=== PATIENT | female | born 1995 | race Caucasian/White ===

== ENCOUNTER 2023-06-22 09:31 | Outpatient (OUT) | payer OTHER, SELFPAY ==
[2023-06-22 10:01] LABS: Basophils Absolute Auto 0.1 10^3/uL (0.0-0.1); Basophils Percent Auto 1.1 % (0.2-2.0); Eosinophils Absolute Auto 0.7 10^3/uL (0.0-0.7); Eosinophils Percent Auto 6.4 % (0.9-7.0); Hematocrit 40.3 % (36.0-48.0); Hemoglobin 13.3 g/dL (12.0-16.0); Immature Granulocytes Abs Auto 0.06 10^3/uL (0.00-0.03); Immature Granulocytes Pct Auto 0.6 % (0.0-0.5); Lymphocytes Absolute Auto 2.2 10^3/uL (1.2-3.8); Lymphocytes Percent Auto 20.7 % (20.5-60.0); Mean Corpuscular Hemoglobin 27.3 pg (26.7-34.0); Mean Corpuscular Volume 82.6 fL (81.0-99.0); Mean Platelet Volume 11.3 fL (9.5-13.5); Monocytes Absolute Auto 0.7 10^3/uL (0.3-0.8); Monocytes Percent Auto 6.2 % (1.7-12.0); Platelet Count 265 10^3/uL (150-450); Red Blood Count 4.88 10^6/uL (4.20-5.40); Red Cell Distribution Width 12.4 % (11.0-15.0); White Blood Count 10.8 10^3/uL (4.0-11.0)
[2023-06-22 10:05] LABS: INR 0.98; Partial Thromboplastin Time 30.3 sec (22.3-36.2); Prothrombin Time 10.4 sec (9.0-11.6)
[2023-06-22 10:08] LABS: Estimated Average Glucose 114 mg/dL; Glycohemoglobin A1C 5.6 % (4.5-6.2)
[2023-06-22 10:25] LABS: Free T4 0.97 ng/dL (0.76-1.46)
[2023-06-22 10:30] LABS: HCG Quantitative <1 mIU/mL; Thyroid Stimulating Hormone 2.061 uIU/mL (0.358-3.740)
== END 2023-06-22 09:32 | disposition home or self-care (01) ==
LOC: LAB 09:35
PROVIDERS: PCP Internal Medicine; Visit Provider Physician Assistant
DX: N94.10 Unspecified dyspareunia (principal); N92.1 Excessive and frequent menstruation with irregular cycle
CPT/HCPCS: 36415; 83036; 84439; 84443; 84702; 85025; 85610; 85730

== ENCOUNTER 2023-08-18 19:45 | Outpatient (REF) | payer OTHER, SELFPAY ==
--- OUTSIDE RECORDS SUMMARY | 2023-08-18 19:50 | XMS_ITS | CCD ---
Author Name Unknown Address [address] [place] [address] Organization [facility] Care Team Providers Care Pit Clerk Name Role Phone Cici Fulton Primary [facility] Provider [facility] CICI FULTON Primary Care Unavailable Cici Fulton Primary Care Provider CICI FULTON Primary Care Unavailable VON KUNZ Attending Unavailable Cici Fulton Primary Care Provider [phone] SABINE ., DR ROQUE Attending Unavailable SABINE ., DR ROQUE Consulting Unavailable SABINE ., DR ROQUE Primary Care Unavailable SABINE ., DR ROQUE Admitting Unavailable Cici Fulton Primary Care Provider [phone] Asaad, Imad Unavailable VIPIN HAMPTON Attending Unavailable CICI FULTON Primary Care Unavailable CICI FULTON Primary Care Unavailable BECCA MAK Attending Unavailable CICI FULTON Primary Care Unavailable NAM JEFFREY Attending Unavailable CICI FULTON Primary Care Unavailable Cici Fulton Primary Care Provider [phone] Allergies Allergy Classification Reported Allergen(s) Marco rgy Type Date of Onset Reaction(s) Facility atomoxetine (1 source) atomoxetine Drug Allergy 012 [facility] medroxyPROGESTERone (1 source) medroxyPROGESTERone Drug Allergy 012 [facility] (11 sources) atomoxetine Drug Allergy 012 [place], [place] (12 sources) medroxyPROGESTERone; Translations: [Depo-Provera] Drug Allergy 012 [place], [place] (1 source) atomoxetine Drug Allergy 016 [facility] (2 sources) atomoxetine Drug Allergy [facility] [employer] Other (2 sources) medroxyPROGESTERone Drug Allergy HTN [facility] Nexsan Other Medications Current Medications Medication Drug Class(es) Dates Sig (Normalized) Sig (Original) Acetaminophen / HYDROcodone (2 sources) Opioid Agonist Start: 09-21-2021 hydrocodone-acetam inophen (NORCO) tablet 5-325 mg (STARTER PACK) Start: 09-21-2021 End: 09-21-2021 HYDROcodone-acetaminophen (N ORCO) 5-325 MG per tablet 1 tablet Blood Pressure Monitoring (BLOOD PRESSURE CUFF) [facility] (12 sources) Start: 03-30-2015 Blood Pressure Monitoring (BLOOD PRESSURE CUFF) [facility] Indications: Essential hypertension 1 kit by Does not apply route daily DX Hypertension 1 each 0 03/30/2015 Active gentamicin 3 mg/ml ophthalmic solution (1 source) Start: 04-16-2022 End: 04-26-2022 take 1 drop(s) into the eye(s) four times daily gentamicin (GARAMYCIN) 0.3 % ophthalmic solution Place 1 drop into both eyes 4 times daily for 10 days 1 each 0 04/16/2022 04/26/2022 Active ibuprofen 600 mg oral tablet (1 source) Nonsteroidal Anti-inflammatory Drug Start: 05-10-2023 take 1 tablet by mouth every six hours as needed for pain ibuprofen (IBU) 600 MG tablet Take 1 tablet by mouth every 6 hours as needed for Pain 120 tablet 0 05/10/2023 Active lisdexamfetamine dimesylate 30 mg oral capsule (5 sources) Central Nervous System Stimulant take 1 capsule by mouth once daily in the morning lisdexamfetamine (VYVANSE) 30 MG capsule Take 1 capsule by mouth every morning. 0 Active End: 07-05-2019 take 1 tablet by mouth once daily Lisdexamfetamine Dimesylate (VYVANSE) 40 MG CAPS Indications: Bicuspid aortic valve , Aortic stenosis , Aortic regurgitation Take 1 tablet by mouth daily. 0 07/05/2019 Discontinued (Therapy completed) lisinopril 10 mg oral tablet (15 sources) Angiotensin Converting Enzyme Inhibitor Start: 03-28-2015 End: 07-05-2019 take 1 tablet by mouth once daily lisinopril (PRINIVIL;ZESTRIL) 10 MG tablet Indications: Bicuspid aortic valve , Aortic stenosis , Aortic regurgitation Take 1 tablet by mouth daily 30 tablet 11 03/28/2015 Active methocarbamol 750 mg oral tablet (1 source) Muscle Relaxant Start: 03-06-2023 End: 03-11-2023 take 2 tablets by mouth three times daily, then take 1 tablet by mouth four times daily methocarbamol (ROBAXIN-750) 750 MG tablet Take 2 tablets by mouth 3 times daily for 2 days, THEN 1 tablet 4 times daily for 3 days. 24 tablet 0 03/06/2023 03/11/2023 Active metroNIDAZOLE 250 mg oral tablet (1 source) Nitroimidazole Antimicrobial Start: 03-05-2022 End: 03-12-2022 metroNIDAZOLE (FLAGYL) 250 MG tablet Take 1 tablet by mouth in the morning and 1 tablet at noon and 1 tablet before bedtime. Do all this for 7 days. 21 tablet 0 03/05/2022 03/12/2022 Active naproxen 500 mg oral tablet (1 source) Nonsteroidal Anti-inflammatory Drug Start: 03-06-2023 End: 03-11-2023 take 1 tablet by mouth twice daily at mealtime naproxen (NAPROSYN) 500 MG tablet Take 1 tablet by mouth 2 times daily (with meals) for 5 days 10 tablet 0 03/06/2023 03/11/2023 Active omeprazole 20 mg delayed release oral capsule (14 sources) Proton Pump Inhibitor take 1 capsule by mouth once daily omeprazole (PRILOSEC) 20 MG delayed release capsule Take 1 capsule by mouth daily 0 Active Completed/Discontinued Medications Medication Drug Class(es) Dates Sig (Normalized) Sig (Original) acetaminophen 500 mg oral tablet (1 source) Start: 09-21-2021 End: 09-21-2021 acetaminophen (TYLENOL) tablet 1,000 mg amoxicillin 500 mg oral capsule (3 sources) Penicillin-class Antibacterial Start: 09-25-2014 End: 07-05-2019 take 4 capsules by mouth once amoxicillin (AMOXIL) 500 MG capsule Take 4 capsules by mouth once for 1 dose. 16 capsule 4 09/25/2014 07/05/2019 Discontinued (Therapy completed) End: 07-10-2020 take 1 capsule by mouth three times daily amoxicillin (AMOXIL) 500 MG capsule Take 500 mg by mouth 3 times daily 0 07/10/2020 Discontinued (LIST CLEANUP) azithromycin 250 mg oral tablet (2 sources) Macrolide Antimicrobial Start: 03-05-2022 End: 03-05-2022 azithromycin (ZITHROMAX) tablet 500 mg 24 hr buPROPion hydrochloride 150 mg extended release oral tablet (8 sources) Aminoketone End: 12-15-2022 take 1 tablet by mouth once daily in the morning buPROPion (WELLBUTRIN XL) 150 MG extended release tablet Take 150 mg by mouth every morning 0 12/15/2022 Discontinued (LIST CLEANUP) busPIRone hydrochloride 7.5 mg oral tablet (8 sources) End: 12-15-2022 take 1 tablet by mouth three times daily busPIRone (BUSPAR) 7.5 MG tablet Take 7.5 mg by mouth 3 times daily 0 12/15/2022 Discontinued (LIST CLEANUP) take 1 tablet by mouth once heidi y busPIRone (BUSPAR) 7.5 MG tablet Take 7.5 mg by mouth daily 0 Active cefTRIAXone 500 mg injection (1 source) Cephalosporin Antibacterial Start: 03-05-2022 End: 03-05-2022 cefTRIAXone (ROCEPHIN) injection 500 mg Ethinyl Estradiol / Ferrous fumarate / Norethindrone (1 source) Estrogen Start: 11-02-2012 End: 07-05-2019 take 1 tablet by mouth once daily, then take 0.05-1 tablets by mouth once norethindrone-ethi nyl estradiol (LOESTRIN FE 08/29) 1-20 MG-MCG per tablet Take 1 tablet by mouth daily. 1 packet 12 11/02/2012 07/05/2019 Discontinued (Therapy completed) ethinyl estradiol 0.035 mg / norethindrone 0.75 mg oral tablet (3 sources) Estrogen Start: 03-04-2015 End: 07-05-2019 take 1 tablet by mouth once daily NORTREL 7/7/7 0.5/0.75/1-35 MG-MCG per tablet Take 1 tablet by mouth daily 3 03/04/2015 07/05/2019 Discontinued (Therapy completed) take 1 tablet by rin th every twenty-four hours Nortrel 7/7/7 0.5/0.75/1-35 MG-MCG 1 tablet Orally Once a day Not-Taking iopamidol (ISOVUE-370) 76 % injection 75 mL (3 sources) Start: 09-21-2021 End: 09-21-2021 iopamidol (ISOVUE-370) 76 % injection 75 mL Start: 12-31-2020 End: 12-31-2020 iopamidol (ISOVUE-370) 76 % injection 75 mL Start: 07-10-2020 End: 07-10-2020 iopamidol (ISOVUE-370) 76 % injection 75 mL 2 ml ketorolac tromethamine 30 mg/ml cartridge (4 sources) Nonsteroidal Anti-inflammatory Drug, Cyclooxygenase Inhibitor Start: 03-06-2023 End: 03-06-2023 ketorolac (TORADOL) injection 60 mg Start: 12-15-2022 ketorolac (TOR ADOL) injection 30 mg Start: 12-15-2022 End: 03-06-2023 take 1 tablet by mouth every eight hours as needed for pain ketorolac (TORADOL) 10 MG tablet Take 1 tablet by mouth every 8 hours as needed for Pain 15 tablet 0 12/15/2022 03/06/2023 Discontinued (Therapy completed) lamoTRIgine 200 mg oral tablet (3 sources) Mood Stabilizer, Anti-epileptic Agent Start: 03-06-2015 End: 07-05-2019 take 1 tablet by mouth once daily lamoTRIgine (LAMICTAL) 200 MG tablet Take 200 mg by mouth daily 5 03/06/2015 07/05/2019 Discontinued (Therapy completed) take 1 tablet by rin th every twelve hours LaMICtal 150 MG 1 tablet Orally Twice a day Not-Taking 10 ml lidocaine hydrochloride 10 mg/ml injection (1 source) Antiarrhythmic, Amide Local Anesthetic Start: 03-06-2023 End: 03-06-2023 lidocaine PF 1 % injection 5 mL Start: 03-06-2023 End: 03-06-2023 lidocaine PF 1 % injection 5 mL loratadine 10 mg oral tablet (2 sources) take 1 tablet by mouth once daily Loratadine 10 MG 1 tablet Orally Once a day Not-Taking Magic Mouthwash (MIRACLE MOUTHWASH) (1 source) Start: 6 End: 9 Magic Mouthwash (MIRACLE MOUTHWASH) Swish and spit 5 mLs 4 times daily as needed for Irritation 240 mL 0 06/27/2016 07/05/2019 Discontinued (Therapy completed) 2 ml ondansetron 2 mg/ml injection (16 sources) Serotonin-3 Receptor Antagonist Start: 0 End: 0 ondansetron (ZOFRAN) injection 4 mg Start: 07-06-2019 take 1 tablet by rin th every eight hours as needed for nausea ondansetron (ZOFRAN ODT) 4 MG disintegrating tablet Take 1 tablet by mouth every 8 hours as needed for Nausea or Vomiting 20 tablet 0 07/06/2019 Active Start: 07-05-2019 End: 07-05-2019 ondansetron (ZOFRAN) injecti on 4 mg Start: 01-12-2015 End: 07-05-2019 ondansetron (ZOFRAN) 4 MG ta blet 0 01/12/2015 07/05/2019 Discontinued (Therapy completed) Zofran Not-Takin g 2 ml orphenadrine citrate 30 mg/ml injection (1 source) Muscle Relaxant Start: 03-06-2023 End: 03-06-2023 orphenadrine (NORFLEX) injection 60 mg Start: 03-06-2023 End: 03-06-2023 orphenadrine (NORFLEX) injec tion 60 mg pantoprazole 40 mg delayed release oral tablet (3 sources) Proton Pump Inhibitor Start: 12-03-2015 take 1 tablet by mouth every twenty-four hours Pantoprazole Sodium 40 mg 1 tablet Orally Once a day for 30 days Nov, Not-Taking End: 07-05-2019 take 40 mg by mouth once daily before breakfast pantoprazole sodium (PROTONIX) 40 MG PACK packet Take 40 mg by mouth every morning (before breakfast) 0 07/05/2019 Discontinued (Therapy completed) RABEprazole sodium 20 mg delayed release oral tablet (2 sources) Proton Pump Inhibitor Start: 01-11-2015 take 1 tablet by mouth every twenty-four hours Aciphex 20 mg 1 tablet Orally Once a day for 30 day(s) Jan, Not-Taking raNITIdine (3 sources) Histamine-2 Receptor Antagonist Ranitidine 1 tab Oral Not-Taking End: 07-05-2019 take 1 tablet by mouth twice daily ranitidine (ZANTAC) 150 MG tablet Indications: Bicuspid aortic valve , Aortic stenosis , Aortic regurgitation Take 150 mg by mouth 2 times daily. 0 07/05/2019 Discontinued (Therapy completed) 50 ml sodium chloride 9 mg/m l injection (2 sources) Start: 07-10-2020 End: 07-10-2020 0.9 % sodium chloride bolus Start: 07-05-2019 End: 07-06-2019 0.9 % sodium chloride bolus sucralfate 1000 mg oral tablet (2 sources) Aluminum Complex Start: 01-19-2020 take 1 tablet by mouth every eight hours Sucralfate 1 GM 1 tablet on an empty stomach Orally tid for 30 day(s) Jan, Not-Taking tetracaine hydrochloride 5 mg/ml ophthalmic solution (1 source) Deepthi Local Anesthetic Start: 04-16-2022 End: 04-16-2022 tetracaine (TETRAVISC) 0.5 % ophthalmic solution 1 drop Problems Active Problems Problem Classification Problem Date Documented Da te Episodic/Chronic Abdominal pain (1 source) Abdominal pain; Translations: [Abdominal pain, unspecified abdominal location] Episodic Attention-deficit conduct and disruptive behavior disorders (12 sources) Attention deficit hyperactivity disorder, predominantly inattentive type; Translations: [Other specified behavioral and emotional disorders with onset usually occurring in childhood and adolescence] Onset: 2 07-13-2012 Chronic Cardiac and circulatory congenital anomalies (12 sources) Bicuspid aortic valve; Translations: [Congenital insufficiency of aortic valve] Onset: 2 05-05-2012 Chronic Esophageal disorders (2 sources) Gastroesophageal reflux disease; Translations: [Gastro-esophageal reflux disease without esophagitis] Chronic Gastrointestinal hemorrhage (2 sources) Rectal hemorrhage; Translations: [Rectal Bleeding] Onset: 3 Episodic Heart valve disorders (20 sources) Aortic valve stenosis; Translations: [Aortic valve regurgitation] Onset: 2 05-05-2012 Chronic Inflammation; infection of eye (except that caused by tuberculosis or sexually transmitteddisease) (1 source) Bilateral viral conjunctivitis; Translations: [Other viral conjunctivitis] Episodic Nausea and vomiting (5 sources) Nausea, vomiting and diarrhea; Translations: [Nausea and vomiting] Episodic Other infections; including parasitic (1 source) Infection by Trichomonas; Translations: [Trichomoniasis, unspecified] Episodic Other injuries and conditions due to external causes (1 source) Injury of left knee; Translations: [Unspecified injury of left lower leg, sequela] Episodic Other injuries and conditions due to external causes (1 source) Unspecified injury of left lower leg, sequela; Translations: [Unspecified injury of left lower leg, sequela] Onset: Episodic Other non-traumatic joint disorders (1 source) Pain in left knee; Translations: [Pain in joint, lower leg] Episodic Superficial injury; contusion (1 source) Contusion of left knee; Translations: [Contusion of left knee, initial encounter] Episodic Past or Other Problems Problem Classification Problem Date Documented Date Episodic/Chronic Immunizations and screening for infectious disease (5 sources) Exposure to sexually transmissible disorder; Translations: [Contact with and (suspected) exposure to infections with a predominantly sexual mode of transmission] Onset: 09-02-2022 Episodic Nonspecific chest pain (13 sources) Chest pain; Translations: [Chest pain, unspecified] Onset: 03-28-2014 03-28-2014 Episodic Other non-traumatic joint disorders (2 sources) Knee pain; Translations: [Knee Pain] Onset: 12-15-2022 Episodic Spondylosis; intervertebral disc disorders; other back problems (2 sources) Spasm of back muscles; Translations: [Muscle spasm of back] Onset: 03-06-2023 Episodic Results Test Name Value Interpretation Reference Range Facility XR KNEE LEFT (3 VIEWS)on XR KNEE LEFT (3 VIEWS) EXAMINATION: THREE XRAY VIEWS OF THE LEFT KNEE 05/10/2023 2:00 pm COMPARISON: 12/15/2022. HISTORY: ORDERING SYSTEM PROVIDED HISTORY: pain TECHNOLOGIST PROVIDED HISTORY: pain FINDINGS: Mineralization appears normal. There are mild tricompartmental osteophytes with mild medial compartment narrowing. There is no joint effusion. No fracture, dislocation or focal bone lesion is identified. IMPRESSION: 1. No acute fracture or dislocation. 2. 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 Interpreted by: Ephraim Plascencia MD Signed by: Ephraim Plascencia MD 05/10/23 Final result Normal [facility] XR KNEE LEFT (3 VIEWS)on XR KNEE LEFT (3 VIEWS) EXAMINATION: THREE XRAY VIEWS OF THE LEFT KNEE 12/15/2022 5:46 pm COMPARISON: None. HISTORY: ORDERING SYSTEM PROVIDED HISTORY: pain TECHNOLOGIST PROVIDED HISTORY: pain FINDINGS: No stress or traumatic fractures are detected. No joint effusion is found. Periarticular soft tissues are unremarkable in appearance. IMPRESSION: No acute abnormality identified. Interpreted by: Gaetano Patel MD Signed by: Gaetano Patel MD 12/15/22 Final result Normal [facility] No acute abnormality identified. [facility] EXAMINATION: THREE XRAY VIEWS OF THE LEFT KNEE 12/15/2022 5:46 pm COMPARISON: None. HISTORY: ORDERING SYSTEM PROVIDED HISTORY: pain TECHNOLOGIST PROVIDED HISTORY: pain FINDINGS: No stress or traumatic fractures are detected. No joint effusion is found. Periarticular soft tissues are unremarkable in appearance. [facility] Gaetano Patel MD - 12/15/2022 EXAMINATION: THREE XRAY VIEWS OF THE LEFT KNEE 12/15/2022 5:46 pm COMPARISON: None. HISTORY: ORDERING SYSTEM PROVIDED HISTORY: pain TECHNOLOGIST PROVIDED HISTORY: pain FINDINGS: No stress or traumatic fractures are detected. No joint effusion is found. Periarticular soft tissues are unremarkable in appearance. IMPRESSION: No acute abnormality identified. [facility] Phone: Radiology Study observation (narrative) [facility] [employer] Phone: XR KNEE LEFT (3 VIEWS)Ordere d By: Gaetano Patel on 12-15-[address] [facility] Phone: CHLAMYDIA/GONOCOCCUS LIZBETH (SW AB/URINE/PAPon 09-04-2022 Chlamydia trachomatis, LIZBETH Negative Normal Negative [facility] Comment on above: Performed By: #### C T/NGNA #### [facility] [address] [place] [address] Dr. Alek Barnes Neisseria gonorrhoeae, LIZBETH Negative Normal Negative [facility] Comment on above: Performed By: #### C T/NGNA #### [facility] [address] [place] [address] Dr. Alek Barnes VAGINITIS/VAGINOSIS DNA PROB Alberto 09-04-2022 Vianey species Negative Normal Negative [facility] Comment on above: Performed By: #### V AGINT #### [facility] [address] [address] [address] Alek Barnes Gardnerella vaginalis Positive Abnormal Negative [facility] Comment on above: Performed By: #### V AGINT #### [facility] [address] [address] [address] Alek Barnes Trichomonas vaginalis Negative Normal Negative [facility] Comment on above: Performed By: #### V AGINT #### [facility] [address] [address] [address] Alek Barnes EKG 12 LeadOrdered By: Comfort Desir hmad on 04-01-2022 Atrial Rate 64 BPM [employer] Work Phone: P [place] 37 degrees [employer] Work Phone: P-R Interval 138 ms [employer] Work Phone: Q-T Interval 398 ms [employer] Work Phone: QRS Duration 96 ms [employer] Work Phone: QTc Calculation (Bazett) 410 ms [employer] Work Phone: R [place] 2 degrees [employer] Work Phone: T [place] 47 degrees [employer] Work Phone: Ventricular Rate 64 BPM [facility] [employer] [employer] Work Phone: [employer] Work Phone: EKG 12 Leadon 04-01-2022 Normal sinus rhythm Septal infarct (cited on or before 31-DEC-2020) Nonspecific ST and T wave abnormality Abnormal ECG When compared with ECG of 31-DEC-2020 21:45, Nonspecific T wave abnormality, worse in Inferior leads Confirmed by Comfort Licona MD ([id number]) on 04/01/2022 7:48:19 PM [facility] Comfort Licona MD - 04/01/2022 Normal sinus rhythm Septal infarct (cited on or before 31-DEC-2020) Nonspecific ST and T wave abnormality Abnormal ECG When compared with ECG of 31-DEC-2020 21:45, Nonspecific T wave abnormality, worse in Inferior leads Confirmed by Comfort Licona MD ([id number]) on 04/01/2022 7:48:19 PM [facility] Work Phone: Microscopic Urinalysison - [facility] Bacteria, UA 2+ Abnormal None [facility] Epithelial Cells UA 5 TO 10 [facility] Interpretation and review of laboratory results Abnormal [facility] Mucus, UA 3+ Abnormal None [facility] RBC, UA 0 TO 2 [facility] Trichomonas, UA PRESENCE NOTED Abnormal None [facility] WBC, UA 10 TO 20 [facility] , Urineon 2 Beta HCG ( test) Ql (U) Negative NEGATIVE [facility] Comment on above: Specimens with hCG l evels near the threshold of the test (25 mIU/mL) may give a negative or indeterminate result. In such cases, another test should be performed with a new specimen in 48-72 hours. If early is suspected clinically in this setting, correlation with quantitative serum b-hCG level is suggested. [employer] has confirmed the use of plasma for this test. This has not been cleared or approved by the U.S. Food and Drug Administration. The FDA has determined that such clearance is not necessary. [facility] Urinalysis with Reflex to Cu ltureon 03-05-2022 Bilirubin Urine Negative NEGATIVE [facility] Color, UA Yellow Yellow [facility] Glucose, Ur Negative NEGATIVE [facility] Interpretation and review of laboratory results Abnormal [facility] Ketones Ql (U) Negative NEGATIVE [facility] Leukocyte esterase Test strip Ql (U) SMALL Abnormal NEGATIVE [facility] Nitrite, Urine Negative NEGATIVE [facility] pH, UA 6.0 5 - 9 [facility] Protein, UA Negative NEGATIVE [facility] Specific Morrison, UA 1.025 High 1.01 - 1.02 [facility] Turbidity UA Clear Clear [facility] Urine Hgb Negative NEGATIVE [facility] Urobilinogen, Urine Normal Normal [facility] Wet Prep, Genitalon 03-05-20 Direct Exam TRICHOMONAS Abnormal [facility] Direct Exam NO YEAST OBSERVED [facility] Direct Exam NO CLUE CELLS SEEN [facility] Interpretation and review of laboratory results Abnormal [facility] Specimen Description .VAGINA [facility] Complete Blood Count with Au to Diffon 09-23-2021 Basophils (Bld) [#/Vol] 0.12 10*3/uL Normal 0.00-0.20 [facility] Comment on above: Performed By: #### C BETSY, CBCAD #### [facility] [address], [place] [id number] Basophils/100 WBC (Bld) 1.1 % Normal N [facility] Specialist Comment on above: Performed By: #### C BETSY, CBCAD #### [facility] [address], [place] [id number] Eosinophils (Bld) [#/Vol] 0.42 10*3/uL Normal 0.02-0.50 [facility] Specialist Comment on above: Performed By: #### C BETSY, CBCAD #### [facility] [address], [place] [id number] Eosinophils/100 WBC (Bld) 3.8 % Normal [facility] Specialist Comment on above: Performed By: #### C MP, CBCAD #### [facility] [address], [place] [id number] Erythrocyte distribution width (RBC) [Ratio] 14.1 % Normal 11.0-15.0 [facility] Comment on above: Performed By: #### C MP, CBCAD #### [facility] [address], [place] [id number] Hematocrit (Bld) [Volume fraction] 39.6 % Normal 35.0-47.0 [facility] Comment on above: Performed By: #### C MP, CBCAD #### [facility] [address], [place] [id number] Hemoglobin (Bld) [Mass/Vol] 12.7 g/dL Normal 11.6-15.5 [facility] Comment on above: Performed By: #### C MP, CBCAD #### [facility] [address], [place] [id number] Lymphocytes (Bld) [#/Vol] 2.4 10*3/uL Normal 0.9-3.9 [facility] Comment on above: Performed By: #### C MP, CBCAD #### [facility] [address], [place] [id number] Lymphocytes/100 WBC (Bld) 21.8 % Normal [facility] Comment on above: Performed By: #### C MP, CBCAD #### [facility] [address], [place] [id number] MCH (RBC) [Entitic mass] 25.9 pg Low 27.0-33.0 [facility] Specialist Comment on above: Performed By: #### C MP, CBCAD #### [facility] [address], [place] [id number] MCHC (RBC) [Mass/Vol] 32.1 g/dL Normal 32.0-36.0 [facility] Comment on above: Performed By: #### C MP, CBCAD #### [facility] [address], [place] [id number] MCV (RBC) [Entitic vol] 81 fL Normal 80-100 [facility] Comment on above: Performed By: #### C MP, CBCAD #### [facility] [address], [place] [id number] Monocytes (Bld) [#/Vol] 0.8 10*3/uL Normal 0.2-0.9 [facility] Comment on above: Performed By: #### C MP, CBCAD #### [facility] [address], [place] [id number] Monocytes/100 WBC (Bld) 7.0 % Normal [facility] Comment on above: Performed By: #### C MP, CBCAD #### [facility] [address], [place] [id number] Neutrophils (Bld) [#/Vol] 7.2 10*3/uL Normal 1.5-7.8 [facility] Comment on above: Performed By: #### C MP, CBCAD #### [facility] [address] [id number] Neutrophils/100 WBC (Bld) 65.4 % Normal [facility] Comment on above: Performed By: #### C MP, CBCAD #### [facility] [address], [place] [id number] Platelet mean volume (Bld) [Entitic vol] 12.80 fL High 7.50-12.50 [facility] Comment on above: Performed By: #### C MP, CBCAD #### [facility] [address], [place] [id number] Platelets (Bld) [#/Vol] 217 10*3/uL Normal 140-400 [facility] Comment on above: Performed By: #### C MP, CBCAD #### [facility] [address], [place] [id number] RBC (Bld) [#/Vol] 4.91 10*6/uL Normal 3.90-5.20 [facility] Comment on above: Performed By: #### C MP, CBCAD #### [facility] [address], [place] [id number] RDW-SD 41.4 fL Normal 37.0-50.0 [facility] Comment on above: Performed By: #### C MP, CBCAD #### [facility] [address], [place] [id number] WBC (Bld) [#/Vol] 11.0 10*3/uL Normal 3.8-11.0 [facility] Comment on above: Performed By: #### C MP, CBCAD #### [facility] [address], [place] [id number] Comprehensive Metabolic Pane [facility] 09-23-2021 Albumin [Mass/Vol] 4.3 g/dL Normal 3.6-5.1 [facility] Comment on above: Performed By: #### C MP, CBCAD #### [facility] [address], [place] [id number] Albumin/Globulin [Mass ratio] 2.4 {ratio} Normal 1.0-2.5 [facility] Comment on above: Performed By: #### C MP, CBCAD #### [facility] [address], [place] [id number] ALP [Catalytic activity/Vol] 92 U/L Normal 35-119 [facility] Comment on above: Performed By: #### C MP, CBCAD #### [facility] [address], [place] [id number] ALT [Catalytic activity/Vol] 18 U/L Normal 6-33 [facility] Comment on above: Result Comment: 07/10 Female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 lungs are clear. There is no focal consolidation or pneumothorax. The pulmonary vascular pattern is within normal limits. No significant thoracic osseous abnormality. IMPRESSION: Clear lungs. Cardiomegaly. No acute cardiopulmonary abnormality. [employer] Phone: [employer] Phone: hCG, quantitative, Ordered By: Melita Hernandes on 12-31-2020 hCG Quant <1 <5 IU/L [employer] Phone: Comment on above: Non-preg premeno <=5 Postmeno <=8 Male <=3 If HCG results do not concur with clinical observations, additional testing to confirm results is recommended. Elevated results not associated with may be found in patients with other diseases such as tumors of the germ cells (testis, ovaries, etc.), bladder, pancreas, stomach, lungs, and liver. [employer] Phone: CBC Auto Differentialon 12-0 Basophils (Bld) [#/Vol] 0.08 10*3/uL [facility] CenterDarby Smart [place] Basophils/100 WBC (Bld) 1 % 0 - 2 % M [facility] [place] Differential Type NOT REPORTED [facility] [place] Eosinophils (Bld) [#/Vol] 0.42 10*3/uL [facility] [employer] [place] Eosinophils/100 WBC (Bld) 5 % High 1 - 4 % [place] Erythrocyte distribution width (RBC) [Ratio] 12.8 % 11.8 - 14.4 % [place] Hematocrit (Bld) [Volume fraction] 40.6 % 36.3 - 47.1 % [place] Hemoglobin (Bld) [Mass/Vol] 13.3 g/dL 11.9 - 15.1 g/dL [place] Immature granulocytes (Bld) [#/Vol] 0 % 0 [place] Immature granulocytes (Bld) [#/Vol] 10*3/uL [place] Interpretation and review of laboratory results Abnormal [place] Lymphocytes (Bld) [#/Vol] 1.93 10*3/uL [place] Lymphocytes/100 WBC (Bld) 23 % Low 24 - 43 % [place] MCH (RBC) [Entitic mass] 26.2 pg 25.2 - 33.5 pg [place] MCHC (RBC) [Mass/Vol] 32.8 g/dL 28.4 - 34.8 g/dL [place] MCV (RBC) [Entitic vol] 80.1 fL Low 82.6 - 102.9 fL [place] Monocytes (Bld) [#/Vol] 0.58 10*3/uL [place] Monocytes/100 WBC (Bld) 7 % 3 - 12 % M [place] Platelet mean volume (Bld) [Entitic vol] 11.2 fL 8.1 - 13.5 fL [place] Platelets (Bld) [#/Vol] 215 10*3/uL [place] Platelets (Bld) [#/Vol] NOT REPORTED [place] RBC (Bld) [#/Vol] 5.07 10*6/uL 3.95 - 5.1 1 m/uL [place] RBC morphology finding Nom (Bld) NOT REPORTED [place] Segmented neutrophils/100 WBC (Bld) 64 % 36 - 65 % [place] Segs Absolute 5.31 [facility] [place] WBC (Bld) [#/Vol] 8.3 10*3/uL [facility] W[facility] (Bld) [#/Vol] 0.0 10*3/uL 0.0 per 10 0 WBC [facility] WBC Morphology NOT REPORTED [facility] ABDOMEN PELVIS W IV CONTR AST Additional Contrast? Noneon 07-10-2020 EXAMINATION: CT OF THE ABDOMEN AND PELVIS WITH CONTRAST 07/10/2020 7:32 pm TECHNIQUE: CT of the abdomen and pelvis was performed with the administration of intravenous contrast. Multiplanar reformatted images are provided for review. Dose modulation, iterative reconstruction, and/or weight based adjustment of the mA/kV was utilized to reduce the radiation dose to as low as reasonably achievable. COMPARISON: None. HISTORY: ORDERING SYSTEM PROVIDED HISTORY: abd pain TECHNOLOGIST PROVIDED HISTORY: abd pain FINDINGS: Lower Chest: There is a 3 mm solid right lower lobe pulmonary nodule, no follow-up imaging is recommended. Otherwise, the lungs are clear. Small hiatal hernia is noted. Organs: The liver, spleen, pancreas, adrenal glands and kidneys are unremarkable. The liver is diffusely low in attenuation consistent with hepatic steatosis. GI/Bowel: There is no bowel obstruction. The appendix is within normal limits. Pelvis: The pelvic viscera are within normal limits. Peritoneum/Retroperi toneum: There is no evidence of free fluid or adenopathy. Bones/Soft Tissues: The osseous structures are unremarkable. [facility] [place] 1. No acute abnormality. [place] Jalen, [employer] Incoming Radiant Results From [employer] - 07/10/2020 7:59 PM EST EXAMINATION: CT OF THE ABDOMEN AND PELVIS WITH CONTRAST 07/10/2020 7:32 pm TECHNIQUE: CT of the abdomen and pelvis was performed with the administration of intravenous contrast. Multiplanar reformatted images are provided for review. Dose modulation, iterative reconstruction, and/or weight based adjustment of the mA/kV was utilized to reduce the radiation dose to as low as reasonably achievable. COMPARISON: None. HISTORY: ORDERING SYSTEM PROVIDED HISTORY: abd pain TECHNOLOGIST PROVIDED HISTORY: abd pain FINDINGS: Lower Chest: There is a 3 mm solid right lower lobe pulmonary nodule, no follow-up imaging is recommended. Otherwise, the lungs are clear. Small hiatal hernia is noted. Organs: The liver, spleen, pancreas, adrenal glands and kidneys are unremarkable. The liver is diffusely low in attenuation consistent with hepatic steatosis. GI/Bowel: There is no bowel obstruction. The appendix is within normal limits. Pelvis: The pelvic viscera are within normal limits. Peritoneum/Retroperi toneum: There is no evidence of free fluid or adenopathy. Bones/Soft Tissues: The osseous structures are unremarkable. IMPRESSION: 1. No acute abnormality. [place] Comprehensive Metabolic Pane l w/ Reflex to on 07-10-2020 Albumin [Mass/Vol] 4.1 g/dL 3.5 - 5.2 g/dL [place] Albumin/Globulin [Mass ratio] 1.6 {ratio} [place] ALP [Catalytic activity/Vol] 83 U/L 35 - 104 U/L [place] ALT [Catalytic activity/Vol] 68 U/L High 5 - 33 U/L [place] Anion gap [Moles/Vol] 9 mmol/L 9 - 17 mmol/L [place] AST [Catalytic activity/Vol] 40 U/L High <32 [place] Bilirubin Ql (U) 0.27 mg/dL Low 0.3 - 1.2 mg/dL [place] Bun/Cre Ratio 20 [place] Calcium [Mass/Vol] 8.9 mg/dL 8.6 - 10. 4 mg/dL [place] Chloride [Moles/Vol] 101 mmol/L 98 - 10 7 mmol/L [place] CO2 [Moles/Vol] 24 mmol/L 20 - 31 mmol/L [place] Creatinine [Mass/Vol] 0.91 mg/dL High 0.5 - 0.9 mg/dL [place] GFR >60 >60 mL/min [place], [place] GFR Non- >60 >60 mL/min [place] Glucose [Mass/Vol] 107 mg/dL High 70 - 99 mg/dL [place] Potassium [Moles/Vol] 4.2 mmol/L 3.7 - 5.3 mmol/L [place] Protein [Mass/Vol] 6.6 g/dL 6.4 - 8.3 g/dL [place] Sodium [Moles/Vol] 134 mmol/L Low 135 - 144 mmol/L [place] Urea nitrogen [Mass/Vol] 18 mg/dL 6 - 20 mg/dL [place] Lactic Acidon 07-10-2020 Lactate [Moles/Vol] 0.9 mmol/L 0.5 - 2. 2 mmol/L [place] Lipaseon 07-10-2020 Lipase [Catalytic activity/Vol] 12 U/L Low 13 - 60 U/L [place] Metabolic Panelon 07-10-2020 GFR/1.73 sq M predicted among non-blacks MDRD (S/P/Bld) [Vol rate/Area] [place] Comment on above: Average GFR for 20-2 9 years old: 116 mL/min/1.73sq m Chronic Kidney Disease: <60 mL/min/1.73sq m Kidney failure: <15 mL/min/1.73sq m eGFR calculated using average adult body mass. Additional eGFR calculator available at: http://www.[employer]/multiple_crcl_2012.htm Stage 1: Some kidney damage normal GFR Stage 2: Mild kidney damage GFR 60-89 Stage 3: Moderate kidney damage GFR 30-59 Stage 4: Severe kidney damage GFR 15-29 Stage 5: Severe kidney damage GFR <15 ESRD - chronic treatment by dialysis or transplant Otheron 07-10-2020 Interpretation and review of laboratory results Abnormal [place] , Urineon 0 Beta HCG ( test) Ql (U) Negative NEGATIVE [place] Comment on above: Specimens with hCG l evels near the threshold of the test (25 mIU/mL) may give a negative or indeterminate result. In such cases, another test should be performed with a new specimen in 48-72 hours. If early is suspected clinically in this setting, correlation with quantitative serum b-hCG level is suggested. [employer] has confirmed the use of plasma for this test. This has not been cleared or approved by the U.S. Food and Drug Administration. The FDA has determined that such clearance is not necessary. Urinalysis, reflex to micros copicon 07-10-2020 Bilirubin Urine Negative NEGATIVE [facility] [place] Color, UA YELLOW YELLOW [place] Glucose, Ur Negative NEGATIVE [place] Interpretation and review of laboratory results Abnormal [place] Ketones Ql (U) Negative NEGATIVE [place] Leukocyte esterase Test strip Ql (U) Negative NEGATIVE [place] Nitrite, Urine Negative NEGATIVE [place] pH, UA 5.5 [place], [place] Protein (U) [Mass/Vol] Negative NEGATIVE [place] Specific [place], UA >1.030 High [place], [place] Turbidity UA CLEAR CLEAR [place] Urinalysis Comments NOT REPORTED [place] Urine Hgb Negative NEGATIVE [place] Urobilinogen, Urine Normal Normal [place] CBCon 07-05-2019 Erythrocyte distribution width (RBC) [Ratio] 12.5 % 11.8 - 14.4 % [place] Hematocrit (Bld) [Volume fraction] 45.1 % 36.3 - 47.1 % [place] Hemoglobin (Bld) [Mass/Vol] 15.0 g/dL 11.9 - 15.1 g/dL [place] Interpretation and review of laboratory results Abnormal [place] MCH (RBC) [Entitic mass] 27.0 pg 25.2 - 33.5 pg [place] MCHC (RBC) [Mass/Vol] 33.3 g/dL 28.4 - 34.8 g/dL [place] MCV (RBC) [Entitic vol] 81.1 fL Low 82.6 - 102.9 fL [place] Platelet mean volume (Bld) [Entitic vol] 11.1 fL 8.1 - 13.5 fL [place] Platelets (Bld) [#/Vol] 229 10*3/uL [place] RBC (Bld) [#/Vol] 5.56 10*6/uL High 3.95 - 5.1 1 m/uL [place] WBC (Bld) [#/Vol] 0.0 10*3/uL 0.0 per 10 0 WBC [place] WBC (Bld) [#/Vol] 14.8 10*3/uL High [place] Comprehensive Metabolic Pane brynn 07-05-2019 Albumin [Mass/Vol] 4.4 g/dL 3.5 - 5.2 g/dL [place] Albumin/Globulin [Mass ratio] 1.6 {ratio} [place] ALP [Catalytic activity/Vol] 101 U/L 35 - 104 U/L [place] ALT [Catalytic activity/Vol] 34 U/L High 5 - 33 U/L [place] Anion gap [Moles/Vol] 16 mmol/L 9 - 17 mmol/L [place] AST [Catalytic activity/Vol] 24 U/L <32 [place] Bilirubin Ql (U) 0.54 mg/dL 0.3 - 1.2 mg/dL [place] Bun/Cre Ratio 22 [place] Calcium [Mass/Vol] 9.0 mg/dL 8.6 - 10. 4 mg/dL [place] Chloride [Moles/Vol] 98 mmol/L 98 - 10 7 mmol/L [place] CO2 [Moles/Vol] 22 mmol/L 20 - 31 mmol/L [place] Creatinine [Mass/Vol] 0.83 mg/dL 0.5 - 0.9 mg/dL [place] GFR >60 >60 mL/min [place], [place] GFR Non- >60 >60 mL/min [place] Glucose [Mass/Vol] 115 mg/dL High 70 - 99 mg/dL [place] Potassium [Moles/Vol] 4.4 mmol/L 3.7 - 5.3 mmol/L [place] Protein [Mass/Vol] 7.2 g/dL 6.4 - 8.3 g/dL [place] Sodium [Moles/Vol] 136 mmol/L 135 - 144 mmol/L [place] Urea nitrogen [Mass/Vol] 18 mg/dL 6 - 20 mg/dL [place] Lipaseon 07-05-2019 Lipase [Catalytic activity/Vol] 11 U/L Low 13 - 60 U/L [place] Metabolic Panelon 07-05-2019 GFR/1.73 sq M predicted among non-blacks MDRD (S/P/Bld) [Vol rate/Area] [place] Comment on above: Stage 1: Some kidney damage normal GFR Stage 2: Mild kidney damage GFR 60-89 Stage 3: Moderate kidney damage GFR 30-59 Stage 4: Severe kidney damage GFR 15-29 Stage 5: Severe kidney damage GFR <15 ESRD - chronic treatment by dialysis or transplant Average GFR for 20-2 9 years old: 116 mL/min/1.73sq m Chronic Kidney Disease: <60 mL/min/1.73sq m Kidney failure: <15 mL/min/1.73sq m eGFR calculated using average adult body mass. Additional eGFR calculator available at: http://www.[employer]/multiple_crcl_2012.htm Microscopic Urinalysison Amorphous, UA 1+ Abnormal None [place] Bacteria, UA 3+ Abnormal None [place] Casts UA NOT REPORTED /LPF [place] Crystals UA NOT REPORTED None /HPF [place] Epithelial Cells UA 10 TO 20 [place] Interpretation and review of laboratory results Abnormal [place] Mucus, UA NOT REPORTED None [place] Other Observations UA NOT REPORTED NOT REQ. M [place] RBC (U) [#/Vol] 0 TO 2 [facility] [place] Renal Epithelial, Urine NOT REPORTED 0 /HPF [place] Trichomonas, UA NOT REPORTED None [facility] [place] WBC, UA 0 TO 2 [place] Yeast, UA NOT REPORTED None [place] - [place] Otheron 07-05-2019 Interpretation and review of laboratory results Abnormal [place] , Urineon 9 Beta HCG ( test) Ql (U) Negative NEGATIVE [place] Comment on above: Specimens with hCG l evels near the threshold of the test (25 mIU/mL) may give a negative or indeterminate result. In such cases, another test should be performed with a new specimen in 48-72 hours. If early is suspected clinically in this setting, correlation with quantitative serum b-hCG level is suggested. [employer] has confirmed the use of plasma for this test. This has not been cleared or approved by the U.S. Food and Drug Administration. The FDA has determined that such clearance is not necessary. Urinalysis Reflex to Culture on 07-05-2019 Bilirubin Urine Negative NEGATIVE [place] Color, UA YELLOW YELLOW [place] Glucose, Ur Negative NEGATIVE [place] Interpretation and review of laboratory results Abnormal [place] Ketones Ql (U) Negative NEGATIVE [place] Leukocyte esterase Test strip Ql (U) Negative NEGATIVE [place] Nitrite, Urine Positive Abnormal NEGATIVE [place] pH, UA 6.0 [place] Protein (U) [Mass/Vol] 2+ Abnormal NEGATIVE [place] Specific [place], UA >1.030 High [place], [place] Turbidity UA TURBID Abnormal CLEAR [place] Urinalysis Comments NOT REPORTED [place] Urine Hgb Negative NEGATIVE [place] Urobilinogen, Urine Normal Normal [place] Vital Signs Date Time Vital Sign Value Performing Clinician Facility 06-01-2023 14:30-0400 Body height 160.02 cm [employer] Other [employer] Other 06-01-2023 14:30-0400 Body mass index (BMI) [Ratio] 41.36 kg/m2 [employer] Other [employer] Other 06-01-2023 14:30-0400 Body weight 105.92 kg [employer] Other [employer] Other 06-01-2023 14:30-0400 Diastolic blood pressure 99 mm[Hg] Imad Asaad Other [employer] Other 06-01-2023 14:30-0400 Systolic blood pressure 156 mm[Hg] Imad Asaad Other [employer] Other 03-06-2023 10:00-0400 Body temperature 98.6 [degF] Nam Jeffrey MD [facility] [email or web address] 03-06-2023 10:00-0400 Diastolic blood pressure 68 mm[Hg] [facility] 03-06-2023 10:00-0400 Heart rate 78 /min Nam Jeffrey MD [facility] [employer] 03-06-2023 10:00-0400 Respiratory rate 20 /min Nam [facility] 03-06-2023 10:00-0400 SaO2% (BldA) [Mass fraction] 99 % Nam Jeffrey MD [facility] [employer] 03-06-2023 10:00-0400 Systolic blood pressure 146 mm[Hg] Nam [facility] 12-15-2022 21:52-0400 Diastolic blood pressure 74 mm[Hg] Becca Mak MD Work Phone: [facility] [employer] 12-15-2022 21:52-0400 Heart rate 74 /min Becca Mak MD Work Phone: [employer] 12-15-2022 21:52-0400 Respiratory rate 15 /min Becca Mak MD Work Phone: [employer] 12-15-2022 21:52-0400 SaO2% (BldA) [Mass fraction] 99 % Becca Mak MD Work Phone: [facility] [employer] 12-15-2022 21:52-0400 Systolic blood pressure 121 mm[Hg] Becca Mak MD Work Phone: [employer] 12-15-2022 20:35-0400 Body temperature 98.01 [degF] Becca Mak MD Work Phone: [employer] 04-16-2022 12:08-0400 Body height 160 cm Von Kunz MD Work Phone: [employer] 04-16-2022 12:08-0400 Body mass index (BMI) [Ratio] 38.97 kg/m2 Von Kunz MD Work Phone: [employer] 04-16-2022 12:08-0400 Body temperature 98.1 [degF] Von Kunz MD Work Phone: [employer] 04-16-2022 12:08-0400 Body weight 99.79 kg Von Kunz MD Work Phone: [employer] 04-16-2022 12:08-0400 Diastolic blood pressure 77 mm[Hg] Von Kunz MD Work Phone: [employer] 04-16-2022 12:08-0400 Heart rate 77 /min Von Kunz MD Work Phone: [employer] 04-16-2022 12:08-0400 Respiratory rate 16 /min Von Kunz MD Work Phone: [employer] 04-16-2022 12:08-0400 SaO2% (BldA) [Mass fraction] 98 % Von Kunz MD Work Phone: [employer] 04-16-2022 12:08-0400 Systolic blood pressure 115 mm[Hg] Von Kunz MD Work Phone: [employer] 03-05-2022 14:16-0400 Body temperature 98.1 [degF] Cici Fulton Work Phone: [employer] 03-05-2022 14:16-0400 Diastolic blood pressure 97 mm[Hg] Cici Fulton Work Phone: [facility] [employer] 03-05-2022 14:16-0400 Heart rate 69 /min Cici Fulton Work Phone: [facility] 03-05-2022 14:16-0400 Respiratory rate 18 /min Cici Fulton Work Phone: [facility] 03-05-2022 14:16-0400 SaO2% (BldA) [Mass fraction] 95 % Cici Fulton Work Phone: [facility] 03-05-2022 14:16-0400 Systolic blood pressure 161 mm[Hg] Cici Fulton Work Phone: [facility] [employer] 09-21-2021 11:35-0500 Body height 160 cm Nam [facility] 09-21-2021 11:35-0500 Body mass index (BMI) [Ratio] 38.97 kg/m2 Nam Jeffrey [facility] 09-21-2021 11:35-0500 Body temperature 97.9 [degF] Nam Jeffrey [facility] 09-21-2021 11:35-0500 Body weight 99.79 kg Nam Jeffrey [facility] 09-21-2021 11:35-0500 Diastolic blood pressure 87 mm[Hg] Nam Jeffrey [facility] 09-21-2021 11:35-0500 Heart rate 92 /min Nam Jeffrey [facility] 09-21-2021 11:35-0500 Respiratory rate 20 /min Nam Jeffrey MD [facility] 09-21-2021 11:35-0500 SaO2% (BldA) [Mass fraction] 99 % Nam Jeffrey MD [facility] 09-21-2021 11:35-0500 Systolic blood pressure 161 mm[Hg] Nam Jeffrey [facility] 09-21-2021 04:00-0500 Diastolic blood pressure 78 mm[Hg] Cici Fulton Work Phone: [employer] 09-21-2021 04:00-0500 Heart rate 89 /min Cici Fulton Work Phone: [employer] 09-21-2021 04:00-0500 Respiratory rate 16 /min Cici Fulton Work Phone: [employer] 09-21-2021 04:00-0500 SaO2% (BldA) [Mass fraction] 94 % Cici Fulton Work Phone: [employer] 09-21-2021 04:00-0500 Systolic blood pressure 100 mm[Hg] Cici Fulton Work Phone: [employer] 09-21-2021 03:55-0500 Body height 160 cm Cici Fulton Work Phone: [employer] 09-21-2021 03:55-0500 Body mass index (BMI) [Ratio] 39.86 kg/m2 Cici Fulton Work Phone: [employer] 09-21-2021 03:55-0500 Body weight 102.06 kg Cici Fulton Work Phone: [employer] 09-21-2021 03:53-0500 Body temperature 98.2 [degF] Cici Fulton Work Phone: [employer] 12-31-2020 23:15-0400 Diastolic blood pressure 46 mm[Hg] Cici Fulton Work Phone: [employer] Work Phone: 12-31-2020 23:15-0400 Heart rate 84 /min Cici Fulton Work Phone: [employer] Work Phone: 12-31-2020 23:15-0400 Respiratory rate 19 /min Cici Fulton Work Phone: [employer] Work Phone: 12-31-2020 23:15-0400 SaO2% (BldA) [Mass fraction] 94 % Cici Fulton Work Phone: [employer] Work Phone: 12-31-2020 23:15-0400 Systolic blood pressure 125 mm[Hg] Cici Fulton Work Phone: [employer] Work Phone: 12-31-2020 21:06-0400 Body temperature 100 [degF] [facility] Work Phone: [facility] Work Phone: 09-11-2020 14:12-0500 BMI (Body Mass Index) 38.97 kg/m2 Barry [facility], [place] 09-11-2020 14:12-0500 Body Temperature 97 [degF] [facility], [place] 09-11-2020 14:12-0500 Body weight 99.79 kg Barry [facility], [place] 09-11-2020 14:12-0500 BP Diastolic 84 mm[Hg] [facility], [place] 09-11-2020 14:12-0500 BP Systolic 138 mm[Hg] [facility], [place] 09-11-2020 14:12-0500 Height [address] [facility], [place] 09-11-2020 14:12-0500 Pulse (Heart Rate) 72 /min [facility], [place] 09-11-2020 14:12-0500 Pulse Oximetry 99 % [facility], [place] 09-11-2020 14:12-0500 Respiratory Rate 20 /min [facility], [place] 07-10-2020 20:00-0500 BP Diastolic 82 mm[Hg] [facility] , [place] 07-10-2020 20:00-0500 BP Systolic 152 mm[Hg] [facility] , [place] 07-10-2020 20:00-0500 Pulse (Heart Rate) 55 /min [facility], [place] 07-10-2020 20:00-0500 Respiratory Rate 13 /min [facility], [place] 07-10-2020 19:46-0500 Pulse Oximetry 100 % [facility] , [place] 07-10-2020 17:53-0500 BMI (Body Mass Index) 42.99 kg/m2 [facility], [place] 07-10-2020 17:53-0500 Body Temperature 96.49 [degF] Cici [place] 07-10-2020 17:53-0500 Body weight 109.77 kg Cici Fulton [facility] [place] 07-05-2019 22:11-0500 BMI (Body Mass Index) 35.53 kg/m2 Ross Davila [place], [place] 07-05-2019 22:11-0500 Body Temperature 98.6 [degF] Ross Davila [facility] 07-05-2019 22:11-0500 Body weight 90.72 kg [place] 07-05-2019 22:11-0500 BP Diastolic 92 mm[Hg] [place] 07-05-2019 22:11-0500 BP Systolic 132 mm[Hg] Ross [place], [place] 07-05-2019 22:11-0500 Pulse (Heart Rate) 104 /min Ross Hari [place], [place] 07-05-2019 22:11-0500 Pulse Oximetry 94 % Ross Hari [place], [place] 07-05-2019 22:11-0500 Respiratory Rate 18 /min Rossshamika Davila [place] Encounters Encounter Date Encounter Type Care Provider Facility Start: 07-31-2023 End: 07-31-2023 Subsequent hospital visit by physician Irvin Singer PT [facility] Start: 07-21-2023 End: 07-21-2023 Emergency department patient visit [facility] Start: 06-24-2023 End: 06-24-2023 ambulatory Imad Asaad Other [employer] Other Start: 06-24-2023 Telephone encounter Imad Asaad [facility] Start: 06-22-2023 End: 06-22-2023 ambulatory VIPIN HAMPTON Not Available Start: 06-01-2023 End: 06-01-2023 ambulatory Imad Asaad Other [employer] Other Start: 06-01-2023 Office outpatient ne w 45 minutes Imad Asaad [facility] Start: 05-10-2023 End: 05-10-2023 Emergency department patient visit [facility] Start: 03-06-2023 End: 03-06-2023 Emergency department patient visit NAM JEFFREY [facility] Start: 03-06-2023 End: 03-06-2023 Emergency department patient visit Nam Jeffrey MD [facility] Comment on above: Back spasm (Primary Dx) Start: 12-15-2022 Emergency department patient visit [facility] Start: 12-15-2022 End: 12-15-2022 Emergency department patient visit Becca Mak MD Work Phone: [facility] Comment on above: Contusion of left kn ee, initial encounter (Primary Dx) Start: 09-02-2022 End: 09-02-[address] JUDE REGALADO . 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) Start: 04-01-2022 End: 04-01-2022 Subsequent hospital visit by physician Cici Fulton Work Phone: [facility] Start: 03-05-2022 End: 03-05-2022 Emergency department patient visit Cici Fulton Work Phone: [facility] Comment on above: STD exposure (Primar y Dx); Trichomonas infection Start: 09-21-2021 End: 09-21-2021 Emergency department patient visit Nam Jeffrey MD [facility] Comment on above: Left knee injury, se quela (Primary Dx) Start: 09-21-2021 End: 09-21-2021 Emergency department patient visit [facility] Start: 09-21-2021 End: 09-21-2021 Emergency department patient visit Cici Fulton Work Phone: [facility] ED Comment on above: Acute pain of left k nee (Primary Dx) Start: 12-31-2020 End: 01-01-2021 Emergency department patient visit Cici Fulton Work Phone: [facility] Comment on above: Chest pain, unspecif ied type (Primary Dx) Start: 09-11-2020 End: 09-11-2020 Emergency department patient visit Barry Chapman Work Phone: [facility] Comment on above: Nausea vomiting and diarrhea (Primary Dx) Start: 07-10-2020 End: 07-10-2020 Emergency department patient visit [facility] ED Comment on above: Abdominal pain, unsp ecified abdominal location (Primary Dx) Start: 07-05-2019 End: 07-06-2019 Emergency department patient visit Ross Noriega Work Phone: [facility] Comment on above: Nausea and vomiting, intractability of vomiting not specified, unspecified vomiting type (Primary Dx) Procedures Date Procedure Procedure Detail Performing Clinician Start: 12-15-2022 Radiologic examinati on knee 3 views Becca Mak MD Work Phone: Start: 04-01-2022 Ecg routine ecg w/le ast 12 lds w/i&r Cici Colon MD Work Phone: Start: 03-05-2022 Urine test visual color cmprsn meths Buddy BLUM-C Work Phone: Start: 03-05-2022 End: 03-05-2022 Smr prim src wet mount nfct agt Buddy BLUM-C Work Phone: Start: 09-21-2021 Ct angiography lower extremity Nam Jeffrey MD Start: 09-21-2021 BASIC METABOLIC PANE L W/ REFLEX TO MG FOR LOW K Nam Jeffrey MD Start: 09-21-2021 Gonadotropin chorion ic qualitative Nam Jeffrey MD Start: 01-01-2021 Ct thorax w/contrast material Melita Hernandes PA-C Work Phone: Start: 12-31-2020 Urinalysis microscopic only Melita Hernandes PA-C Work Phone: Start: 12-31-2020 Urnls dip stick/tabl et rgnt auto w/o microscopy Melita Hernandes PA-C Work Phone: Start: 12-31-2020 Ecg routine ecg w/le ast 12 lds w/i&r Melita Hernandes PA-[employer] Work Phone: Start: 12-31-2020 End: 12-31-2020 Comprehensive metabolic panel Melita Hernandes PA-[employer] Work Phone: Start: 12-31-2020 SPECIMEN REJECTION David Hernandes [employer] Work Phone: Start: 12-31-2020 Radiologic exam ches t single view [facility]ita [facility] Work Phone: Start: 12-31-2020 COVID-19, RAPID Melita dominguez[employer] Work Phone: Start: 07-10-2020 Ct abdomen & pelvis w/contrast material Cam Cannon Work Phone: Start: 07-10-2020 Assay of lipase Cam Cannon Work Phone: Start: 07-10-2020 Blood count complete auto&auto difrntl wbc Cam Cannon Work Phone: Start: 07-10-2020 Lactate [Moles/Vol] Brent Cannon Work Phone: Start: 07-10-2020 Urine test visual color cmprsn meths Cam Cannon Work Phone: Start: 07-10-2020 Urnls dip stick/tabl et rgnt auto w/o microscopy Cam Cannon Work Phone: Start: 07-05-2019 Urinalysis microscopic only Melita Hernandes Work Phone: Start: 07-05-2019 Urine test visual color cmprsn meths Melita Hernandes Work Phone: Start: 07-05-2019 Urnls dip stick/tabl et rgnt auto w/o microscopy Melita Hernandes Work Phone: Start: 07-05-2019 Assay of lipase Melita garces Work Phone: Start: 07-05-2019 Blood count complete automated Melita Hernandes Work Phone: Start: 07-05-2019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
[2023-08-21 15:09] LABS: Age Gdln ACOG Testing Note (.); IGP, rfx Aptima HPV ASCU Note (.)
== END 2023-08-18 19:46 | disposition home or self-care (01) ==
LOC: LAB 19:45
PROVIDERS: PCP Internal Medicine; Visit Provider Obstetrics & Gynecology
DX: Z01.419 Encounter for gynecological examination (general) (routine) without abnormal findings (principal)
CPT/HCPCS: G0145

== ENCOUNTER 2024-01-07 11:54 | Outpatient (OUT) | payer OTHER, SELFPAY ==
[2024-01-07 13:08] LABS: HCG Quantitative <1 mIU/mL; Thyroid Stimulating Hormone 1.878 uIU/mL (0.358-3.740)
[2024-01-07 13:13] LABS: Free T4 0.88 ng/dL (0.76-1.46)
[2024-01-08 08:13] LABS: FSH 9.2 mIU/mL (.); Luteinizing Hormone(LH) 24.1 mIU/mL (.)
[2024-01-13 19:08] LABS: DHEA, Serum 240 ng/dL (31-701)
== END 2024-01-07 11:55 | disposition home or self-care (01) ==
PROVIDERS: PCP Internal Medicine; Visit Provider Obstetrics & Gynecology
DX: E28.2 Polycystic ovarian syndrome (principal); N92.6 Irregular menstruation, unspecified
CPT/HCPCS: 36415; 82626; 82627; 83001; 83002; 83036; 84439; 84443; 84702

== ENCOUNTER 2024-02-01 16:38 | Outpatient (OUT) | payer OTHER, SELFPAY ==
--- OUTSIDE RECORDS SUMMARY | 2024-02-01 16:43 | XMS_ITS ---
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 Construction [employer] Name Role Phone Cici Fulton Primary Care Provider Unavailabl e CICI FULTON Primary Care Unavailable Cici Fulton Primary Care Provider CICI FULTON Primary Care Unavailable VON ALFARO Attending Unavailable Cici Fulton Primary Care Provider SABINE Hoffman, DR ROQUE Attending Unavailable SABINE ., DR ROQUE Consulting Unavailable SABINE ., DR ROQUE Primary Care Unavailable SABINE ., DR ROQUE Admitting Unavailable Cici Fulton Primary Care Provider Asaad, Imad Unavailable Cici Fulton Primary Care Provider JUDE REGALADO Attending Unavailable CICI FULTON Attending Unavailable CICI FULTON Referring Unavailable YADIRA WALTON Attending Unava ilable WILLAM MOODY Attending Unavailable WILLAM MOODY Referring Unavailable VIPIN HAMPTON Attending Unavailable CICI FULTON Primary Care Unavailable CICI FULTON Primary Care Unavailable BECCA MAK Attending Unavailable CICI FULTON Primary Care Unavailable CICI FULTON Primary Care Unavailable FRANCO JEFFREY Attending Unavailable ENDY SKELTON Attending Unavailable Allergies Allergy Classification Reported Allergen(s) Marco rgy Type Date of Onset Reaction(s) Facility atomoxetine (1 source) atomoxetine Drug Allergy [facility] medroxyPROGESTERone (1 source) medroxyPROGESTERone Drug Allergy 012 [facility] (11 sources) atomoxetine Drug Allergy 012 [facility] [place] (12 sources) medroxyPROGESTERone; Translations: [Depo-Provera] Drug Allergy 012 [place], [place] (1 source) atomoxetine Drug Allergy 016 [facility] Repository (3 sources) atomoxetine; Translations: [ATOMOXETINE] Drug Allergy 012 [facility] Repository (3 sources) medroxyPROGESTERone; Translations: [MEDROXYPROGESTERONE] Drug Allergy 012 HTN [facility] Repository (1 source) buPROPion; Translations: [BUPROPION] Drug Allergy 023 [facility] Repository Encounters Encounter Date Encounter Type Care Provider Facility Start: 10-22-2023 End: 10-22-2023 ambulatory ENDY SKELTON [facility] Start: 10-09-2023 End: 10-09-2023 ambulatory WILLAM MOODY Not Available Start: 10-08-2023 End: 10-09-2023 ambulatory YADIRA WALTON Not Available Start: 08-24-2023 End: 08-24-2023 ambulatory CICI FULTON Not Available Start: 08-18-2023 End: 08-18-2023 ambulatory JUDE REGALADO Not Available Start: 07-31-2023 End: 07-31-2023 Subsequent hospital visit by physician Irvin Singer [facility] Start: 07-21-2023 End: 07-21-2023 Emergency department patient visit CICI FULTON [facility] Start: 06-24-2023 End: 06-24-2023 ambulatory Imad Asaad Other [employer] Other Start: 06-24-2023 Telephone encounter Imad Asaad [facility] Start: 06-22-2023 End: 06-22-2023 ambulatory VIPIN HAMPTON Not Available Start: 06-01-2023 End: 06-01-2023 ambulatory Imad Asaad Other [employer] Other Start: 06-01-2023 Office outpatient ne w 45 minutes Imad Asaad [facility] Start: 05-10-2023 End: 05-10-2023 Emergency department patient visit [facility] Start: 03-06-2023 End: 03-06-2023 Emergency department patient visit [facility] Start: 03-06-2023 End: 03-06-2023 Emergency department patient visit Franco Jeffrey MD [facility] ED Comment on above: Back spasm (Primary Dx) Start: 12-15-2022 Emergency department patient visit [facility] Start: 12-15-2022 End: 12-15-2022 Emergency department patient visit Becca Mak MD Work Phone: [facility] ED Comment on above: Contusion of left kn ee, initial encounter (Primary Dx) Start: 09-02-2022 End: 09-02-[address] JUDE REGALADO . 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) Start: 04-01-2022 End: 04-01-2022 Subsequent hospital visit by physician Cici Fulton Work Phone: [facility] Start: 03-05-2022 End: 03-05-2022 Emergency department patient visit Cici Fulton Work Phone: [facility] ED Comment on above: STD exposure (Primar y Dx); Trichomonas infection Start: 09-21-2021 End: 09-21-2021 Emergency department patient visit Franco Jeffrey MD [facility] ED Comment on above: Left knee injury, se quela (Primary Dx) Start: 09-21-2021 End: 09-21-2021 Emergency department patient visit [facility] Start: 09-21-2021 End: 09-21-2021 Emergency department patient visit Cici Fulton Work Phone: [facility] ED Comment on above: Acute pain of left k nee (Primary Dx) Start: 12-31-2020 End: 01-01-2021 Emergency department patient visit Cici Fulton Work Phone: [facility] ED Comment on above: Chest pain, unspecif ied type (Primary Dx) Start: 09-11-2020 End: 09-11-2020 Emergency department patient visit Barry Chapman Work Phone: [facility] ED Comment on above: Nausea vomiting and diarrhea (Primary Dx) Start: 07-10-2020 End: 07-10-2020 Emergency department patient visit Cici Fulton [facility] ED Comment on above: Abdominal pain, unsp ecified abdominal location (Primary Dx) Start: 07-05-2019 End: 07-06-2019 Emergency department patient visit Ross Noriega Work Phone: [facility] ED Comment on above: Nausea and vomiting, intractability of vomiting not specified, unspecified vomiting type (Primary Dx) Medical Equipment Procedure Code Equipment Code Equipment Origin al Text Equipment Identifier Dates fluorescein ophthalmic strip 1 mg [id number] Start: 04-16-2022 End: 04-16-2022 Immunizations Immunization Date Immunization Notes Care Provider Madi howard 05-11-2014 influenza, injectabl e, quadrivalent, preservative free Imad Asaad Other [employer] Other Medications Current Medications Medication Drug Class(es) Dates Sig (Normalized) Sig (Original) Acetaminophen / HYDROcodone (2 sources) Opioid Agonist Start: 09-21-2021 hydrocodone-acetam inophen (NORCO) tablet 5-325 mg (STARTER PACK) Start: 09-21-2021 End: 09-21-2021 HYDROcodone-acetaminophen (N ORCO) 5-325 MG per tablet 1 tablet Blood Pressure Monitoring (BLOOD PRESSURE CUFF) MISC (12 sources) Start: 03-30-2015 Blood Pressure Monitoring (BLOOD PRESSURE CUFF) MISC Indications: Essential hypertension 1 kit by Does [...] (Therapy completed) take 1 tablet by rin every twenty-four hours Nortrel 7/7/7 0.5/0.75/1-35 MG-MCG [...] (TETRAVISC) 0.5 % ophthalmic solution 1 drop Payers Date Payer Category Payer Leland LUND [id number] 2023-Present [phone] [address] [place] [address] [id number] 2022 Unknown [id number] .[id number] 2022 Unknown 2022 2022 Unknown [id number] [id number] .[id number] 2021 Unknown GENERIC AUTO INS URANCE GENERIC [employer]O INSURANCE 2021-Present [address] [place] [address] [id number] .[id number] 2019 Unknown BCBS BCBS OUT OF STATE [id number] 2019-Present [address] [place] [address] [id number] .[id number] 2015 Unknown [facility] xxxxxxxxxxxx 2015-Present [phone] [address] [place] [address] xxxxxxxxxxxx [id number] .[id number] 2014 Unknown 1995 Unknown [id number] 2.16.840.1.761995.3.579.2.182 1995 Unknown [id number] 2.16.840.1.391926.3.579.2.175 1995 Unknown [id number] 2.16.840.1.408787.3.579.2.593 1995 Unknown [id number] 2.16.840.1.793736.3.579.2.125 9 1996 Unknown [id number] 2.16.840.1.454051.3.579.2.125 9 1996 Unknown [id number] 2.16.840.1.727661.3.579.2.125 9 1996 Unknown [id number] 2.16.840.1.198084.3.579.2.125 9 1996 Unknown [id number] 2.16.840.1.574224.3.579.2.125 9 1996 Unknown [id number] 2.16.840.1.490450.3.579.2.125 9 1996 Unknown [id number] 2.16.840.1.827421.3.579.2.125 9 1995 Unknown [id number] 2.16.840.1.207539.3.579.2.125 9 1996 Unknown [id number] 2.16.840.1.493586.3.579.2.125 9 1996 Unknown [id number] 2.16.840.1.083065.3.579.2.125 9 1996 Unknown [id number] 2.16.840.1.809435.3.579.2.173 1996 Unknown [id number] 2.16.840.1.237458.3.579.2.173 1995 Unknown [id number] 2.16.840.1.524440.3.579.2.173 1996 Unknown [id number] 2.16.840.1.904285.3.579.2.173 1959 Unknown [id number] [id number].3 .121537.315 Plan of Treatment Date Care Activity Detail Author Start: 04-10-2023 COVID-19 Vaccine () COVID-19 Vaccine () [facility] Start: 03-10-2023 Influenza vaccination B ON [facility] Start: 03-05-2023 Screening for Chlamy ivan trachomatis Chlamydia screen [facility] Start: 12-09-2022 COVID-19 Vaccine (3 - Booster for Pfizer series) COVID-19 Vaccine (3 - Booster for Pfizer series) [facility] Start: 09-21-2022 Creatinine measurement Creatinine mo [facility] Start: 09-21-2022 Potassium monitoring Potassium monit [facility] Start: 04-10-2022 Influenza vaccination Flu vaccine (# 1) [facility] Start: 12-31-2021 Creatinine measurement Creatinine mo [facility] Start: 12-31-2021 Potassium monitoring Potassium monit [facility] Start: 07-10-2021 Creatinine measurement Creatinine mo [place], [place] Start: 07-10-2021 Potassium monitoring Potassium monit [place], [place] Start: 04-10-2021 Influenza vaccination [facility] Start: 07-05-2020 Creatinine measurement Creatinine mo [place], [place] Start: 07-05-2020 Potassium monitoring Potassium monit [place], [place] Start: 04-10-2020 Influenza vaccination Flu vaccine (# 1) [place], [place] Start: 04-10-2019 Influenza vaccination Flu vaccine (# 1) [place], [place] Start: 2017 Cervical cancer screen Cervical canc er screen [place], [place] Start: 2017 Screening for malign ant neoplasm of cervix [facility] Start: 02-27-2017 DTaP/Tdap/Td vaccine (7 - Td or Tdap) DTaP/Tdap/Td vaccine (7 - Td or Tdap) [facility] Start: 10-28-2016 Creatinine monitoring Creatinine mon itoring [place], [place] Start: 10-28-2016 Potassium monitoring Potassium monit [place], [place] Start: 2015 DTaP/Tdap/Td vaccine (1 - Tdap) DTaP/Tdap/Td vaccine (1 - Tdap) [facility] Start: 2014 Hepatitis C screening Hepatitis C sc reen [facility] Start: 11-02-2013 Chlamydia screen Chlamydia screen [place], [place] Start: 11-02-2013 Screening for Chlamy ivan trachomatis Chlamydia screen [facility] Start: 2011 HIV screen HIV screen [place], [place] Start: 2011 HIV screening HIV screen [facility] Start: 2008 COVID-19 Vaccine (1) COVID-19 Vaccin e (1) [facility] [employer] Phone: Start: 2008 Depression Screen Depression Screen [facility] Start: 2007 DTaP/Tdap/Td vaccine (1 - Tdap) DTaP/Tdap/Td vaccine (1 - Tdap) [place], [place] Start: 2007 HPV vaccine (1 - 2-d ose series) HPV vaccine (1 - 2-dose series) [facility] Start: 2007 HPV vaccine (1 - Fem rafita 2-dose series) HPV vaccine (1 - Female 2-dose series) [place] Start: 2001 COVID-19 Vaccine (1) COVID-19 Vaccin e (1) [facility] Start: 1997 Varicella vaccine (1 of 2 - 2-dose childhood series) Varicella vaccine (1 of 2 - 2-dose childhood series) [facility] Start: 1996 COVID-19 Vaccine (#1) COVID-19 Vacci ne (#1) [facility] Start: 1996 Hepatitis C screening Hepatitis C sc reen [facility] End: 07-05-2019 Bacteria identified Cx Nom (U) Urine Culture Microbiology Routine Once for 1 Occurrences starting 07/05/2019 until 07/05/2019 [place] Comment on above: Once for 1 Occurrenc es starting 07/05/2019 until 07/05/2019 End: 03-05-2022 C.trachomatis N.gonorrhoeae [facility] Phone: Comment on above: Once for 1 Occurrenc es starting 03/05/2022 until 03/05/2022 End: 12-31-2020 Culture, Blood 1 Culture, Blood 1 Microbiology STAT One Time for 1 Occurrences starting 12/31/2020 until 12/31/2020 [employer] Phone: Comment on above: One Time for 1 Occur rences starting 12/31/2020 until 12/31/2020 Culture, Blood 1 [facility] Work Phone: End: 07-10-2020 Culture, Urine Culture, Urine Microbiology STAT One Time for 1 Occurrences starting 07/10/2020 until 07/10/2020 [employer] [place] Comment on above: One Time for 1 Occur rences starting 07/10/2020 until 07/10/2020 Culture, Urine [employer] [place] End: 03-05-2022 Culture, Urine [facility] Work Phone: Comment on above: Once for 1 Occurrenc es starting 03/05/2022 until 03/05/2022 End: 09-21-2021 XR KNEE LEFT (3 VIEWS) [employer] Phone: Comment on above: Once for 1 Occurrenc es starting 09/21/2021 until 09/21/2021 Problems Active Problems Problem Classification Problem Date Documented Date Episodic/Chronic Abdominal pain (1 source) Abdominal pain; Translations: [Abdominal pain, unspecified abdominal location] Episodic Aortic; peripheral; and visceral artery aneurysms (2 sources) Thoracic aortic ectasia; Translations: [Thoracic aortic ectasia] Onset: 10-22-2023 Chronic Attention-deficit conduct and disruptive behavior disorders (12 sources) Attention deficit hyperactivity disorder, predominantly inattentive type; Translations: [Other specified behavioral and emotional disorders with onset usually occurring in childhood and adolescence] Onset: 07-13-2012 07-13-2012 Chronic Cardiac and circulatory congenital anomalies (14 sources) Bicuspid aortic valve; Translations: [Congenital insufficiency of aortic valve] Onset: 05-05-2012 05-05-2012 Chronic Esophageal disorders (2 sources) Gastroesophageal reflux disease; Translations: [Gastro-esophageal reflux disease without esophagitis] Chronic Heart valve disorders (20 sources) Aortic valve stenosis; Translations: [Aortic valve regurgitation] Onset: 05-05-2012 05-05-2012 Chronic Inflammation; infection of eye (except [...] of left lower leg, sequela] Episodic Other non-traumatic joint disorders (1 source) Pain in left knee; Translations: [Pain in joint, lower leg] Episodic Superficial injury; contusion (1 source) Contusion of left knee; Translations: [Contusion of left knee, initial encounter] Episodic Past or Other Problems Problem Classification Problem Date Documented Da te Episodic/Chronic Gastrointestinal hemorrhage (2 sources) Rectal hemorrhage; Translations: [Rectal Bleeding] Onset: 07-21-2023 Episodic Immunizations and screening for infectious disease (5 sources) Exposure to sexually transmissible disorder; Translations: [Contact with and (suspected) exposure to infections with a predominantly sexual mode of transmission] Onset: 09-02-2022 Episodic Nonspecific chest pain (13 sources) Chest pain; Translations: [Chest pain, unspecified] Onset: 03-28-2014 03-28-2014 Episodic Other injuries and conditions due to external causes (1 source) Unspecified injury of left lower leg, sequela; Translations: [Unspecified injury of left lower leg, sequela] Onset: 05-10-2023 Episodic Other non-traumatic joint disorders (2 sources) Knee pain; Translations: [Knee Pain] Onset: 12-15-2022 Episodic Spondylosis; intervertebral disc disorders; other back problems (2 sources) Spasm of back muscles; Translations: [Muscle spasm of back] Onset: 03-06-2023 Episodic Procedures Date Procedure Procedure Detail Performing Clinician Start: 12-15-2022 Radiologic examinati on knee 3 views Becca Mak MD Work Phone: Start: 04-01-2022 Ecg routine ecg w/le ast 12 lds w/i&r Cici Colon MD Work Phone: Start: 03-05-2022 Urine test visual color cmprsn meths Buddy Whitt PA-C Work Phone: Start: 03-05-2022 End: 03-05-2022 Smr prim src wet mount nfct agt Buddy Whitt PA-C Work Phone: Start: 09-21-2021 Ct angiography lower extremity Franco Jeffrey MD Start: 09-21-2021 BASIC METABOLIC PANE L W/ REFLEX TO MG FOR LOW K Franco Jeffrey MD Start: 09-21-2021 Gonadotropin chorion ic qualitative Franco Jeffrey MD Start: 01-01-2021 Ct thorax w/contrast material Melita Cecilio PA-C Work Phone: Start: 12-31-2020 Urinalysis microscopic only Melita Cecilio PA-Jott Work Phone: Start: 12-31-2020 Urnls dip stick/tabl et rgnt auto w/o microscopy Melita [employer] PA-Jott Work Phone: Start: 12-31-2020 Ecg routine ecg w/le ast 12 lds w/i&r Melita Cecilio PA-Jott Work Phone: Start: 12-31-2020 End: 12-31-2020 Comprehensive metabolic panel Melita Cecilio PA-Jott Work Phone: Start: 12-31-2020 SPECIMEN REJECTION David lynsey Cecilio PA-Jott Work Phone: Start: 12-31-2020 Radiologic exam ches t single view Melita Cecilio PA-Jott Work Phone: Start: 12-31-2020 COVID-19, RAPID Melita garces PA-Jott Work Phone: Start: 07-10-2020 Ct abdomen & [...] metabo lic panel Melita Hernandes Work Phone: Results Test Name Value Interpretation Reference Range Facility 36on 01-09-2024 36 If you go into the letter I have completed a letter that can be faxed to her employer but I was not given the fax number so you may want to call her. [facility] Documentationon 01-09-2024 Documentation [id number] Urmila Jasmine 1995 F Date Provider Department Center 01/09/2024 ENDY [facility] PED Miriam Paulson No family history on file [facility] 36on 01-01-2024 36 Patient called in regard to needing a note for work. 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 Patient stated that when she is in the room with no AC she begins to sweat and shake & by the end of the day she is exhausted. Her work said they could switch her to another office with AC if she has a doctors note for that accomodation. Please advise. Pt stated she will slat pickler the note. [facility] Telephoneon 01-01-2024 Telephone [id number] Urmila Jasmine 1995 Date Provider Department Center 01/01/2024 MARGUERITE ENDY LYNNE LANETTE Paulson No family history on file Normal [facility] 37on 10-22-2023 37 Outpatient echo to be arranged Prior echo ??? S/P repair of discrete subaortic stenosis ??? Functionally bicuspid aortic valve with thickened aortic valve leaflets ??? Mild aortic valve stenosis PSImmHg and a mean gradient of 18mmHg ??? Moderate aortic valve insufficiency ??? The ascending aorta is moderate to severely dilated (slightly increased from the previous measurement) ??? Normal biventricular systolic function Normal [facility] Office Visiton 10-22-2023 Follow-up visit [id number] Urmila Jasmine 1995 Provider Department Center 10/22/2023 ENDY EVERETT MAGED LANETTE Paulson No family history on file Level of Service:[id number] [place] OFFICE/OUTPATIENT ESTABLISHED LOW MDM 20 MIN Reason for Visit and Comments: Follow-up [082082] - Yearly check up Normal [facility] XR KNEE LEFT (3 VIEWS)on XR KNEE [...] Ephraim Plascencia MD 05/10/23 Final result Normal [facility] XR KNEE LEFT (3 VIEWS)on Radiology Study observation (narrative) SARAH BAE [facility] [employer] Work Phone: XR KNEE LEFT (3 VIEWS) EXAMINATION: THREE [...] Gaetano Patel MD 12/15/22 Final result Normal [facility] No acute abnormality identified. [facility] EXAMINATION: THREE XRAY VIEWS OF THE LEFT KNEE 12/15/2022 5:46 pm COMPARISON: None. HISTORY: ORDERING SYSTEM PROVIDED HISTORY: pain TECHNOLOGIST PROVIDED HISTORY: pain FINDINGS: No stress or traumatic fractures are detected. No joint effusion is found. Periarticular soft tissues are unremarkable in appearance. [facility] Gaetano Patel MD - 12/15/2022 EXAMINATION: THREE XRAY VIEWS OF THE LEFT KNEE 12/15/2022 5:46 pm COMPARISON: None. HISTORY: ORDERING SYSTEM PROVIDED HISTORY: pain TECHNOLOGIST PROVIDED HISTORY: pain FINDINGS: No stress or traumatic fractures are detected. No joint effusion is found. Periarticular soft tissues are unremarkable in appearance. IMPRESSION: No acute abnormality identified. [facility] [employer] Phone: XR KNEE LEFT (3 VIEWS)Ordere d By: Gaetano Patel on 12-15-2022 [facility] [employer] Phone: CHLAMYDIA/GONOCOCCUS LIZBETH (SW AB/URINE/PAPon 09-04-2022 Chlamydia trachomatis, LIZBETH Negative Normal Negative [facility] Comment on above: Performed By: #### C T/NGNA #### [facility] [address] [address] [address] Alek Barnes Neisseria gonorrhoeae, LIZBETH Negative Normal Negative [facility] Comment on above: Performed By: #### C T/NGNA #### [facility] [address] [address] [address] Alek Barnes VAGINITIS/VAGINOSIS DNA PROB Alberto 09-04-2022 Vianey species Negative Normal Negative [facility] Comment on above: Performed By: #### V AGINT #### [facility] [address] [address] [address] Alek Barnes Gardnerella vaginalis Positive Abnormal Negative [facility] Comment on above: Performed By: #### V AGINT #### [facility] [address] [address] [address] Alek Barnes Trichomonas vaginalis Negative Normal Negative [facility] Comment on above: Performed By: #### V AGINT #### [facility] [address] [address] [address] Alek Barnes EKG 12 LeadOrdered By: Comfort Desir hmad on 04-01-2022 Atrial Rate 64 BPM [employer] Work Phone: P [place] 37 degrees [employer] Work Phone: P-R Interval 138 ms [employer] Work Phone: Q-T Interval 398 ms [employer] Work Phone: QRS Duration 96 ms [employer] Work Phone: QTc Calculation (Bazett) 410 ms [employer] Work Phone: R [place] 2 degrees [employer] Work Phone: T [place] 47 degrees [employer] Work Phone: Ventricular Rate 64 BPM [facility] Work Phone: [employer] Work Phone: EKG 12 Leadon 04-01-2022 Normal sinus rhythm Septal infarct (cited on or before 31-DEC-2020) Nonspecific ST and T wave abnormality Abnormal ECG When compared with ECG of 31-DEC-2020 21:45, Nonspecific T wave abnormality, worse in Inferior leads Confirmed by Comfort Licona MD ([id number]) on 04/01/2022 7:48:19 PM [facility] Comfort Licona MD - 04/01/2022 Normal sinus rhythm Septal infarct (cited on or before 31-DEC-2020) Nonspecific ST and T wave abnormality Abnormal ECG When compared with ECG of 31-DEC-2020 21:45, Nonspecific T wave abnormality, worse in Inferior leads Confirmed by Comfort Licona MD ([id number]) on 04/01/2022 7:48:19 PM [facility] Work Phone: Microscopic Urinalysison - [facility] Bacteria, UA 2+ Abnormal None [facility] Epithelial Cells UA 5 TO 10 [facility] Mucus, UA 3+ Abnormal None [facility] RBC, UA 0 TO 2 [facility] Trichomonas, UA PRESENCE NOTED Abnormal None [facility] WBC, UA 10 TO 20 [facility] No Panel Informationon 03-05 Interpretation and review of laboratory results Abnormal [facility] , Urineon 2 Beta HCG ( test) Ql (U) Negative NEGATIVE [facility] Comment on above: Specimens with hCG l evels near the threshold of the test (25 mIU/mL) may give a negative or indeterminate result. In such cases, another test should be performed with a new specimen in 48-72 hours. If early is suspected clinically in this setting, correlation with quantitative serum b-hCG level is suggested. [employer] has confirmed the use of plasma for this test. This has not been cleared or approved by the U.S. Food and Drug Administration. The FDA has determined that such clearance is not necessary. Urinalysis with Reflex to Cu ltureon 03-05-2022 Bilirubin Urine Negative NEGATIVE [facility] Color, UA Yellow Yellow [facility] Glucose, Ur Negative NEGATIVE [facility] Ketones Ql (U) Negative NEGATIVE [facility] Leukocyte esterase Test strip Ql (U) SMALL Abnormal NEGATIVE [facility] Nitrite, Urine Negative NEGATIVE [facility] pH, UA 6.0 5 - 9 [facility] Protein, UA Negative NEGATIVE [facility] Specific [place], UA 1.025 High 1.01 - 1.02 [facility] Turbidity UA Clear Clear [facility] Urine Hgb Negative NEGATIVE [facility] Urobilinogen, Urine Normal Normal [facility] Wet Prep, Genitalon 03-05-20 22 Direct Exam TRICHOMONAS Abnormal [facility] Direct Exam NO YEAST OBSERVED [facility] Direct Exam NO CLUE CELLS SEEN [facility] Specimen Description .[facility] Complete Blood Count with Au to Diffon 09-23-2021 Basophils (Bld) [#/Vol] 0.12 10*3/uL Normal 0.00-0.20 [facility] Lead Producer Comment on above: Performed By: #### C MP, CBCAD #### [facility] [address], [place] [id number] Basophils/100 WBC (Bld) 1.1 % Normal N [facility] Specialist Comment on above: Performed By: #### C MP, CBCAD #### [facility] [address], [place] [id number] Eosinophils (Bld) [#/Vol] 0.42 10*3/uL Normal 0.02-0.50 [facility] Lead Producer Comment on above: Performed By: #### C MP, CBCAD #### [facility] [address], [place] [id number] Eosinophils/100 WBC (Bld) 3.8 % Normal [facility] Lead Producer Comment on above: Performed By: #### C MP, CBCAD #### [facility] [address], [place] [id number] Erythrocyte distribution width (RBC) [Ratio] 14.1 % Normal 11.0-15.0 [facility] Lead Producer Comment on above: Performed By: #### C MP, CBCAD #### [facility] [address], [place] [id number] Hematocrit (Bld) [Volume fraction] 39.6 % Normal 35.0-47.0 [facility] Lead Producer Comment on above: Performed By: #### C MP, CBCAD #### [facility] [address], [place] [id number] Hemoglobin (Bld) [Mass/Vol] 12.7 g/dL Normal 11.6-15.5 [facility] Lead Producer Comment on above: Performed By: #### C MP, CBCAD #### [facility] [address], [place] [id number] Lymphocytes (Bld) [#/Vol] 2.4 10*3/uL Normal 0.9-3.9 [facility] Comment on above: Performed By: #### C MP, CBCAD #### [facility] [address], [place] [id number] Lymphocytes/100 WBC (Bld) 21.8 % Normal [facility] Comment on above: Performed By: #### C MP, CBCAD #### [facility] [address], [place] [id number] MCH (RBC) [Entitic mass] 25.9 pg Low 27.0-33.0 [facility] Comment on above: Performed By: #### C MP, CBCAD #### [facility] [address], [place] [id number] MCHC (RBC) [Mass/Vol] 32.1 g/dL Normal 32.0-36.0 [facility] Comment on above: Performed By: #### C MP, CBCAD #### [facility] [address], [place] [id number] MCV (RBC) [Entitic vol] 81 fL Normal 80-100 [facility] Comment on above: Performed By: #### C MP, CBCAD #### [facility] [address], [place] [id number] Monocytes (Bld) [#/Vol] 0.8 10*3/uL Normal 0.2-0.9 [facility] Comment on above: Performed By: #### C MP, CBCAD #### [facility] [address], [place] [id number] Monocytes/100 WBC (Bld) 7.0 % Normal [facility] Comment on above: Performed By: #### C MP, CBCAD #### [facility] [address], [place] [id number] Neutrophils (Bld) [#/Vol] 7.2 10*3/uL Normal 1.5-7.8 [facility] Specialist Comment on above: Performed By: #### C MP, CBCAD #### [facility] [address], [place] [id number] Neutrophils/100 WBC (Bld) 65.4 % Normal [facility] Comment on above: Performed By: #### C MP, CBCAD #### [facility] [address], [place] [id number] Platelet mean volume (Bld) [Entitic vol] 12.80 fL High 7.50-12.50 [facility] Comment on above: Performed By: #### C MP, CBCAD #### [facility] [address], [place] [id number] Platelets (Bld) [#/Vol] 217 10*3/uL Normal 140-400 [facility] Comment on above: Performed By: #### C MP, CBCAD #### [facility] [address], [place] [id number] RBC (Bld) [#/Vol] 4.91 10*6/uL Normal 3.90-5.20 [facility] Comment on above: Performed By: #### C MP, CBCAD #### [facility] [address], [place] [id number] RDW-SD 41.4 fL Normal 37.0-50.0 [facility] Comment on above: Performed By: #### C MP, CBCAD #### [facility] [address], [place] [id number] WBC (Bld) [#/Vol] 11.0 10*3/uL Normal 3.8-11.0 [facility] Comment on above: Performed By: #### C MP, CBCAD #### [facility] [address], [place] [id number] Comprehensive Metabolic Pane [facility] 09-23-2021 Albumin [Mass/Vol] 4.3 g/dL Normal 3.6-5.1 [facility] Comment on above: Performed By: #### C MP, CBCAD #### [facility] [address], [place] [id number] Albumin/Globulin [Mass ratio] 2.4 {ratio} Normal 1.0-2.5 [facility] Comment on above: Performed By: #### C MP, CBCAD #### [facility] [address], [place] [id number] ALP [Catalytic activity/Vol] 92 U/L Normal 35-119 [facility] Comment on above: Performed By: #### C MP, CBCAD #### [facility] [address], [place] [id number] ALT [Catalytic activity/Vol] 18 U/L Normal 6-33 [facility] Comment on above: Result Comment: 07/10 Female reference range changed. Performed By: #### C MP, CBCAD #### [facility] [address], [place] [id number] Anion gap [Moles/Vol] 17 mmol/L Normal 12-20 [facility] Comment on above: Result Comment: Effe ctive 08/15/2019 reference range changed. Performed By: #### C MP, CBCAD #### [facility] [address], [place] [id number] AST [Catalytic activity/Vol] 15 U/L Normal 9-34 [facility] Comment on above: Performed By: #### C MP, CBCAD #### [facility] [address], [place] [id number] BUN/CREA 15 Ratio Normal 6-22 [facility] Comment on above: Performed By: #### C MP, CBCAD #### [facility] [address], [place] [id number] Calcium [Mass/Vol] 9.6 mg/dL Normal 8.6-10.2 [facility] Comment on above: Performed By: #### C MP, CBCAD #### [facility] [address], [place] [id number] Chloride [Moles/Vol] 106 mmol/L Normal 98-107 [facility] Comment on above: Performed By: #### C MP, CBCAD #### [facility] [address], [place] [id number] CO2 [Moles/Vol] 23 mmol/L Normal 20-31 [facility] Comment on above: Performed By: #### C MP, CBCAD #### [facility] [address], [place] [id number] Creatinine [Mass/Vol] 1.0 mg/dL Normal 0.6-1.4 [facility] Specialist Comment on above: Performed By: #### C MP, CBCAD #### [facility] [address], [place] [id number] eGFRAA 83 mL/min/1.73m2 Normal >60 [facility] Specialist Comment on above: Performed By: #### C MP, CBCAD #### [facility] [address], [place] [id number] eGFRNAA 68 mL/min/1.73m2 Normal >60 [facility] Specialist Comment on above: Performed By: #### C MP, CBCAD #### [facility] [address], [place] [id number] Globulin (S) [Mass/Vol] 1.8 g/dL Low 1.9-3.7 [facility] Specialist Comment on above: Performed By: #### C MP, CBCAD #### [facility] [address], [place] [id number] Glucose [Mass/Vol] 96 mg/dL Normal 65-99 [facility] Comment on above: Result Comment: For FASTING Glucose --- ADA reference ranges: Normal 65-99 mg/dl Prediabetes 100-125 Diabetes >/= 126 Performed By: #### C MP, CBCAD #### [facility] [address], [place] [id number] Potassium [Moles/Vol] 4.2 mmol/L Normal 3.5-5.5 [facility] Lead Producer Comment on above: Performed By: #### C MP, CBCAD #### [facility] [address], [place] [id number] Protein [Mass/Vol] 6.1 g/dL Normal 6.1-8.1 [facility] Lead Producer Comment on above: Performed By: #### C MP, CBCAD #### [facility] [address], [place] [id number] Sodium [Moles/Vol] 142 mmol/L Normal 135-146 [facility] Lead Producer Comment on above: Performed By: #### C MP, CBCAD #### [facility] [address], [place] [id number] TBIL <0.3 Normal [facility] Lead Producer Comment on above: Performed By: #### C MP, CBCAD #### [facility] [address], [place] [id number] Urea nitrogen [Mass/Vol] 15 mg/dL Normal 7-25 [facility] Lead Producer Comment on above: Performed By: #### C MP, CBCAD #### [facility] [address], [place] [id number] Basic Metabolic Panel w/ Ref amy to MGon 09-21-2021 Anion gap [Moles/Vol] 13 mmol/L 9 - 17 mmol/L [employer] Calcium [Mass/Vol] 9.0 mg/dL 8.6 - 10. 4 mg/dL [facility] Chloride [Moles/Vol] 105 mmol/L 98 - 10 7 mmol/L [facility] CO2 [Moles/Vol] 21 mmol/L 20 - 31 mmol/L [facility] Creatinine [Mass/Vol] 0.97 mg/dL High 0.50 - 0.90 mg/dL [facility] GFR >60 >60 mL/min [employer] GFR Non- >60 >60 mL/min [facility] Glucose [Mass/Vol] 109 mg/dL High 70 - 99 mg/dL [facility] Interpretation and review of laboratory results Abnormal [facility] Potassium [Moles/Vol] 3.9 mmol/L 3.7 - 5.3 mmol/L [facility] Sodium [Moles/Vol] 139 mmol/L 135 - 144 mmol/L [facility] [employer] Urea nitrogen (BldV) [Mass/Vol] 15 mg/dL 6 - 20 mg/dL [facility] Urea nitrogen/Creatinine (Bld) [Mass ratio] 15 [facility] CTA LOWER EXTREMITY LEFT W W O CONTRASTon 09-21-2021 Radiology Study observation (narrative) Lola valverde Work Phone: *Unremarkable appearance of the vasculature with widely patent femoral artery. *Left knee soft tissue swelling as described with mild suprapatellar joint effusion. MHPN RIS CONSOLIDATED EXAMINATION: CTA OF THE LEFT [...] trifurcation with patent arteries into the foot. [facility] Jhonatan Solano MD - 09/21/2021 EXAMINATION: CTA OF THE [...] as described with mild suprapatellar joint effusion. [employer] Work Phone: CTA LOWER EXTREMITY LEFT W W O CONTRASTOrdered By: Jhonatan Solano on 09-21-2021 [employer] Phone: HCG Qualitative, Serumon hCG Qual Negative NEGATIVE [facility] Comment on above: Specimens with hCG l evels near the threshold of the test (25 mIU/mL) may give a negative or indeterminate result. In such cases, another test should be performed with a new specimen in 48-72 hours. If early is suspected clinically in this setting, correlation with quantitative serum b-hCG level is suggested. [employer] has confirmed the use of plasma for this test. This has not been cleared or approved by the U.S. Food and Drug Administration. The FDA has determined that such clearance is not necessary. Laboratory - Chemistry and C hemistry - challengeon 09-21-2021 GFR/1.73 sq M.predicted MDRD (S/P/Bld) [Vol rate/Area] [facility] Comment on above: Average GFR for 20-2 9 years old: 116 mL/min/1.73sq m Chronic Kidney Disease: <60 mL/min/1.73sq m Kidney failure: <15 mL/min/1.73sq m eGFR calculated using average adult body mass. Additional eGFR calculator available at: http://www.Docphin/multiple_crcl_2012.htm Stage 1: Some kidney damage normal GFR Stage 2: Mild kidney damage GFR 60-89 Stage 3: Moderate kidney damage GFR 30-59 Stage 4: Severe kidney damage GFR 15-29 Stage 5: Severe kidney damage GFR <15 ESRD - chronic treatment by dialysis or transplant No Panel Informationon 09-21 [facility] XR KNEE LEFT (3 VIEWS)on XR KNEE [...] Cici Valentino DO 09/21/21 Final result Normal [facility] CT CHEST PULMONARY EMBOLISM W CONTRASTOrdered By: [...] of the finding is unclear.. Fatty liver. [employer] Work Phone: EXAMINATION: CTA OF THE CHEST 01/01/2021 [...] No acute bone or soft tissue abnormality. [employer] Work Phone: Jalen, [facility] Incoming Radiant Results From [employer] - 01/01/2021 12:32 AM EDT EXAMINATION: CTA [...] of the finding is unclear.. Fatty liver. [employer] Phone: [employer] Phone: Brain Natriuretic PeptideOrd ered By: Melita Hernandes on 12-31-2020 BNP Interpretation Pro-BNP Reference Range: [employer] Phone: Comment on above: Rule Out: <300 [place] Zone: Age <50 300-450 Age 50-75 300-900 Age >75 300-1800 Usually represents mild to moderate HF but other cardiopulmonary causes cannot be ruled out. Rule In: Age <50 >450 Age 50-75 >900 Age >75 >1800 Natriuretic peptide B (Bld) [Mass/Vol] 76 pg/mL <300 [employer] Phone: Comment on above: Pro-BNP results jackson ot be compared to BNP results. CBC Auto DifferentialOrdered By: Melita Hernandes on 12-31-2020 [employer] # 0.36 [email or web address] Work Phone: Absolute Immature Granulocyte 0.07 [employer] Phone: Absolute Lymph # 2.59 FANCRU [facility] Work Phone: Absolute Toole # 1.05 [facility] Work Phone: Basophils (Bld) [#/Vol] 0.09 10*3/uL [employer] Work Phone: Basophils/100 WBC (Bld) 1 % 0 - 2 % M [facility] Work Phone: Differential Type NOT REPORTED [employer] Phone: Eosinophils/100 WBC (Bld) 2 % 1 - 4 % [employer] Phone: Hematocrit (Bld) [Volume fraction] 42.7 % 36.3 - 47.1 % [employer] Phone: Hemoglobin.gastrointest inal spec 1 Ql (Stl) 14.1 g/dL 11.9 - 15.1 g/dL [employer] Phone: Immature granulocytes/100 WBC (Bld) 0 % 0 [employer] Phone: Lymphocytes/100 WBC (Bld) 15 % Low 24 - 43 % [employer] Phone: MCH (RBC) [Entitic mass] 26.5 pg 25.2 - 33.5 pg [employer] Phone: MCHC (RBC) [Mass/Vol] 33.0 g/dL 28.4 - 34.8 g/dL [employer] Phone: MCV (RBC) [Entitic vol] 80.3 fL Low 82.6 - 102.9 fL [employer] Phone: Monocytes/100 WBC (Bld) 6 % 3 - 12 % M [employer] Phone: NRBC Automated 0.0 0.0 per 100 WBC [employer] Phone: Platelet distribution width (Bld) [Ratio] 12.5 % 11.8 - 14.4 % [employer] Phone: Platelet Estimate NOT REPORTED [employer] Phone: Platelet mean volume (Bld) [Entitic vol] 11.3 fL 8.1 - 13.5 fL [employer] Phone: Platelets (Bld) [#/Vol] 273 10*3/uL [employer] Phone: RBC (Bld) [#/Vol] 5.32 10*6/uL High 3.95 - 5.1 1 m/uL [employer] Phone: RBC (Bld) [#/Vol] NOT REPORTED [employer] Phone: Segmented neutrophils/100 WBC (Bld) 76 % High 36 - 65 % [employer] Work Phone: Segs [employer] 12.63 High [facility] Work Phone: WBC (Bld) [#/Vol] 16.8 10*3/uL High [employer] Work Phone: WBC (Bld) [#/Vol] NOT REPORTED [employer] Phone: COVID-19, RapidOrdered By: Ruth Hernandes on 12-31-2020 SARS-CoV-2 (COVID-19) RNA LIZBETH+probe Ql (Unsp spec) Not detected Not Detected [employer] Phone: Comment on above: Rapid NAAT: The [...] management decisions. Fact sheet for Healthcare Providers: https://www.T[place]in.gov/media/920242/download Fact sheet for Patients: https://www.fda.gov/media/506351/download Methodology: Isothermal Nucleic Acid Amplification Specimen Description .NASOPHARYNGEAL SWAB [employer] Phone: [employer] Phone: Comprehensive Metabolic Pane lOrdered By: Mleita Hernandes on 12-31-2020 Albumin [Mass/Vol] 4.1 g/dL 3.5 - 5.2 g/dL [employer] Phone: Albumin/Globulin [Mass ratio] 1.4 {ratio} [employer] Phone: ALP (Bld) [Catalytic activity/Vol] 100 U/L 35 - 104 U/L [employer] Phone: ALT [Catalytic activity/Vol] 32 U/L 5 - 33 U/L [employer] Phone: Anion gap [Moles/Vol] 12 mmol/L 9 - 17 mmol/L [employer] Phone: AST [Catalytic activity/Vol] 40 U/L High <32 [employer] Phone: Bilirubin [Mass/Vol] 0.22 mg/dL Low 0.3 - 1 .2 mg/dL [employer] Phone: Calcium [Mass/Vol] 9.4 mg/dL 8.6 - 10. 4 mg/dL [employer] Phone: Chloride [Moles/Vol] 101 mmol/L 98 - 10 7 mmol/L [employer] Phone: CO2 [Moles/Vol] 23 mmol/L 20 - 31 mmol/L [employer] Phone: Creatinine [Mass/Vol] 0.86 mg/dL 0.50 - 0.90 mg/dL [employer] Phone: Free PSA/Total PSA [Mass fraction] 7.0 g/dL 6.4 - 8.3 g/dL [employer] Phone: GFR >60 >60 mL/min [employer] Phone: GFR Non- >60 >60 mL/min [employer] Phone: Glucose [Mass/Vol] 105 mg/dL High 70 - 99 mg/dL [employer] Phone: Potassium [Moles/Vol] 5.5 mmol/L High 3.7 - 5.3 mmol/L [employer] Phone: Sodium [Moles/Vol] 136 mmol/L 135 - 144 mmol/L [employer] Phone: Urea nitrogen (BldV) [Mass/Vol] 15 mg/dL 6 - 20 mg/dL [employer] Phone: Urea nitrogen/Creatinine (Bld) [Mass ratio] 17 [employer] Phone: D-dimer, quantitativeOrdered By: Melita Hernandes on 12-31-2020 D-Dimer, Quant 0.48 [employer] Phone: Comment on above: When combined with [...] more prevalent in patients with distal DVT. EKG 12 LeadOrdered By: Melita Hernandes on 12-31-2020 Atrial Rate 88 BPM [employer] Phone: P [place] 32 degrees [employer] Phone: P-R Interval 142 ms [employer] Phone: Q-T Interval 348 ms [employer] Phone: QRS Duration 88 ms [employer] Phone: QTc Calculation (Bazett) 421 ms [employer] Phone: R [place] 3 degrees [employer] Phone: T [place] 107 degrees [employer] Phone: Ventricular Rate 88 BPM [employer] Phone: Normal sinus rhythm Septal infarct (cited on or before 31-DEC-2020) T wave abnormality, consider lateral ischemia Abnormal ECG When compared with ECG of 11-APR-2014 13:45, No significant change was found Confirmed by DENIS MORRIS ([id number]) on 12/31/2020 11:48:53 PM [employer] Phone: Jalen, pn Incoming Ekg Results From [employer] - 12/31/2020 11:48 PM EDT Normal sinus rhythm Septal infarct (cited on or before 31-DEC-2020) T wave abnormality, consider lateral ischemia Abnormal ECG When compared with ECG of 11-APR-2014 13:45, No significant change was found Confirmed by DENIS MORRIS ([id number]) on 12/31/2020 11:48:53 PM [employer] Phone: [facility] [employer] Work Phone: Laboratory - Chemistry and C hemistry - challengeOrdered By: Melita Cecilio on 12-31-2020 GFR/1.73 sq M.predicted MDRD (S/P/Bld) [Vol rate/Area] [facility] Work Phone: Comment on above: Average GFR for 20-2 9 years old: 116 mL/min/1.73sq m Chronic Kidney Disease: <60 mL/min/1.73sq m Kidney failure: <15 mL/min/1.73sq m eGFR calculated using average adult body mass. Additional eGFR calculator available at: http://www.Docphin/multiple_crcl_2011.htm Stage 1: Some kidney damage normal GFR Stage 2: Mild kidney damage GFR 60-89 Stage 3: Moderate kidney damage GFR 30-59 Stage 4: Severe kidney damage GFR 15-29 Stage 5: Severe kidney damage GFR <15 ESRD - chronic treatment by dialysis or transplant Microscopic UrinalysisOrdere d By: Melita Cecilio on 12-31-2020 - [employer] Work Phone: Amorphous, UA NOT REPORTED None [facility] Work Phone: Bacteria, UA TRACE Abnormal None [facility] [employer] Work Phone: Casts UA NOT REPORTED /LPF [facility] [employer] Work Phone: Crystals, UA NOT REPORTED None /HPF [facility] Work Phone: Epithelial Cells UA 0 TO 2 [facility] [employer] Work Phone: Mucus, UA NOT REPORTED None [facility] [employer] Work Phone: Other Observations UA NOT REPORTED NOT REQ. M [facility] [employer] Work Phone: RBC, UA 0 TO 2 [facility] [employer] Work Phone: Renal Epithelial, UA NOT REPORTED 0 /HPF [facility] Work Phone: Trichomonas, UA NOT REPORTED None [employer] Work Phone: WBC, UA 0 TO 2 [employer] Phone: Yeast, UA NOT REPORTED None [employer] Phone: No Panel InformationOrdered By: Melita Hernandes on 12-31-2020 Interpretation and review of laboratory results Abnormal [employer] Phone: Interpretation and review of laboratory results Abnormal [employer] Phone: [employer] Phone: [employer] Phone: SPECIMEN REJECTIONOrdered By : Melita Hernandes on 12-31-2020 - NOT REPORTED [employer] Phone: Ordered Test CDP [employer] Phone: Reason for Rejection Unable to perform testing: Specimen clotted. [employer] Work Phone: Specimen source Nom (Unsp spec) .BLOOD [employer] Phone: TroponinOrdered By: Melita maharaj on 12-31-2020 Troponin Interp NOT REPORTED [employer] Work Phone: Troponin T NOT REPORTED <0.03 ng/mL [facility] [employer] Work Phone: Troponin, High Sensitivity <6 0 - 14 ng/L [employer] Phone: Comment on above: High Sensitivity Troponin values cannot be compared with other Troponin methodologies. Patients with high levels of Biotin oral intake (i.e >5mg/day) may have falsely decreased Troponin levels. Samples collected within 8 hours of biotin intake may require additional information for diagnosis. Urinalysis Reflex to Culture Ordered By: Melita Hernandes on 12-31-2020 Bilirubin Urine Negative NEGATIVE [facility] Work Phone: Color, UA YELLOW YELLOW [employer] Phone: Glucose, Ur Negative NEGATIVE [employer] Work Phone: Ketones Ql (U) Negative NEGATIVE [employer] Work Phone: Leukocyte esterase Test strip Ql (U) Negative NEGATIVE [facility] Work Phone: Nitrite, Urine Negative NEGATIVE [employer] Work Phone: pH, UA 6.5 [facility] [employer] Work Phone: Protein, UA Negative NEGATIVE [facility] Work Phone: Specific [place], UA 1.025 High [facility] [employer] Work Phone: Turbidity UA CLEAR CLEAR [facility] Work Phone: Urinalysis Comments NOT REPORTED [facility] [employer] Work Phone: Urine Hgb Negative NEGATIVE [facility] Work Phone: Urobilinogen, Urine Normal Normal [facility] [employer] Work Phone: XR CHEST PORTABLEOrdered By: Melita Hernandes on 12-31-2020 Clear lungs. Cardiomegaly. No acute cardiopulmonary abnormality. [employer] Work Phone: EXAMINATION: ONE XRAY VIEW OF THE [...] normal limits. No significant thoracic osseous abnormality. [employer] Work Phone: Jalen, [employer] Incoming Radiant Results From [employer] - 12/31/2020 10:14 PM EDT EXAMINATION: ONE [...] Clear lungs. Cardiomegaly. No acute cardiopulmonary abnormality. [employer] Phone: [employer] Phone: hCG, quantitative, Ordered By: Melita Hernandes on 12-31-2020 hCG Quant <1 <5 IU/L [facility] Phone: Comment on above: Non-preg premeno <=5 Postmeno <=8 Male <=3 If HCG results do not concur with clinical observations, additional testing to confirm results is recommended. Elevated results not associated with may be found in patients with other diseases such as tumors of the germ cells (testis, ovaries, etc.), bladder, pancreas, stomach, lungs, and liver. CBC Auto Differentialon 12-0 Basophils (Bld) [#/Vol] 0.08 10*3/uL [place] Basophils/100 WBC (Bld) 1 % 0 - 2 % M [place], [place] Differential Type NOT REPORTED [place] Eosinophils (Bld) [#/Vol] 0.42 10*3/uL [place] Eosinophils/100 WBC (Bld) 5 % High 1 - 4 % [place] Erythrocyte distribution width (RBC) [Ratio] 12.8 % 11.8 - 14.4 % [place] Hematocrit (Bld) [Volume fraction] 40.6 % 36.3 - 47.1 % [place] Hemoglobin (Bld) [Mass/Vol] 13.3 g/dL 11.9 - 15.1 g/dL [place] Immature granulocytes (Bld) [#/Vol] 0 % 0 [place] Immature granulocytes (Bld) [#/Vol] 10*3/uL [place] Lymphocytes (Bld) [#/Vol] 1.93 10*3/uL [place] Lymphocytes/100 WBC (Bld) 23 % Low 24 - 43 % [place] MCH (RBC) [Entitic mass] 26.2 pg 25.2 - 33.5 pg [place] MCHC (RBC) [Mass/Vol] 32.8 g/dL 28.4 - 34.8 g/dL [place] MCV (RBC) [Entitic vol] 80.1 fL Low 82.6 - 102.9 fL [place] Monocytes (Bld) [#/Vol] 0.58 10*3/uL [place] Monocytes/100 WBC (Bld) 7 % 3 - 12 % M [place] Platelet mean volume (Bld) [Entitic vol] 11.2 fL 8.1 - 13.5 fL [place] Platelets (Bld) [#/Vol] 215 10*3/uL [place] Platelets (Bld) [#/Vol] NOT REPORTED [place] RBC (Bld) [#/Vol] 5.07 10*6/uL 3.95 - 5.1 1 m/uL [place] RBC morphology finding Nom (Bld) NOT REPORTED [place] Segmented neutrophils/100 WBC (Bld) 64 % 36 - 65 % [place] Segs Absolute 5.31 [place] WBC (Bld) [#/Vol] 8.3 10*3/uL [place] WBC (Bld) [#/Vol] 0.0 10*3/uL 0.0 per 10 0 WBC [place] WBC Morphology NOT REPORTED [place], [place] CT ABDOMEN PELVIS W IV CONTR AST [...] Bones/Soft Tissues: The osseous structures are unremarkable. [place] 1. No acute abnormality. [place] Jalen, Mhpn Incoming Radiant Results From [employer] - 07/10/2020 7:59 PM EST EXAMINATION: CT [...] are unremarkable. IMPRESSION: 1. No acute abnormality. [place] Comprehensive Metabolic Pane l w/ Reflex to MGon 07-10-2020 Albumin [Mass/Vol] 4.1 g/dL 3.5 - 5.2 g/dL [place] Albumin/Globulin [Mass ratio] 1.6 {ratio} [place] ALP [Catalytic activity/Vol] 83 U/L 35 - 104 U/L [place] ALT [Catalytic activity/Vol] 68 U/L High 5 - 33 U/L [place] Anion gap [Moles/Vol] 9 mmol/L 9 - 17 mmol/L [place] AST [Catalytic activity/Vol] 40 U/L High <32 [place] Bilirubin Ql (U) 0.27 mg/dL Low 0.3 - 1.2 mg/dL [place] Bun/Cre Ratio 20 [place] Calcium [Mass/Vol] 8.9 mg/dL 8.6 - 10. 4 mg/dL [place] Chloride [Moles/Vol] 101 mmol/L 98 - 10 7 mmol/L [place] CO2 [Moles/Vol] 24 mmol/L 20 - 31 mmol/L [place] Creatinine [Mass/Vol] 0.91 mg/dL High 0.5 - 0.9 mg/dL [place] GFR >60 >60 mL/min [place] GFR Non- >60 >60 mL/min [place] Glucose [Mass/Vol] 107 mg/dL High 70 - 99 mg/dL [place] Potassium [Moles/Vol] 4.2 mmol/L 3.7 - 5.3 mmol/L [place] Protein [Mass/Vol] 6.6 g/dL 6.4 - 8.3 g/dL [place] Sodium [Moles/Vol] 134 mmol/L Low 135 - 144 mmol/L [place] Urea nitrogen [Mass/Vol] 18 mg/dL 6 - 20 mg/dL [place] Lactic Acidon 07-10-2020 Lactate [Moles/Vol] 0.9 mmol/L 0.5 - 2. 2 mmol/L [place] Lipaseon 07-10-2020 Lipase [Catalytic activity/Vol] 12 U/L Low 13 - 60 U/L [place] Metabolic Panelon 07-10-2020 GFR/1.73 sq M predicted among non-blacks MDRD (S/P/Bld) [Vol rate/Area] [place] Comment on above: Average GFR for 20-2 9 years old: 116 mL/min/1.73sq m Chronic Kidney Disease: <60 mL/min/1.73sq m Kidney failure: <15 mL/min/1.73sq m eGFR calculated using average adult body mass. Additional eGFR calculator available at: http://www.Docphin/multiple_crcl_2012.htm Stage 1: Some kidney damage normal GFR Stage 2: Mild kidney damage GFR 60-89 Stage 3: Moderate kidney damage GFR 30-59 Stage 4: Severe kidney damage GFR 15-29 Stage 5: Severe kidney damage GFR <15 ESRD - chronic treatment by dialysis or transplant Otheron 07-10-2020 Interpretation and review of laboratory results Abnormal [place], [place] , Urineon 0 Beta HCG ( test) Ql (U) Negative NEGATIVE [place] Comment on above: Specimens with hCG l evels near the threshold of the test (25 mIU/mL) may give a negative or indeterminate result. In such cases, another test should be performed with a new specimen in 48-72 hours. If early is suspected clinically in this setting, correlation with quantitative serum b-hCG level is suggested. [employer] has confirmed the use of plasma for this test. This has not been cleared or approved by the U.S. Food and Drug Administration. The FDA has determined that such clearance is not necessary. Urinalysis, reflex to micros copicon 07-10-2020 Bilirubin Urine Negative NEGATIVE [place] Color, UA YELLOW YELLOW [place] Glucose, Ur Negative NEGATIVE [place] Ketones Ql (U) Negative NEGATIVE [place] Leukocyte esterase Test strip Ql (U) Negative NEGATIVE [place] Nitrite, Urine Negative NEGATIVE [place] pH, UA 5.5 [place] Protein (U) [Mass/Vol] Negative NEGATIVE [place], [place] Specific [place], UA >1.030 High [place] Turbidity UA CLEAR CLEAR [place], [place] Urinalysis Comments NOT REPORTED [place], [place] Urine Hgb Negative NEGATIVE [place] Urobilinogen, Urine Normal Normal [place] CBCon 07-05-2019 Erythrocyte distribution width (RBC) [Ratio] 12.5 % 11.8 - 14.4 % [place] Hematocrit (Bld) [Volume fraction] 45.1 % 36.3 - 47.1 % [place] Hemoglobin (Bld) [Mass/Vol] 15.0 g/dL 11.9 - 15.1 g/dL [place] MCH (RBC) [Entitic mass] 27.0 pg 25.2 - 33.5 pg [place] MCHC (RBC) [Mass/Vol] 33.3 g/dL 28.4 - 34.8 g/dL [place] MCV (RBC) [Entitic vol] 81.1 fL Low 82.6 - 102.9 fL [place] Platelet mean volume (Bld) [Entitic vol] 11.1 fL 8.1 - 13.5 fL [place] Platelets (Bld) [#/Vol] 229 10*3/uL [place] RBC (Bld) [#/Vol] 5.56 10*6/uL High 3.95 - 5.1 1 m/uL [place] WBC (Bld) [#/Vol] 0.0 10*3/uL 0.0 per 10 0 WBC [place] WBC (Bld) [#/Vol] 14.8 10*3/uL [place] Comprehensive Metabolic Pane brynn 07-05-2019 Albumin [Mass/Vol] 4.4 g/dL 3.5 - 5.2 g/dL [place] Albumin/Globulin [Mass ratio] 1.6 {ratio} [place] ALP [Catalytic activity/Vol] 101 U/L 35 - 104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 [employer] Relationship Specialty Start Date End Date Cici Fulton PCP - General 03/28/15 [employer] Relationship Specialty Start Date End Date Cici Fulton PCP - General 03/28/15 [employer] Relationship Specialty Start Date End Date Cici Fulton PCP - General 03/28/15 [employer] Relationship Specialty Start Date End Date Cici Fulton PCP - General 03/28/15 [employer] Relationship Specialty Start Date End Date Cici Fulton PCP - General 03/28/15 [employer] Relationship Specialty Start Date End Date Cici Fulton PCP - General 03/28/15 INFORMATION SOURCE (unrecogn ized section and content) DATE CREATED AUTHOR 09/21/2021 [facility] DATE CREATED AUTHOR AUTHOR'S ORGANIZ ATION 09/24/2021 [facility] dical Specialist DATE CREATED AUTHOR AUTHOR'S ORGANIZ ATION 04/17/2022 [facility] DATE CREATED AUTHOR AUTHOR'S ORGANIZ ATION 12/17/2022 [facility] DATE CREATED AUTHOR AUTHOR'S ORGANIZ ATION 10/12/2023 [facility] dical Specialists EPIC DATE CREATED AUTHOR AUTHOR'S ORGANIZ ATION 11/05/2023 [facility] DATE CREATED AUTHOR AUTHOR'S ORGANIZ ATION 01/09/2024 [facility] Ordered Prescriptions (unrec ognized section and content) [...] BE BASED ON THE PRIMARY CLINICAL RECORDS. [employer] [facility]. provides no warranty or guarantee of the accuracy or completeness of information in this document.
--- NOTE | 2024-02-01 17:21 | US_ITS ---
[address] [address] Patient Name: SEEMA JASMINE MRN: [id number] date: 1995 Sex: F Assigned Patient Location: Current Patient Location: Accession/Order Number: [id number] Exam Date: 02/01/2024 17:30 Report Date: 02/02/2024 07:06 At the request of: JUDE REGALADO Procedure: US pelvis w/ transvaginal EXAMINATION: US pelvis w/ transvaginal HISTORY: PCOS E28.2 COMPARISON: 07/19/2020 FINDINGS: Findings transabdominal and transvaginal images The uterus is normal in size, contour and echotexture measuring 9.2 x 4.1 x 4.8 cm, anteverted, retroflexed. The endometrium measures 7.4 mm, normal. Areas of anechoic echogenicity cervix, nabothian cysts. The right ovary measures 2.9 x 1.9 x 2.4 cm. Normal color and Doppler flow. Normal subcentimeter follicles. The left ovary measures 3.0 x 2.1 x 2.7 cm. Normal color and Doppler flow. Normal subcentimeter follicles US/US pelvis w/ transvaginal IMPRESSION: Unremarkable exam Electronically authenticated by: VICTOR MANUEL MCGOWAN Date: 02/02/2024 07:06
== END 2024-02-01 16:39 | disposition home or self-care (01) ==
LOC: US 16:39
PROVIDERS: PCP Internal Medicine; Visit Provider Obstetrics & Gynecology
DX: E28.2 Polycystic ovarian syndrome (principal)
CPT/HCPCS: 76830; 76856

== ENCOUNTER 2025-01-16 09:28 | Outpatient (RCR) | payer OTHER, SELFPAY | END 2025-02-07 09:49 | disposition home or self-care (01) | LOC: LAB 09:28 | PROVIDERS: PCP Internal Medicine; Visit Provider Obstetrics & Gynecology | DX: Z51.81 Encounter for therapeutic drug level monitoring (principal); Z32.01 Encounter for pregnancy test, result positive | CPT/HCPCS: 36415; 84702 ==

== ENCOUNTER 2025-02-11 09:29 | Outpatient (RCR) | payer OTHER, SELFPAY ==
--- OUTSIDE RECORDS SUMMARY | 2025-02-11 09:33 | XMS_ITS | CCD ---
Author Organization [facility] Care Team Providers Care Regional Director Of Finance Name Role Phone Cici Fulton Primary Care Provider Unavailabl e CICI FULTON Primary Care Unavailable Cici Fulton Primary Care Provider Cici Fulton Primary Care Provider ALVARO ., DR ROQUE Attending Unavailable ALVARO ., DR ROQUE Consulting Unavailable ALVARO ., DR ROQUE Primary Care Unavailable ALVARO ., DR ROQUE Admitting Unavailable Cici Fulton Primary Care Provider Asaad, Imad Unavailable Cici Fulton Primary Care Provider Cici Fulton MD Primary Care Provider MARYANN MONTALVO Referring Unavailable CICI FULTON Primary Care Unavailable ENDY SKELTON Consulting Unavailable GALINA QUIROGA Admitting Unavailable GALINA QUIROGA Attending Unavailable Maryann Montalvo Attending Unavailable Maryann Montalvo Admitting Unavailable Cici Fulton Primary Vladimir Unavailable Cici Fulton MD Primary Care Provider Parag Miller Unavailable [phone] Faby WILSON, Renetta Unavailable [phone] Faby WILSON, Renetta Unavailable [phone] Cory JAY, Yadira Saha Unavailable Anderson [facility], Sumeet Unavailable [phone] Costa CARREON, Endy Desir Unavailable CICI FULTON Attending Unavailable CICI FULTON Referring Unavailable SUSIE ALANIZ Attending Unavailable CICI FULTON Referring Unavailable PB JOHN Attending Unavailable PB JOHN Attending Unavailable SUSIE ALANIZ Attending Unavailable CICI FULTON Referring Unavailable SUMEET BARRON Attending Unavailable SUSIE ALANIZ Referring Unavailable CICI FULTON Referring Unavailable YADIRA SPENCER Attending Unavailable KIRSTIN, CICI Tariq Referring Unavailable YADIRA SPENCER Attending Unavailable CHRISTY GIMENEZ Attending Unavailable CHRISTY GIMENEZ Referring Unavailable MALGORZATA MCCOLLUM Attending Unavailable CICI FULTON Primary Care Unavailable HEAVENLY SLOAN Q Attending Unavailable CICI FULTON Primary Care Unavailable APRIL FARRIS Attending Unavailable SKELTON, ENDY Attending Unavailable SKELTON, ENDY Attending Unavailable DO, HEAVENLY Q Referring Unavailable KIRSTINCICI Primary Care Unavailable Allergies Allergy Classification Reported Allergen(s) Marco rgy Type Date of Onset Reaction(s) Facility atomoxetine (2 sources) atomoxetine Drug Allergy [facility] medroxyPROGESTERone (2 sources) medroxyPROGESTERone Drug Allergy [facility] (13 sources) atomoxetine Drug Allergy [place] (14 sources) medroxyPROGESTERone; Translations: [Depo-Provera] Drug Allergy [place] (1 source) atomoxetine Drug Allergy [facility] Repository (5 sources) atomoxetine; Translations: [ATOMOXETINE] Drug Allergy [facility] [place] [facility] Repository (20 sources) medroxyPROGESTERone; Translations: [MEDROXYPROGESTERONE] Drug Allergy [facility] Other (1 source) atomoxetine Drug Allergy [facility] Repository (1 source) medroxyPROGESTERone Drug Allergy [facility] Repository (20 sources) ARIPiprazole Drug Allergy [facility] Healthcare (20 sources) atomoxetine Drug Allergy 012 Anaphylaxis [facility] Work Phone: (20 sources) buPROPion; Translations: [BUPROPION] Drug Allergy 023 [facility] (20 sources) Estradiol Drug Allergy 017 [facility] Work Phone: (20 sources) lurasidone Drug Allergy [facility] (20 sources) medroxyPROGESTERone Drug Allergy Other [facility] (20 sources) Quinolones (Antibiotic) Drug Allergy [facility] (20 sources) Sertraline Drug Allergy [facility] (2 sources) Estradiol; Translations: [ESTRADIOL CYPIONATE] Drug Allergy 017 [facility] Repository Medications Current Medications Medication Drug Class(es) Dates Sig (Normalized) Sig (Original) Acetaminophen (2 sources) Start: 02-11-2024 acetaminophen (TYLENOL) tablet 650 mg Start: 09-21-2021 End: 09-21-2021 acetaminophen (TYLENOL) tabl et 1,000 mg Acetaminophen / HYDROcodone (2 sources) Opioid Agonist Start: 09-21-2021 hydrocodone-ac etaminophen (NORCO) tablet 5-325 mg (STARTER PACK) Start: 09-21-2021 End: 09-21-2021 HYDROcodone-acetaminophen (N ORCO) 5-325 MG per tablet 1 tablet amoxicillin 500 mg oral capsule (8 sources) Penicillin-class Antibacterial Start: 06-03-2024 End: 06-09-2024 take 4 capsules by mouth once, then take 1 capsule by mouth every hour amoxicillin (Amoxil) 500 MG capsule Indications: Indication present for endocarditis prophylaxis Take 4 capsules (2,000 mg) by mouth 1 (one) time for 1 dose Take 1 hour prior to procedure. 4 capsule 06/03/2024 06/09/2024 Discontinued (Therapy completed) Start: 09-25-2014 End: 07-05-2019 take 4 capsules by mouth once amoxicillin (AMOXIL) 500 MG capsule Take 4 capsules by mouth once for 1 dose. 16 capsule 4 09/25/2014 07/05/2019 Discontinued (Therapy completed) End: 11-22-2024 take 4 tablets by mouth once amoxicillin (Amoxil) 500 MG tablet Take 2,000 mg by mouth 1 time Take 1 hr before dental procedure 11/22/2024 Discontinued End: 07-10-2020 take 1 capsule by mouth three times daily amoxicillin (AMOXIL) 500 MG capsule Take 500 mg by mouth 3 times daily 0 07/10/2020 Discontinued (LIST CLEANUP) aspirin 81 mg chewable tablet (1 source) Platelet Aggregation Inhibitor, Nonsteroidal Anti-inflammatory Drug Start: 02-12-2024 aspirin chewable tablet 81 mg Start: 02-12-2024 aspirin chewab le tablet 81 mg Blood Pressure Monitoring (BLOOD PRESSURE CUFF) [facility] [place] (15 sources) Start: 03-30-2015 Blood Pressure Monitoring (BLOOD PRESSURE CUFF) [facility] [place] Indications: Essential hypertension 1 kit by Does not apply route daily DX Hypertension 1 each 0 03/30/2015 Active cholecalciferol 0.05 mg oral capsule (3 sources) Vitamin D End: 11-22-2024 take 1 capsule by mouth once daily cholecalciferol (Vitamin D-3) 50 MCG (1999 UT) capsule Take 2,000 Units by mouth Daily 11/22/2024 Discontinued citalopram 20 mg oral tablet (20 sources) Serotonin Reuptake Inhibitor Start: 06-20-2024 End: 12-17-2024 take 1 tablet by mouth once daily citalopram (CeleXA) 20 MG tablet Indications: Moderate major depression (CMS/HCC) , ADOLFO (generalized anxiety disorder) (CMS/HCC) Take 1 tablet (20 mg) by mouth Daily 90 tablet 3 10/26/2024 12/12/2024 Discontinued (Side effects) Start: 02-17-2024 take 1 tablet by rin th once daily citalopram (CeleXA) 20 MG tablet Indications: Moderate major depression (CMS/HCC) , ADOLFO (generalized anxiety disorder) (CMS/HCC) Take 1 tablet (20 mg) by mouth Daily 30 tablet 5 02/17/2024 Active FLUoxetine 20 mg oral tablet (8 sources) Serotonin Reuptake Inhibitor Start: 12-12-2024 End: 04-08-2025 take 1 tablet by mouth once daily FLUoxetine (PROzac) 20 MG tablet Indications: Moderate episode of recurrent major depressive disorder (HCC) , ADOLFO (generalized anxiety disorder) , PTSD (post-traumatic stress disorder) Take 1 tablet (20 mg) by mouth Daily 30 tablet 1 02/07/2025 04/08/2025 Active gentamicin 3 mg/ml ophthalmic solution (1 source) Start: 04-16-2022 End: 04-26-2022 take 1 drop(s) into the eye(s) four times daily gentamicin (GARAMYCIN) 0.3 % ophthalmic solution Place 1 drop into both eyes 4 times daily for 10 days 1 each 0 04/16/2022 04/26/2022 Active ibuprofen 600 mg oral tablet (4 sources) Nonsteroidal Anti-inflammatory Drug Start: 05-10-2023 take 1 tablet by mouth every six hours as needed for pain ibuprofen (IBU) 600 MG tablet Take 1 tablet by mouth every 6 hours as needed for Pain 120 tablet 05/10/2023 Active labetalol hydrochloride 100 mg oral tablet (2 sources) beta-Adrenergic Chelsea Start: 01-15-2025 End: 01-15-2026 take 1 tablet by mouth in the morning labetalol (Normodyne) 100 MG tablet Take 100 mg by mouth in the morning and 100 mg in the evening. 01/15/2025 01/15/2026 Active lisdexamfetamine dimesylate 30 mg oral capsule (20 sources) Central Nervous System Stimulant Start: 11-23-2024 End: 01-31-2025 take 1 capsule by mouth in the morning lisdexamfetamine (Vyvanse) 30 MG capsule Indications: Attention deficit hyperactivity disorder (ADHD), predominantly inattentive type Take 1 capsule (30 mg) by mouth in the morning. 90 capsule 02/01/2025 Active Start: 09-05-2024 End: 09-26-2024 take 2 capsules by mouth once daily, then take 1 capsule by mouth once daily, then take 1 capsule by mouth every other day lisdexamfetamine (Vyvanse) 10 MG capsule Indications: Attention deficit hyperactivity disorder (ADHD), predominantly inattentive type (CMS/HCC) Take 2 capsules (20 mg) by mouth Daily for 7 days, THEN 1 capsule (10 mg) Daily for 7 days, THEN 1 capsule (10 mg) every other day for 7 days. 24 capsule 09/05/2024 09/26/2024 Active Start: 02-11-2024 End: 09-05-2024 take 1 capsule by mouth in the morning lisdexamfetamine (Vyvanse) 30 MG capsule Indications: Attention deficit disorder (ADD) in adult Take 1 capsule (30 mg) by mouth in the morning. 30 capsule 08/22/2024 09/05/2024 Discontinued End: 07-05-2019 take 1 tablet by mouth once daily Lisdexamfetamine Dimesylate (VYVANSE) 40 MG CAPS Indications: Bicuspid aortic valve , Aortic stenosis , Aortic regurgitation Take 1 tablet by mouth daily. 0 07/05/2019 Discontinued (Therapy completed) lisinopril 30 mg oral tablet (20 sources) Angiotensin Converting Enzyme Inhibitor Start: 12-07-2024 take 1 tablet by mouth once daily lisinopril 30 MG tablet Indications: Essential hypertension (CMS/HCC) Take 1 tablet (30 mg) by mouth Daily 90 tablet 3 12/07/2024 Active Start: 07-18-2024 take 1 tablet by rin th once daily lisinopril 30 MG tablet Indications: Essential hypertension (CMS/HCC) Take 1 tablet (30 mg) by mouth Daily 90 tablet 3 07/18/2024 Active Start: 02-11-2024 take 1 tablet by rin th once daily lisinopril 30 MG tablet Indications: Essential hypertension (CMS/HCC) Take 1 tablet (30 mg) by mouth Daily 90 tablet 3 05/25/2024 Active Start: 03-28-2015 End: 02-11-2024 take 1 tablet by mouth once daily lisinopril (PRINIVIL;ZESTRIL) 10 MG tablet Indications: Bicuspid aortic valve , Aortic stenosis , Aortic regurgitation Take 1 tablet by mouth daily 30 tablet 11 03/28/2015 02/11/2024 Discontinued (Stop Taking at Discharge) magnesium hydroxide 80 mg/ml oral suspension (1 source) Start: 02-11-2024 magnesium hydroxide (MILK OF MAGNESIA) 400 MG/5ML suspension 30 mL 100 ml magnesium sulfate 10 mg/ml injection (1 source) Start: 02-11-2024 magnesium sulf ate 1000 mg in dextrose 5% 100 mL IVPB metFORMIN hydrochloride 500 mg oral tablet (20 sources) Biguanide Start: 09-08-2024 End: 09-08-2025 take 2 tablets by mouth at mealtime metFORMIN (Glucophage) 500 MG tablet Indications: Irregular periods/menstrual cycles , PCOS (polycystic ovarian syndrome) Take 2 tablets (1,000 mg) by mouth in the morning. Take with meals. 60 tablet 09/08/2024 09/08/2025 Active Start: 02-12-2024 take 500 mg by mouth once daily at breakfast 500 mg, Oral, DAILY WITH BREAKFAST, First dose on Thu02/12/24 at 0800, Until Discontinued Do not crush or break. Start: 01-07-2024 End: 06-21-2025 take 1 tablet by mouth at mealtime metFORMIN (Glucophage) 500 MG tablet Indications: Irregular periods/menstrual cycles , PCOS (polycystic ovarian syndrome) Take 1 tablet (500 mg) by mouth in the morning. Take with meals. 30 tablet 11 06/21/2024 09/08/2024 Discontinued (Reorder) take 1 tablet by rin th once daily at breakfast metFORMIN (GLUCOPHAGE-XR) 500 MG extended release tablet Take 1 tablet by mouth daily (with breakfast) Active methocarbamol 750 mg oral tablet (1 [...] days 10 tablet 0 03/06/2023 03/11/2023 Active NIFEdipine 30 mg osmotic 24 hr extended release oral tablet (2 sources) Dihydropyridine Calcium Channel Chelsea Start: 01-09-2025 End: 01-09-2026 take 1 tablet by mouth once daily NIFEdipine XL (Procardia XL) 30 MG 24 hr tablet Indications: Essential hypertension Take 1 tablet (30 mg) by mouth Daily Do not crush, chew, or split. 30 tablet 11 01/09/2025 01/09/2026 Active nitroglycerin 0.4 mg sublingual tablet (1 source) Nitrate Vasodilator Start: 02-11-2024 nitroGLYCERIN (NITROSTAT) SL tablet 0.4 mg omeprazole 40 mg delayed release oral capsule (20 sources) Proton Pump Inhibitor Start: 10-26-2024 take 1 capsule by mouth once daily omeprazole (PriLOSEC) [address] capsule Indications: Gastroesophageal reflux disease without esophagitis Take 1 capsule (40 mg) by mouth Daily 90 capsule 3 10/26/2024 Active Start: 05-25-2024 take 1 capsule by mo ut once daily omeprazole (PriLOSEC) [address] capsule Indications: Gastroesophageal reflux disease without esophagitis Take 1 capsule (40 mg) by mouth Daily 90 capsule 3 05/25/2024 Active Start: 04-03-2023 take 1 capsule by mo uth once daily omeprazole (PriLOSEC) [address] capsule Indications: Gastroesophageal reflux disease without esophagitis Take 1 capsule by mouth once daily 90 capsule 3 04/03/2023 Active take 1 capsule by mo uth once daily omeprazole (PRILOSEC) 20 MG delayed release capsule Take 1 capsule by mouth daily Active ondansetron (ZOFRAN-ODT) disintegrating tablet 4 mg (1 source) Start: 02-11-2024 ondansetron (ZOFRAN-ODT) disintegrating tablet 4 mg pantoprazole 40 mg delayed release oral tablet (4 sources) Proton Pump Inhibitor Start: 02-12-2024 take 40 mg by mouth once daily before breakfast 40 mg, Oral, DAILY BEFORE BREAKFAST, First dose on Thu02/12/24 at 0700, Until Discontinued Do not crush or break. Substituted for Omeprazole (PRILOSEC). Start: 12-03-2015 take 1 tablet by rin every twenty-four hours Pantoprazole Sodium 40 mg 1 tablet Orally Once a day for 30 days Nov, Not-Taking End: 07-05-2019 take 40 mg by mouth once daily before breakfast pantoprazole sodium (PROTONIX) 40 MG PACK packet Take 40 mg by mouth every morning (before breakfast) 0 07/05/2019 Discontinued (Therapy completed) Potassium Chloride (1 source) Start: 02-11-2024 potassium chlo ride (KLOR-CON M) extended release tablet 40 mEq Progesterone 200 MG supposit ory (1 source) Start: 02-07-2025 End: 03-09-2025 Progesterone 200 MG supposit ory Indications: History of miscarriage Insert 200 mg into the vagina at bedtime Insert suppository vaginally every night at bedtime until 12 weeks gestation 30 suppository 2 02/07/2025 03/09/2025 Active psyllium 3400 mg powder for oral suspension (2 sources) Start: 05-05-2024 End: 07-04-2024 psyllium (Metamucil Smooth Texture) 58.6 % powder Indications: Other constipation Take 5.12 g (3 g of fiber) by mouth in the morning and 5.12 g (3 g of fiber) before bedtime. 283 g 1 05/05/2024 07/04/2024 Active 5 ml sodium chloride 9 mg/ml injection (6 sources) Start: 02-11-2024 End: 02-13-2024 0.9 % sodium chloride infusi on Start: 02-11-2024 sodium chlorid e flush 0.9 % injection 5-40 mL Start: 07-10-2020 End: 07-10-2020 0.9 % sodium chloride bolus Start: 07-05-2019 End: 07-06-2019 0.9 % sodium chloride bolus Completed/Discontinued Medications Medication Drug Class(es) Dates Sig (Normalized) Sig (Original) azithromycin 250 mg oral tablet (2 sources) [...] Magic Mouthwash (MIRACLE MOUTHWASH) (1 source) Start: 016 End: 019 Magic Mouthwash (MIRACLE MOUTHWASH) Swish and spit 5 mLs 4 times daily as needed for Irritation 240 mL 0 06/27/2016 07/05/2019 Discontinued (Therapy completed) methylPREDNISolone (10 sources) Corticosteroid Start: 024 End: 025 methylPREDNISolone (Medrol Dospak) 4 MG tablets Indications: Left knee pain, unspecified chronicity Follow schedule on package instructions 21 tablet 06/23/2024 09/05/2024 Discontinued Start: 06-23-2024 methylPREDNISo lone (Medrol Dospak) 4 MG tablets Indications: Left knee pain, unspecified chronicity Follow schedule on package instructions 21 tablet 06/23/2024 Active metoprolol tartrate 25 mg oral tablet (1 source) beta-Adrenergic Chelsea Start: 02-11-2024 End: 02-11-2024 metoprolol tartrate (LOPRESSOR) tablet 25 mg 2 ml ondansetron 2 mg/ml injection (16 sources) Serotonin-3 Receptor Antagonist Start: 07-10-2020 End: 07-10-2020 ondansetron (ZOFRAN) injection 4 mg Start: 07-06-2019 [...] 03-06-2023 orphenadrine (NORFLEX) injec tion 60 mg RABEprazole sodium 20 mg delayed release oral [...] times daily. 0 07/05/2019 Discontinued (Therapy completed) 0.25 mg, 0.5 mg dose 1.5 ml semaglutide 1.34 mg/ml pen injector (18 sources) Start: 02-10-2024 End: 09-05-2024 semaglutide (Ozempic) 2 MG/1.5ML solution pen-injector Indications: Encounter for weight management FIRST MONTH inject 0.25 mg under the skin once weekly; then SECOND MONTH inject 0.5 mg under the skin 1 (one) time per week for 4 doses. 1 each 1 02/10/2024 09/05/2024 Discontinued sucralfate 1000 mg oral tablet (2 sources) [...] Translations: [Abdominal pain, unspecified abdominal location] Episodic Anxiety disorders (20 sources) Generalized anxiety disorder; Translations: [Generalized anxiety disorder] Onset: 3 Resolved: 5 03-13-2023 Chronic Attention-deficit conduct and disruptive behavior disorders (20 sources) Attention deficit hyperactivity disorder, predominantly inattentive type; Translations: [Other specified behavioral and emotional disorders with onset usually occurring in childhood and adolescence] Onset: 2 07-13-2012 Chronic Attention-deficit, conduct, and disruptive behavior disorders (19 sources) Attention deficit hyperactivity disorder; Translations: [Attention-deficit hyperactivity disorder, unspecified type] Onset: 3 01-12-2023 Chronic Cardiac and circulatory congenital anomalies (20 sources) Bicuspid aortic valve; Translations: [Congenital insufficiency of aortic valve] Onset: 2 05-05-2012 Chronic Conditions associated with dizziness or vertigo (2 sources) Postural dizziness; Translations: [Dizziness and giddiness] 06-09-2024 Episodic Diabetes mellitus without complication (2 sources) Prediabetes; Translations: [Prediabetes] 09-05-2024 Episodic Disorders usually diagnosed in infancy, childhood, or adolescence (6 sources) Adult attention deficit hyperactivity disorder ; Translations: [Other specified behavioral and emotional disorders with onset usually occurring in childhood and adolescence] 05-18-2024 Chronic Esophageal disorders (20 sources) Gastroesophageal reflux disease; Translations: [Gastro-esophageal reflux disease without esophagitis] Onset: 3 03-13-2023 Chronic Essential hypertension (20 sources) Essential hypertension; Translations: [Essential (primary) hypertension] Onset: 3 03-13-2023 Chronic Heart valve disorders (20 sources) Aortic valve stenosis; Translations: [Aortic valve regurgitation] Onset: 2 05-05-2012 Chronic Hemorrhage during ; abruptio placenta; placenta previa (2 sources) Threatened ; Translations: [Threatened ] Onset: 5 Episodic Hemorrhoids (2 sources) Hemorrhoids; Translations: [Unspecified hemorrhoids] 05-05-2024 Episodic Inflammation; infection of eye (except that caused by tuberculosis or sexually transmitteddisease) (1 source) Bilateral viral conjunctivitis; Translations: [Other viral conjunctivitis] Episodic Mood disorders (20 sources) Moderate major depression ; Translations: [Major depressive disorder, single episode, moderate] Onset: 3 Resolved: 5 03-13-2023 Chronic Nausea and vomiting (5 sources) Nausea, vomiting and diarrhea; Translations: [Nausea and vomiting] Episodic Nutritional deficiencies (20 sources) Vitamin D deficiency; Translations: [Vitamin D deficiency, unspecified] Onset: 3 03-13-2023 Chronic Osteoarthritis (2 sources) Osteoarthritis of left knee joint; Translations: [Unilateral primary osteoarthritis, left knee] 06-23-2024 Chronic Other aftercare (4 sources) Patient encounter status; Translations: [Other jail (current) drug therapy] 09-05-2024 Episodic Other aftercare (2 sources) Taking high risk medication; Translations: [Other long term care pharmacist (current) drug therapy] 12-12-2024 Episodic Other circulatory disease (20 sources) Raynaud's phenomenon; Translations: [Raynaud's syndrome without gangrene] Onset: 3 03-13-2023 Chronic Other connective tissue disease (4 sources) Weakness of hand; Translations: [Other symptoms and signs involving the musculoskeletal system] 07-02-2024 Episodic Other endocrine disorders (7 sources) Polycystic ovary syndrome; Translations: [Polycystic ovarian syndrome] Onset: 5 12-12-2024 Chronic Other female genital disorders (3 sources) Vaginal bleeding; Translations: [Vaginal Bleeding] Onset: 5 Chronic Other gastrointestinal disorders (2 sources) Constipation; Translations: [Other constipation] 05-05-2024 Episodic Other infections; including parasitic (1 source) Infection by Trichomonas; Translations: [Trichomoniasis, unspecified] Episodic Other injuries and conditions due to external causes (1 source) Injury of left knee; Translations: [Unspecified injury of left lower leg, sequela] Episodic Other liver diseases (20 sources) Fatty (change of) liver, not elsewhere classified; Translations: [Other chronic nonalcoholic liver disease] Onset: 3 03-13-2023 Chronic Other nervous system disorders (4 sources) Paresthesia of hand ; Translations: [Anesthesia of skin] 07-02-2024 Episodic Other non-traumatic joint disorders (3 sources) Pain in left knee; Translations: [Pain in joint, lower leg] Episodic Other nutritional; endocrine; and metabolic disorders (18 sources) Morbid obesity; Translations: [Morbid (severe) obesity due to excess calories] Onset: 3 03-13-2023 Chronic Other nutritional; endocrine; and metabolic disorders (13 sources) Severe obesity; Translations: [Morbid (severe) obesity due to excess calories] Onset: 3 09-11-2024 Chronic Other nutritional; endocrine; and metabolic disorders (2 sources) Body mass index 40+ - severely obese; Translations: [Body mass index (BMI) 40.0-44.9, adult] 09-04-2024 Chronic Other nutritional; endocrine; and metabolic disorders (2 sources) Obesity caused by energy imbalance; Translations: [Morbid (severe) obesity due to excess calories] 12-12-2024 Chronic Other upper respiratory disease (20 sources) Allergic rhinitis; Translations: [Allergic rhinitis, unspecified] Onset: 3 03-24-2023 Chronic Spondylosis; intervertebral disc disorders; other back problems (2 sources) Spasm of back muscles; Translations: [Muscle spasm of back] Onset: 5 Episodic Substance-related disorders (9 sources) Marijuana user; Translations: [Cannabis use, unspecified, uncomplicated] Onset: 5 12-12-2024 Episodic Superficial injury; contusion (1 source) Contusion of left knee; Translations: [Contusion of left knee, initial encounter] Episodic Unclassified (1 source) positive preg test 1 wk ago, tonight cramping and spotting Onset: 5 Past or Other Problems Problem Classification Problem Date Documented Date Episodic/Chronic Aortic; peripheral; and visceral artery aneurysms (20 sources) Thoracic aortic aneurysm without rupture; Translations: [Thoracic aortic aneurysm without rupture] Onset: 03-13-2023 Resolved: 12-12-2024 03-13-2023 Chronic Cardiac dysrhythmias (20 sources) Cardiac arrhythmia; Translations: [Cardiac arrhythmia, unspecified] Onset: 04-09-2022 Resolved: 12-12-2024 04-06-2023 Chronic Immunizations and screening for infectious disease (5 sources) Exposure to sexually transmissible disorder; Translations: [Contact with and (suspected) exposure to infections with a predominantly sexual mode of transmission] Onset: 09-02-2022 Episodic Mood disorders (14 sources) Mood disorders Onset: 09-05-2024 Resolved: 12-12-2024 09-05-2024 Nonspecific chest pain (19 sources) Chest pain; Translations: [Chest pain, unspecified] Onset: 03-28-2014 03-28-2014 Episodic Other nervous system disorders (20 sources) H/O: migraine; Translations: [Personal history of other diseases of the nervous system and sense organs] Onset: 08-21-2023 08-21-2023 Episodic Other screening for suspected conditions (not mental disorders or infectious disease) (4 sources) Raised cardiac enzyme or marker; Translations: [Other specified abnormal findings of blood chemistry] Onset: 02-11-2024 Resolved: 03-12-2024 02-11-2024 Episodic Residual codes; unclassified (20 sources) FH: Chromosomal anomaly; Translations: [Family history of other congenital malformations, deformations and chromosomal abnormalities] Onset: 05-07-2017 Resolved: 12-12-2024 04-06-2023 Episodic Sprains and strains (20 sources) Rupture of anterior cruciate ligament of left knee; Translations: [Sprain of anterior cruciate ligament of left knee, initial encounter] Onset: 03-31-2023 Resolved: 08-21-2023 08-21-2023 Episodic Results Test Name Value Interpretation Reference Range Facility ALL HCG, QUANTITATIVEon MHPT HCG, QUANT 2.5 [facility] Comment on above: Non-preg premeno <=5 Postmeno <=8 Male <=3 If HCG results do not concur with clinical observations, additional testing to confirm results is recommended. Original Ordering Provider: [facility], on 02-09-2025 HCG.beta subunit Qn 2.5 m[IU]/mL [facility] Comment on above: Non-preg premeno <=5 Postmeno <=8 Male <=3 If HCG results do not concur with clinical observations, additional testing to confirm results is recommended. [facility] HCG-BETA, SERUMon 02-07-2025 SERUM B HCG,3RD I.S. <^5 Normal [facility] Comment on above: Order Comment: WEEKS (SINCE LMP) MIU/mL 3 WEEKS 5 - 50 4 WEEKS 5 - 426 5 WEEKS 18 - 7,340 6 WEEKS 1,080 - 56,500 7-8 WEEKS 7,650 - 229,000 9-12 WEEKS 25,700 - 288,000 13-16 WEEKS 13,300 - 254,000 17-24 WEEKS 4,060 - 165,400 25-40 WEEKS 3,640 - 117,000 MALES AND NON- FEMALES - <5 MIU/mL This test has been FDA approved for use in only. Elevated levels are not necessarily diagnostic for trophoblastic or nontrophoblastic neoplasms. Performed By: #### H #### [facility] ([facility]) [address] [place] [address] VIR 36on 01-17-2025 36 [facility] PREG QUANT HCG (01/16/2025 9:38 AM EDT) Lab Results - [facility] PREG QUANT HCG (01/16/2025 9:38 AM EDT) HCG QUANTITATIVE 3 mIU/mL [facility] Comment: 5-50 0.2-1 WEEK 50-500 1-2 WEEKS 100-5,000 2-3 WEEKS 500-10,000 3-4 WEEKS 1,000-50,000 4-5 WEEKS 10,000-100,000 5-6 WEEKS 15,000-200,000 6-8 WEEKS 10,000-100,000 2-3 MONTHS Normal [facility] PREG QUANT HCGon 025 HCG QUANTITATIVE 3 mIU/mL [facility] Comment on above: 5-50 0.2-1 WEEK 50-500 1-2 WEEKS 100-5,000 2-3 WEEKS 500-10,000 3-4 WEEKS 1,000-50,000 4-5 WEEKS 10,000-100,000 5-6 WEEKS 15,000-200,000 6-8 WEEKS 10,000-100,000 2-3 MONTHS [facility]on 01-15-2025 36 They had put her on nifedipine but I do not want her on a calcium channel chelsea. I switched her to labetalol at 100 mg twice a day and sent the prescription in. She will call us and give us some of her blood pressures over the course of the week. She did stop her lisinopril after she found that she was but she has been having bleeding and will be going in on Thursday to find out what is going on. [facility] Orders Onlyon 01-15-2025 Orders Only [id number] Urmila Sosa 1995 F Date Provider Department Center 01/15/2025 ENDY EVERETT No family history on file [facility] 36on 01-13-2025 36 Would you like me to notify patient to discontinue lisinopril and consider transitioning her to labetalol or nifedipine pending your recommendation? Please advise and let me know if I can assist further. [facility] ABO/RHon 01-13-2025 ABO_INTEP O [facility] Comment on above: Performed By: #### T YPEB #### [facility] ([facility]) [address] [place] [address] VIR RH_INTEP Positive Normal [facility] Comment on above: Performed By: #### T YPEB #### [facility] ([facility]) [address] [place] [address] VIR CBC WITH AUTO DIFFERENTIALon 01-13-2025 CELLAVISION BASOPHILS ABSOLUTE COUNT (10*3/UL) BY MANUAL COUNT 0.3 10*3/uL High 0.0-0.2 [facility] Comment on above: Result Comment: This is an appended report. These results have been appended to a previously preliminary verified report. Performed By: #### C BCA #### [facility] ([facility]) [address] [place] [address] VIR CELLAVISION BASOPHILS RELATIVE PERCENT BY MANUAL COUNT 2 % Normal [facility] Comment on above: Result Comment: This is an appended report. These results have been appended to a previously preliminary verified report. Performed By: #### C BCA #### [facility] ([facility]) [address] [place] [address] VIR CELLAVISION DIFFERENTIAL TYPE MANUAL DIFFERENTIAL Normal [facility] Comment on above: Result Comment: This is an appended report. These results have been appended to a previously preliminary verified report. Performed By: #### C BCA #### [facility] ([facility]) [address] [place] [address] VIR CELLAVISION EOSINOPHILS ABSOLUTE COUNT (10*3/UL) BY MANUAL COUNT 0.6 10*3/uL High 0.0-0.4 [facility] Comment on above: Result Comment: This is an appended report. These results have been appended to a previously preliminary verified report. Performed By: #### C BCA #### [facility] ([facility]) [address] [place] [address] VIR CELLAVISION EOSINOPHILS PERCENT BY MANUAL COUNT 4 % Normal [facility] Comment on above: Result Comment: This is an appended report. These results have been appended to a previously preliminary verified report. Performed By: #### C BCA #### [facility] ([facility]) [address] [place] [address] VIR CELLAVISION LYMPHOCYTES ABSOLUTE COUNT (10*3/UL) BY MANUAL COUNT 2.9 10*3/uL Normal 1.0-3.5 [facility] Comment on above: Result Comment: This is an appended report. These results have been appended to a previously preliminary verified report. Performed By: #### C BCA #### [facility] ([facility]) [address] [place] [address] VIR CELLAVISION LYMPHOCYTES RELATIVE PERCENT BY MANUAL COUNT 21 % Normal [facility] Comment on above: Result Comment: This is an appended report. These results have been appended to a previously preliminary verified report. Performed By: #### C BCA #### [facility] ([facility]) [address] [place] [address] VIR CELLAVISION MONOCYTES ABSOLUTE COUNT (10*3/UL) IN BLOOD BY MANUAL COUNT 0.3 10*3/uL Normal 0.0-0.9 [facility] Comment on above: Result Comment: This is an appended report. These results have been appended to a previously preliminary verified report. Performed By: #### C BCA #### [facility] ([facility]) [address] [place] [address] VIR CELLAVISION MONOCYTES RELATIVE PERCENT BY MANUAL COUNT 2 % Normal [facility] Comment on above: Result Comment: This is an appended report. These results have been appended to a previously preliminary verified report. Performed By: #### C BCA #### [facility] ([facility]) [address] [place] [address] VIR CELLAVISION NEUTROPHILS ABSOLUTE COUNT BY MANUAL COUNT 9.7 10*3/uL High 1.5-6.6 [facility] Comment on above: Result Comment: This is an appended report. These results have been appended to a previously preliminary verified report. Performed By: #### C BCA #### [facility] ([facility]) [address] [place] [address] VIR CELLAVISION NEUTROPHILS RELATIVE PERCENT BY MANUAL COUNT 71 % Normal [facility] Comment on above: Result Comment: This is an appended report. These results have been appended to a previously preliminary verified report. Performed By: #### C BCA #### [facility] ([facility]) [address] [place] [address] VIR CELLAVISION RBC MORPHOLOGY Normal Normal [facility] Comment on above: Result Comment: This is an appended report. These results have been appended to a previously preliminary verified report. Performed By: #### C BCA #### [facility] ([facility]) [address] [place] [address] VIR Erythrocyte distribution width (RBC) [Ratio] 13.9 % Normal 11.5-15 [facility] Comment on above: Performed By: #### C BCA #### [facility] ([facility]) [address] [place] [address] VIR Hematocrit (Bld) [Volume fraction] 36.5 % Normal 35-47 [facility] Comment on above: Performed By: #### C BCA #### [facility] ([facility]) [address] [place] [address] VIR Hemoglobin (Bld) [Mass/Vol] 12.6 g/dL Normal 11.7-15.5 [facility] Comment on above: Performed By: #### C BCA #### [facility] ([facility]) [address] [place] [address] VIR MCH (RBC) [Entitic mass] 27.5 pg Normal 27-34 [facility] Comment on above: Performed By: #### C BCA #### [facility] ([facility]) [address] [place] [address] VIR MCHC (RBC) [Mass/Vol] 34.5 g/dL Normal 32-36 [facility] Comment on above: Performed By: #### C BCA #### [facility] ([facility]) [address] [place] [address] VIR MCV (RBC) [Entitic vol] 80 fL Normal 80-100 [facility] Comment on above: Performed By: #### C BCA #### [facility] ([facility]) [address] [place] [address] VIR Platelet mean volume (Bld) [Entitic vol] 10.4 fL Normal 7-12 [facility] Comment on above: Performed By: #### C BCA #### [facility] ([facility]) [address] [place] [address] VIR Platelets (Bld) [#/Vol] 249 10*3/uL Normal 150-450 [facility] Comment on above: Performed By: #### C BCA #### [facility] ([facility]) [address] [place] [address] VIR RBC COUNT 4.57 X10E12/L Normal 3.8-5.2 [facility] Comment on above: Performed By: #### C BCA #### [facility] ([facility]) [address] [place] [address] VIR WBC (Bld) [#/Vol] 13.8 10*3/uL High 4-11 [facility] Comment on above: Performed By: #### C BCA #### [facility] ([facility]) [address] [place] [address] VIR COMPREHENSIVE METABOLIC PANE Josh 01-13-2025 Albumin [Mass/Vol] 4.2 g/dL Normal 3.2-5.3 [facility] Comment on above: Performed By: #### C MP #### [facility] ([facility]) [address] [place] [address] VIR ALP [Catalytic activity/Vol] 90 U/L Normal 39-130 [facility] Comment on above: Performed By: #### C MP #### [facility] ([facility]) [address] [place] [address] VIR ALT [Catalytic activity/Vol] 17 U/L Normal <=31 [facility] Comment on above: Performed By: #### C MP #### [facility] ([facility]) [address] [place] [address] VIR Anion gap [Moles/Vol] 10 mmol/L Normal 5-15 [facility] Comment on above: Performed By: #### C MP #### [facility] ([facility]) [address] [place] [address] VIR AST [Catalytic activity/Vol] 15 U/L Normal <=41 [facility] Comment on above: Performed By: #### C MP #### [facility] ([facility]) [address] [place] [address] VIR Bilirubin [Mass/Vol] 0.1 mg/dL Low 0.3-1.2 [facility] Comment on above: Performed By: #### C MP #### [facility] ([facility]) [address] [place] [address] VIR Calcium [Mass/Vol] 8.8 mg/dL Normal 8.5-10.5 [facility] Comment on above: Performed By: #### C MP #### [facility] ([facility]) [address] [facility] [address] [place] [address] VIR Chloride [Moles/Vol] 103 mmol/L Normal 98-109 [facility] Comment on above: Performed By: #### C MP #### [facility] ([facility]) [address] [place] [address] VIR CO2 [Moles/Vol] 28 mmol/L Normal 22-32 [facility] Comment on above: Performed By: #### C MP #### [facility] ([facility]) [address] [facility] [address] [place] [address] VIR Creatinine [Mass/Vol] 1.10 mg/dL High 0.40-1.00 [facility] Comment on above: Result Comment: METH OD TRACEABLE TO IDMS STANDARD Performed By: #### C MP #### [facility] ([facility]) [address] [place] [address] VIR GFR/1.73 sq M.predicted among non-blacks MDRD (S/P/Bld) [Vol rate/Area] 70 mL/min/{1.73_m2} Normal >=60 [facility] Comment on above: Result Comment: Repo rted eGFR is based on the CKD-EPI 2020 equation that does not use a race coefficient. Performed By: #### C MP #### [facility] ([facility]) [address] [place] [address] VIR Glucose [Mass/Vol] 91 mg/dL Normal 65-99 [facility] Comment on above: Performed By: #### C MP #### [facility] ([facility]) [address] [place] [address] VIR Potassium [Moles/Vol] 3.6 mmol/L Normal 3.5-5.0 [facility] Comment on above: Performed By: #### C MP #### [facility] ([facility]) [address] [place] [address] VIR Protein [Mass/Vol] 6.3 g/dL Normal 6.0-8.0 [facility] Comment on above: Performed By: #### C MP #### [facility] ([facility]) [address] [place] [address] VIR Sodium [Moles/Vol] 141 mmol/L Normal 134-146 [facility] Comment on above: Performed By: #### C MP #### [facility] ([facility]) [address] [place] [address] VIR Urea nitrogen [Mass/Vol] 17 mg/dL Normal 5-23 [facility] Comment on above: Performed By: #### C MP #### [facility] ([facility]) [address] [place] [address] VIR HCG-BETA, SERUMon 01-13-2025 HCG.beta subunit Qn 20 m[IU]/mL Normal [facility] Comment on above: Order Comment: If ur ine positive and suspect ectopic/miscarriage. WEEKS (SINCE LMP) MIU/mL 3 WEEKS 5 - 50 4 WEEKS 5 - 426 5 WEEKS 18 - 7,340 6 WEEKS 1,080 - 56,500 7-8 WEEKS 7,650 - 229,000 9-12 WEEKS 25,700 - 288,000 13-16 WEEKS 13,300 - 254,000 17-24 WEEKS 4,060 - 165,400 25-40 WEEKS 3,640 - 117,000 MALES AND NON- FEMALES - <5 MIU/mL This test has been FDA approved for use in only. Elevated levels are not necessarily diagnostic for trophoblastic or nontrophoblastic neoplasms. Performed By: #### H #### [facility] ([facility]) [address] [place] [address] VIR POCT NURSING URINE MACROSCOP IC UAon 01-13-2025 BILIRUBIN AIDAN Negative Normal Negative [facility] Comment on above: Performed By: #### N UM #### [facility] ([facility]) [address] [place] [address] VIR BLOOD/HGB AIDAN Moderate Abnormal Negative [facility] Comment on above: Performed By: #### N UM #### [facility] ([facility]) [address] [place] [address] VIR GLUCOSE AIDAN Negative Normal Negative [facility] Comment on above: Performed By: #### N UM #### [facility] ([facility]) [address] [place] [address] VIR KETONES AIDAN Negative Normal Negative [facility] Comment on above: Performed By: #### N UM #### [facility] ([facility]) [address] [place] [address] VIR LEUKOCYTE ESTERASE AIDAN Negative Normal Negative [facility] Comment on above: Performed By: #### N UM #### [facility] ([facility]) [address] [place] [address] VIR NITRITE AIDAN Negative Normal Negative [facility] Comment on above: Performed By: #### N UM #### [facility] ([facility]) [address] [place] [address] VIR PH AIDAN 6.0 Normal 5.0, 6.0, 6.5, 7.0, 7.5, 8.0, 8.5, 5.5 [facility] Comment on above: Performed By: #### N UM #### [facility] ([facility]) [address] [place] [address] VIR PROTEIN AIDAN Negative Normal Negative [facility] Comment on above: Performed By: #### N UM #### [facility] ([facility]) [address] [place] [address] VIR SPECIFIC GRAVITY AIDAN 1.025 Normal 1.010, 1.015, 1.020, 1.025 [facility] Comment on above: Performed By: #### N UM #### [facility] ([facility]) [address] [place] [address] VIR UROBILINOGEN AIDAN 0.2 E.U./dL Normal [facility] Comment on above: Performed By: #### N UM #### [facility] ([facility]) [address] [place] [address] VIR POCT , URINE (NUCG) on 01-13-2025 Beta HCG ( test) Ql (U) Positive Abnormal Negative [facility] Comment on above: Performed By: #### N UCG #### [facility] ([facility]) [address] [place] [address] VIR US PREG LESS THAN 14 WKS WIT H TRANSVAGINALon 01-13-2025 US PREG LESS THAN 14 WKS WITH TRANSVAGINAL US PREG LESS THAN 14 WKS WITH TRANSVAGINAL US PREG LESS THAN 14 WKS WITH TRANSVAGINAL HISTORY: Cramping, spotting, positive urine test, gestational age of 6 weeks by patient's last menstrual period. Beta-hCG 20. COMPARISON: No recent relevant comparison examinations TECHNIQUE: Ultrasound utilizing transabdominal and transvaginal imaging. Transabdominal imaging performed to evaluate for extra adnexal pelvic pathology. Transvaginal imaging performed for better delineation of the adnexal and endometrial contents. Grayscale used. FINDINGS: The uterus measures approximately 10.8 x 6.0 x 4.6 cm. Endometrial thickness of 1.2 cm. No gestational sac visualized. There is no evidence of free fluid in the pelvic cul-de-sac. The right ovary measures 3.1 x 2.3 x 1.9 cm. No abnormal right adnexal masses demonstrated.. The left ovary measures 3.1 x 2.4 x 2.2 cm. No abnormal left adnexal masses demonstrated. IMPRESSION: * of unknown location in this patient with an hCG value of less than 2000 IU, no intrauterine fluid collection and normal adnexa. Women with an ectopic often have such an hCG value, but a single hCG should not be used to exclude a potentially normal IUP in a hemodynamically stable patient. Recommend follow-up with hCG and/or ultrasound until diagnosis. CITATION: [place] PURDY, et al. Diagnostic Criteria for Nonviable Early in the First Trimester. N Engl J Med. 2012May 19;369(15):1449-74. Approved by Resident Sen Gandhi MD on 01/13/2025 3:15 AM IToño MD have personally reviewed the image(s) and agree with and/or edited the report Finalized by Toño Norton MD on 01/13/2025 3:44 AM [facility] 01-09-2025 36 Patient called to request a med. change (lisinopril) due to new . Patient stated that Dr. Skelton told her to call when/ if she were to become . [facility] 3611-08-2024 36 Patient notified that script was sent as requested. She verbalized understanding. [facility] 36 Script sent [facility] 36 Patient has an emergency dental appointment today at 3:15pm for a broken tooth. She is unsure if she needs to have an antibiotic for today. Pharmacy: [facility] PH: [phone] [facility] Orders Onlyon 11-08-2024 Orders Only [id number] Urmila Sosa 1995 F Date Provider Department Center 11/08/2024 ENDY EVERETT No family history on file [facility] 37on 09-12-2024 37 No change in Lisinopril Work on mental health No limitations ECHO after next visit. Normal [facility] Office Visiton 09-12-2024 Follow-up visit [id number] Urmila Sosa 1995 F Date Provider Department Center 09/12/2024 ENDY EVERETT No family history on file Level of Service:09788 [place] OFFICE/OUTPATIENT ESTABLISHED MOD MDM 30 MIN Reason for Visit and Comments: Follow-up [224620] - 6 mo follow up bicuspid aortic valve. Normal [facility] 25-hydroxyvitamin D3 [Mass/V ol]on 09-06-2024 25-hydroxyvitamin D [Mass/Vol] 22 ng/mL Low 30.0 - 100.0 ng/mL [facility] Comment on above: Vitamin D deficiency has been defined by the [place] of [employer] and an Endocrine Society practice guideline as a level of serum 25-OH vitamin D less than 20 ng/mL (1,2). The Endocrine Society went on to further define vitamin D insufficiency as a level between 21 and 29 ng/mL (2). 1. IOM ([place] of [employer]). 2010. Dietary reference intakes for calcium and D. [place]: The National Academies Press. 2. Harleen MF, Low [place], Loly COOPER, et al. Evaluation, treatment, and prevention of vitamin D deficiency: an Endocrine Society clinical practice guideline. JCEM. 2010; 96(7):1911-30. CBC W Auto Differential pane l (Bld)on 09-06-2024 Basophils (Bld) [#/Vol] 0.1 10*3/uL [facility] Basophils/100 WBC (Bld) 1 % Not Estab. N [facility] Eosinophils (Bld) [#/Vol] 0.5 10*3/uL High [facility] Eosinophils/100 WBC (Bld) 5 % Not Estab. [facility] Erythrocyte distribution width (RBC) [Ratio] 13.2 % 11.7 - 15.4 % [facility] Hematocrit (Bld) [Volume fraction] 44.1 % 34.0 - 46.6 % [facility] Hemoglobin (Bld) [Mass/Vol] 14.2 g/dL 11.1 - 15.9 g/dL [facility] Immature granulocytes (Bld) [#/Vol] 0 10*3/uL [facility] Immature granulocytes/100 WBC (Bld) 0 % Not Estab. [facility] Lymphocytes (Bld) [#/Vol] 2.1 10*3/uL [facility] Lymphocytes/100 WBC (Bld) 24 % Not Estab. [facility] MCH (RBC) [Entitic mass] 26.9 pg 26.6 - 33.0 pg [facility] MCHC (RBC) [Mass/Vol] 32.2 g/dL 31.5 - 35.7 g/dL [facility] MCV (RBC) [Entitic vol] 84 fL 79 - 97 fL N [facility] Monocytes (Bld) [#/Vol] 0.6 10*3/uL [facility] Monocytes/100 WBC (Bld) 7 % Not Estab. N [facility] Neutrophils (Bld) [#/Vol] 5.5 10*3/uL [facility] Neutrophils/100 WBC (Bld) 63 % Not Estab. [facility] Platelets (Bld) [#/Vol] 338 10*3/uL [facility] RBC (Bld) [#/Vol] 5.28 10*6/uL [facility] WBC (Bld) [#/Vol] 8.9 10*3/uL [facility] and C hemistry - challengeon 09-06-2024 Albumin [Mass/Vol] 4.5 g/dL 4.0 - 5.0 g/dL [facility] ALP [Catalytic activity/Vol] 103 U/L [facility] ALT [Catalytic activity/Vol] 31 U/L [facility] AST [Catalytic activity/Vol] 23 U/L [facility] Average glucose Estimated from glycated hemoglobin (Bld) [Mass/Vol] 117 mg/dL [facility] Bilirubin [Mass/Vol] 0.3 mg/dL 0.0 - 1 .2 mg/dL [facility] Calcium [Mass/Vol] 9.5 mg/dL 8.7 - 10. 2 mg/dL [facility] Chloride [Moles/Vol] 103 mmol/L 96 - 10 6 mmol/L [facility] CO2 [Moles/Vol] 25 mmol/L 20 - 29 mmol/L [facility] Cobalamin (Vitamin B12) [Mass/Vol] 507 pg/mL 232 - 1245 pg/mL [facility] Creatinine [Mass/Vol] 1.04 mg/dL High 0.57 - 1.00 mg/dL [facility] GFR/1.73 sq M.predicted among non-blacks MDRD (S/P/Bld) [Vol rate/Area] 75 mL/min/{1.73_m2} 59 - PINF mL/min/1.73 [facility] Globulin (S) [Mass/Vol] 2.5 g/dL 1.5 - 4.5 g/dL [facility] Glucose [Mass/Vol] 98 mg/dL 70 - 99 mg/dL [facility] Potassium [Moles/Vol] 4.8 mmol/L 3.5 - 5.2 mmol/L [facility] Protein [Mass/Vol] 7 g/dL 6.0 - 8.5 g/dL [facility] Sodium [Moles/Vol] 141 mmol/L 134 - 144 mmol/L [facility] Urea nitrogen [Mass/Vol] 13 mg/dL 6 - 20 mg/dL [facility] Urea nitrogen/Creatinine [Mass ratio] 13 mg/mg 9 - 23 [facility] Laboratory - Hematology and Cell countson 09-06-2024 HbA1c (Bld) [Mass fraction] 5.7 % High 4.8 - 5.6 % [facility] Comment on above: Prediabetes: 5.7 - 6 .4 Diabetes: >6.4 Glycemic control for adults with diabetes: <7.0 Lipid 1996 panelon Cholesterol [Mass/Vol] 243 mg/dL High 100 - 199 mg/dL [facility] Cholesterol in HDL [Mass/Vol] 35 mg/dL Low 39 - PINF mg/dL [facility] Cholesterol in LDL [Mass/Vol] 168 mg/dL High 0 - 99 mg/dL [facility] Cholesterol in VLDL [Mass/Vol] 40 mg/dL 5 - 40 mg/dL [facility] Triglyceride [Mass/Vol] 212 mg/dL High 0 - 149 mg/dL [facility] No Panel Informationon 09-06 Interpretation and review of laboratory results Abnormal [facility] Performed at: [address] [id number] Ironing Machine Operator: Moses Don PhD, Phone: [phone] [facility] [employer] e XR Knee - left 1 or 2 Viewso n 06-23-2024 Imaging Result: 06/23/2024: AP and lateral views of left knee demonstrate mild varus deformity with decreased medial joint space with flattening of the articular surfaces to the medial joint line lateral joint line and patellofemoral joint. Subchondral sclerosis was noted at the medial joint line surfaces. There is no evidence of fracture or dislocation. 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 Christy Gimenez CURATOR [employer]ER [employer]ICER [facility] [employer] Radiology Study observation (narrative) [facility] No change in meds Hydrate well Work on moderate activity Blood work [facility] Office Visiton 02-22-2024 Follow-up visit [id number] Urmila Sosa 1995 F Date Provider Department Center 02/22/2024 ENDY [facility]ERETT [facility] No family history on file Level of Service:33821 [place] OFFICE/OUTPATIENT ESTABLISHED LOW MDM 20 MIN [facility] 3602-19-2024 36 Called patient told her to keep appointment ThursdayFebruary 21. [facility] 3602-15-2024 36 Have her keep appointment for now. [facility] 3602-12-2024 36 Patient was hospitalized at [facility] 02/10. Her discharge paperwork said to follow-up with cardiology. She stated she saw Dr. Skelton while inpatient and she is unsure if he wanted to schedule a follow-up. She is currently scheduled 02/22/24. She requested a call either way (if she needs to keep or cancel the appointment). PH: [phone] [facility] Telephoneon 02-12-2024 Telephone [phone] Urmila Sosa 1995 F Date Provider Department Center 02/12/2024 ENDY EVERETT [place] No family history on file Reason for Visit and Comments: Appointment [375] Normal [facility] Basic Metabolic Panelon 07-0 Anion gap [Moles/Vol] 10 mmol/L 9 - 16 mmol/L [facility] Calcium [Mass/Vol] 8.7 mg/dL 8.6 - 10. 4 mg/dL [facility] Chloride [Moles/Vol] 106 mmol/L 98 - 10 7 mmol/L [facility] CO2 [Moles/Vol] 22 mmol/L 20 - 31 mmol/L [facility] Creatinine [Mass/Vol] 1.2 mg/dL High 0.50 - 0.90 mg/dL [facility] Est, Glom Filt Rate 67 - PINF [facility] Comment on above: These results are not intended for use in patients <18 years of age. eGFR results are calculated without a race factor using the 2020 CKD-EPI equation. Careful clinical correlation is recommended, particularly when comparing to results calculated using previous equations. The CKD-EPI equation is less accurate in patients with extremes of muscle mass, extra-renal metabolism of creatine, excessive creatine ingestion, or following therapy that affects renal tubular secretion. Glucose [Mass/Vol] 114 mg/dL High 74 - 99 mg/dL [facility] Potassium [Moles/Vol] 4.2 mmol/L 3.7 - 5.3 mmol/L [facility] Comment on above: SPECIMEN SLIGHTLY HE MOLYZED, RESULTS MAY BE ADVERSELY AFFECTED. Sodium [Moles/Vol] 138 mmol/L 136 - 145 mmol/L [facility] Urea nitrogen [Mass/Vol] 14 mg/dL 6 - 20 mg/dL [facility] Basic Metabolic Profon 02-10 Anion gap [Moles/Vol] 10 mmol/L Normal 9-16 [facility] Comment on above: Performed By: #### B HERNANDO MEYER LIPR, MG #### [facility] [employer] [facility] [place] [address] Ironing Machine Operator: Jean Carlos Abraham MD Calcium [Mass/Vol] 8.7 mg/dL Normal 8.6-10.4 [facility] Comment on above: Performed By: #### B MP, TROPI, LIPR, MG #### [facility] [place] [address] Ironing Machine Operator: Jean Carlos Abraham MD Chloride [Moles/Vol] 106 mmol/L Normal 98-107 [facility] Comment on above: Performed By: #### B MP, TROPI, LIPR, MG #### [facility] [address] [place] [id number] Ironing Machine Operator: Jean Carlos Abraham MD CO2 [Moles/Vol] 22 mmol/L Normal 20-31 [facility] Comment on above: Performed By: #### B MP, TROPI, LIPR, MG #### [facility] [address] [place] [address] Ironing Machine Operator: Jean Carlos Abraham MD Creatinine [Mass/Vol] 1.2 mg/dL High 0.50-0.90 [facility] Comment on above: Performed By: #### B MP, TROPI, LIPR, MG #### [facility] [address] [place] [address] Ironing Machine Operator: Jean Carlos Abraham MD GFR/1.73 sq M.predicted among non-blacks MDRD (S/P/Bld) [Vol rate/Area] 67 mL/min/{1.73_m2} Normal >60 [facility] Comment on above: Result Comment: These results are not intended for use in patients <18 years of age. eGFR results are calculated without a race factor using the 2020 CKD-EPI equation. Careful clinical correlation is recommended, particularly when comparing to results calculated using previous equations. The CKD-EPI equation is less accurate in patients with extremes of muscle mass, extra-renal metabolism of creatine, excessive creatine ingestion, or following therapy that affects renal tubular secretion. Performed By: #### B MP, TROPI, LIPR, MG #### [facility] [address] [place] [address] Ironing Machine Operator: Jean Carlos Abraham MD Glucose [Mass/Vol] 114 mg/dL High 74-99 [facility] Comment on above: Performed By: #### B MP, TROPI, LIPR, MG #### [employer] [address] [place] [id number] Ironing Machine Operator: Jean Carlos Abraham MD Potassium [Moles/Vol] 4.2 mmol/L Normal 3.7-5.3 [facility] Comment on above: Result Comment: SPEC IMEN SLIGHTLY HEMOLYZED, RESULTS MAY BE ADVERSELY AFFECTED. Performed By: #### B MP, TROPI, LIPR, MG #### [facility] [place], [place] [phone] Ironing Machine Operator: Jean Carlos Abraham MD Sodium [Moles/Vol] 138 mmol/L Normal 136-145 [facility] Comment on above: Performed By: #### B MP, TROPI, LIPR, MG #### [facility] [address] [place] [address] Ironing Machine Operator: Jean Carlos Abraham MD Urea nitrogen [Mass/Vol] 14 mg/dL Normal 6-20 [facility] Comment on above: Performed By: #### B MP, TROPI, LIPR, MG #### [employer] [address] [place] [id number] Ironing Machine Operator: Jean Carlos Abraham MD CBCon 02-11-2024 Erythrocyte distribution width (RBC) [Ratio] 12.7 % 11.8 - 14.4 % [facility] Hematocrit (Bld) [Volume fraction] 40.2 % 36.3 - 47.1 % [facility] Hemoglobin (Bld) [Mass/Vol] 13.0 g/dL 11.9 - 15.1 g/dL [facility] MCH (RBC) [Entitic mass] 27.3 pg 25.2 - 33.5 pg [facility] MCHC (RBC) [Mass/Vol] 32.3 g/dL 28.4 - 34.8 g/dL [facility] MCV (RBC) [Entitic vol] 84.5 fL 82.6 - 102.9 fL [facility] Nucleated RBC/100 WBC (Bld) [Ratio] 0.0 % 0.0 per 100 WBC [facility] Platelet mean volume (Bld) [Entitic vol] 11.6 fL 8.1 - 13.5 fL [facility] Platelets (Bld) [#/Vol] 233 10*3/uL [facility] RBC (Bld) [#/Vol] 4.76 10*6/uL 3.95 - 5.1 1 m/uL [facility] WBC other (Bld) [#/Vol] 10.[address] [facility] Erythrocyte distribution width (RBC) [Ratio] 12.7 % Normal 11.8-14.4 [facility] Comment on above: Performed By: #### C BC #### [place] [address] Ironing Machine Operator: Jean Carlos Abraham MD Hematocrit (Bld) [Volume fraction] 40.2 % Normal 36.3-47.1 [facility] Comment on above: Performed By: #### C BC #### [place] [address] Ironing Machine Operator: Jean Carlos Abraham MD Hemoglobin (Bld) [Mass/Vol] 13.0 g/dL Normal 11.9-15.1 [facility] Comment on above: Performed By: #### C BC #### [place] [address] Ironing Machine Operator: Jean Carlos Abraham MD MCH (RBC) [Entitic mass] 27.3 pg Normal 25.2-33.5 [facility] Comment on above: Performed By: #### C BC #### [place] [address] Ironing Machine Operator: Jean Carlos Abraham MD MCHC (RBC) [Mass/Vol] 32.3 g/dL Normal 28.4-34.8 [facility] Comment on above: Performed By: #### C BC #### [address] [address] Ironing Machine Operator: Jean Carlos Abraham MD MCV (RBC) [Entitic vol] 84.5 fL Normal 82.6-102.9 [facility] Comment on above: Performed By: #### C BC #### [address] [address] Ironing Machine Operator: Jean Carlos Abraham MD NRBC Automated 0.0 per 100 WBC Normal 0.0 [facility] Comment on above: Performed By: #### C BC #### [address] [address] Ironing Machine Operator: Jean Carlos Abraham MD Platelet mean volume (Bld) [Entitic vol] 11.6 fL Normal 8.1-13.5 [facility] Comment on above: Performed By: #### C BC #### [address] [address] Ironing Machine Operator: Jean Carlos Abraham MD Platelets (Bld) [#/Vol] 233 10*3/uL Normal 138-453 [facility] Comment on above: Performed By: #### C BC #### [address] [address] Ironing Machine Operator: Jean Carlos Abraham MD RBC (Bld) [#/Vol] 4.76 10*6/uL Normal 3.95-5.11 [facility] Comment on above: Performed By: #### C BC #### [address] [address] Ironing Machine Operator: Jean Carlos Abraham MD WBC (Bld) [#/Vol] 10.2 10*3/uL Normal 3.5-11.3 [facility] Comment on above: Performed By: #### C BC #### [address] [place] [address] Ironing Machine Operator: Jean Carlos Abraham MD Drug Screen,Urineon 02-11-20 24 Amphetamine Screen,Urine Positive High Negative [facility] Comment on above: Performed By: #### U A, UHCG, URDS ####[place] [address] [place] [address] [facility] Barbiturate Screen,Urine Negative Normal Negative [facility] Comment on above: Performed By: #### U A, UHCG, URDS ####[place] [place] [address] [facility] Benzodiazepines Screen,Urine Negative Normal Negative [facility] Comment on above: Performed By: #### U A, UHCG, URDS ####[address] [address] [facility] Cannabinoid Screen,Urine Positive High Negative [facility] Comment on above: Result Comment: Thes e are unconfirmed results and should not be used for legal purposes. Drug Cut-Off Concentration: AMPH 1000 ng/mL ZACKERY 200 ng/mL ISAÍAS 200 ng/mL COCM 300 ng/mL OP 300 ng/mL PCP 25 ng/mL THC 20 ng/mL PERFORMED BY: [facility] [address] [facility] [place] [address] PATHOLOGIST VOTING MACHINE MECHANIC JESUS LEMA M.D. Performed By: #### U A, UHCG, URDS ####[place] [address] [facility] Cocaine Screen,Urine Negative Normal Negative [facility] Comment on above: Performed By: #### U A, UHCG, URDS ####[address] [address] [facility] Opiate Screen,Urine Negative Normal Negative [facility] Comment on above: Performed By: #### U A, UHCG, URDS ####[place] [address] [place] [address] [facility] Phencyclidine Screen,Urine Negative Normal Negative [facility] Comment on above: Performed By: #### U A, UHCG, URDS ####[facility] [address] [place] [address] [facility] Glucose,Whole Bloodon 2023 Glucose [Mass/Vol] 109 mg/dL High 65-105 [facility] HCG,Urineon 02-11-2024 Beta HCG ( test) Ql (U) Negative Normal [facility] Comment on above: Order Comment: Name Collection Type:: Clean-Voided Midstream Result Comment: PERF ORMED BY: [facility] [address] [place] [id number] PATHOLOGIST VOTING MACHINE MECHANIC JESUS LEMA M.D. Performed By: #### U A, UHCG, URDS ####[facility] [address] [place] [id number] [facility] Lipid Panelon 02-11-2024 Cholesterol [Mass/Vol] 192 mg/dL 0 - 1 99 mg/dL [facility] Comment on above: Cholesterol Guidelines: <200 Desirable 200-240 Borderline >240 Undesirable Cholesterol in HDL [Mass/Vol] 27 mg/dL Low 40 - PINF mg/dL [facility] Comment on above: HDL Guidelines: <40 Undesirable 40-59 Borderline >59 Desirable Cholesterol in LDL [Mass/Vol] 109 mg/dL High 0 - 100 mg/dL [facility] Comment on above: LDL Guidelines: <100 Desirable 100-129 Near to/above Desirable 130-159 Borderline >159 Undesirable Direct (measured) LDL and calculated LDL are not interchangeable tests. Cholesterol in VLDL [Mass/Vol] 56 mg/dL [facility] Cholesterol.total/Victoria sterol in HDL [Mass ratio] 7.0 {ratio} [facility] Triglyceride [Mass/Vol] 280 mg/dL High NINF - 150 mg/dL [facility] Comment on above: Triglyceride Guidelines: <150 Desirable 150-199 Borderline 200-499 High >499 Very high Based on AHA Guidelines for fasting triglyceride, May 2012. Lipid Profileon 02-11-2024 Cholesterol [Mass/Vol] 192 mg/dL Normal 0-199 [facility] Comment on above: Result Comment: Cholesterol Guidelines: <200 Desirable 200-240 Borderline >240 Undesirable Performed By: #### B MP, TROPI, LIPR, MG #### [employer] [address] [place] [address] Ironing Machine Operator: Jean Carlos Abraham MD Cholesterol in HDL [Mass/Vol] 27 mg/dL Low >40 [facility] Comment on above: Result Comment: HDL Guidelines: <40 Undesirable 40-59 Borderline >59 Desirable Performed By: #### B MP, TROPI, LIPR, MG #### [facility] [employer] [address] [place] [address] Ironing Machine Operator: Jean Carlos Abraham MD Cholesterol in LDL [Mass/Vol] 109 mg/dL High 0-100 [facility] Comment on above: Result Comment: LDL Guidelines: <100 Desirable 100-129 Near to/above Desirable 130-159 Borderline >159 Undesirable Direct (measured) LDL and calculated LDL are not interchangeable tests. Performed By: #### B MP, TROPI, LIPR, MG #### [facility] [employer] [address] [place] [address] Ironing Machine Operator: Jean Carlos Abraham MD Cholesterol in VLDL [Mass/Vol] 56 mg/dL Normal [facility] Comment on above: Performed By: #### B MP, TROPI, LIPR, MG #### [employer] [address] [place] [address] Ironing Machine Operator: Jean Carlos Abraham MD Cholesterol.total/Victoria sterol in HDL [Mass ratio] 7.0 {ratio} Normal [facility] Comment on above: Performed By: #### B MP, TROPI, LIPR, MG #### [employer] [address] [place] [address] Ironing Machine Operator: Jean Carlos Abraham MD Triglyceride [Mass/Vol] 280 mg/dL High <150 [facility] Comment on above: Result Comment: Triglyceride Guidelines: <150 Desirable 150-199 Borderline 200-499 High >499 Very high Based on AHA Guidelines for fasting triglyceride, May 2012. Performed By: #### B MP, TROPI, LIPR, MG #### [employer] [address] [place], [place] [phone] Ironing Machine Operator: Jean Carlos Abraham MD Magnesiumon 02-11-2024 Magnesium [Mass/Vol] 2.3 mg/dL 1.6 - 2 .6 mg/dL [facility] Magnesium [Mass/Vol] 2.3 mg/dL Normal 1.6-2.6 [facility] Comment on above: Performed By: #### B MP, TROPI, LIPR, MG #### [employer] [facility] [place], [place] [phone] Ironing Machine Operator: Jean Carlos Abraham MD No Panel Informationon 02-10 Interpretation and review of laboratory results Abnormal [facility] POC Glucose Fingerstickon Glucose [Mass/Vol] 109 mg/dL High 65 - 105 mg/dL [facility] Interpretation and review of laboratory results Abnormal [facility] Troponinon 02-11-2024 Interpretation and review of laboratory results Abnormal [facility] Troponin I.cardiac High sensitivity method [Mass/Vol] 16 ng/L High 0 - 14 ng/L [facility] Comment on above: High Sensitivity Tro ponin values cannot be compared with other Troponin methodologies. [facility] Troponin, High Sens 16 ng/L High 0-14 [facility] Comment on above: Result Comment: High Sensitivity Troponin values cannot be compared with other Troponin methodologies. Performed By: #### T ROPI #### [facility] [place], [place] [phone] Ironing Machine Operator: Jean Carlos Abraham MD Troponin I.cardiac High sensitivity method [Mass/Vol] 16 ng/L High 0 - 14 ng/L [facility] Comment on above: High Sensitivity Tro ponin values cannot be compared with other Troponin methodologies. Troponin, High Sens 16 ng/L High 0-14 [facility] Comment on above: Result Comment: High Sensitivity Troponin values cannot be compared with other Troponin methodologies. Performed By: #### B MP, TROPI, LIPR, MG #### [employer] [address] [place] [address] Ironing Machine Operator: Jean Carlos Abraham MD Urinalysison 02-11-2024 Appearance (U) Clear Normal Clear [facility] Comment on above: Order Comment: Name Collection Type:: Clean-Voided Midstream Performed By: #### U A, UHCG, URDS ####[address] [address] [facility] Bilirubin,Urine Negative Normal Negative [facility] Comment on above: Order Comment: Name Collection Type:: Clean-Voided Midstream Performed By: #### U A, UHCG, URDS ####[address] [address] [facility] Color (U) Colorless Normal Yellow [facility] Comment on above: Order Comment: Name Collection Type:: Clean-Voided Midstream Performed By: #### U A, UHCG, URDS ####[address] [address] [facility] Glucose Ql (U) Normal Normal Normal [facility] Comment on above: Order Comment: Name Collection Type:: Clean-Voided Midstream Performed By: #### U A, UHCG, URDS ####[address] [address] [facility] Ketones Ql (U) Negative Normal Negative [facility] Comment on above: Order Comment: Name Collection Type:: Clean-Voided Midstream Performed By: #### U A, UHCG, URDS ####[address] [address] [facility] Leukocyte esterase Test strip Ql (U) Negative Normal Negative [facility] Comment on above: Order Comment: Name Collection Type:: Clean-Voided Midstream Performed By: #### U A, UHCG, URDS ####[address] [address] [facility] Nitrite,Urine Negative Normal Negative [facility] Comment on above: Order Comment: Name Collection Type:: Clean-Voided Midstream Performed By: #### U A, UHCG, URDS ####[place] [address] [place] [address] [facility] Occult Blood,Urine Negative Normal Negative [facility] Comment on above: Order Comment: Name Collection Type:: Clean-Voided Midstream Performed By: #### U A, UHCG, URDS ####[place] [place] [address] [facility] pH (U) 5.5 [pH] Normal 5.0-9.0 [facility] Comment on above: Order Comment: Name Collection Type:: Clean-Voided Midstream Performed By: #### U A, UHCG, URDS ####[place] [address] [place] [address] [facility] Protein,Urine Negative Normal Negative [facility] Comment on above: Order Comment: Name Collection Type:: Clean-Voided Midstream Performed By: #### U A, UHCG, URDS ####[place] [address] [facility] Specificy [place],Urine 1.021 Normal 1.001-1.030 [facility] Comment on above: Order Comment: Name Collection Type:: Clean-Voided Midstream Performed By: #### U A, UHCG, URDS ####[place] [address] [place] [address] [facility] Urobilinogen,Urine Normal Normal Normal [facility] Comment on above: Order Comment: Name Collection Type:: Clean-Voided Midstream Performed By: #### U A, UHCG, URDS ####[address] [address] [facility] B-Type Natriuretic Peptideon 02-10-2024 Natriuretic peptide B (Bld) [Mass/Vol] 19.0 pg/mL Normal 5-100 [facility] Comment on above: Result Comment: PERF ORMED BY: [facility] [address] [place] [id number] PATHOLOGIST VOTING MACHINE MECHANIC JESUS LEMA M.D. Performed By: #### C K, HS TROP, CBC, HEPATIC, BMP, LIPASE, BNP, PT, PTT #### [facility] [address] Basic Metabolic Panelon 07-0 Anion gap [Moles/Vol] 11.4 mmol/L Normal 6.0-15.0 [facility] Comment on above: Performed By: #### C K, HS TROP, CBC, HEPATIC, BMP, LIPASE, BNP, PT, PTT #### [facility] [address] Calcium [Mass/Vol] 10.3 mg/dL Normal 8.6-10.3 [facility] Comment on above: Performed By: #### C K, HS TROP, CBC, HEPATIC, BMP, LIPASE, BNP, PT, PTT #### [facility] [address] Chloride [Moles/Vol] 101 mmol/L Normal 98-107 [facility] Comment on above: Performed By: #### C K, HS TROP, CBC, HEPATIC, BMP, LIPASE, BNP, PT, PTT #### [facility] [address] CO2 [Moles/Vol] 28.6 mmol/L Normal 21.0-31.0 [facility] Comment on above: Performed By: #### C K, HS TROP, CBC, HEPATIC, BMP, LIPASE, BNP, PT, PTT #### [facility] [address] Creatinine [Mass/Vol] 1.81 mg/dL High 0.60-1.20 [facility] Comment on above: Performed By: #### C K, HS TROP, CBC, HEPATIC, BMP, LIPASE, BNP, PT, PTT #### [facility] [address] [facility] 53.93 Normal [facility] Comment on above: Performed By: #### C K, HS TROP, CBC, HEPATIC, BMP, LIPASE, BNP, PT, PTT #### [address] GFR/1.73 sq M.predicted MDRD (S/P/Bld) [Vol rate/Area] 38.855 mL/min/{1.73_m2} Normal [facility] Comment on above: Performed By: #### C K, HS TROP, CBC, HEPATIC, BMP, LIPASE, BNP, PT, PTT #### [facility] [address] Glucose [Mass/Vol] 105 mg/dL High 70-100 [facility] Comment on above: Result Comment: [facility] Glucose Reference Range is dependent on time and content of last meal. Glucose of more than 200 mg/dL in a nonstressed, ambulatory subject supports the diagnosis of Diabetes Mellitus. ADA recommended reference range Performed By: #### C K, HS TROP, CBC, HEPATIC, BMP, LIPASE, BNP, PT, PTT #### [facility] [address] Potassium [Moles/Vol] 4.0 mmol/L Normal 3.5-5.1 [facility] Comment on above: Performed By: #### C K, HS TROP, CBC, HEPATIC, BMP, LIPASE, BNP, PT, PTT #### [facility] [address] Sodium [Moles/Vol] 137 mmol/L Normal 136-145 [facility] Comment on above: Performed By: #### C K, HS TROP, CBC, HEPATIC, BMP, LIPASE, BNP, PT, PTT #### [facility] [address] Urea nitrogen [Mass/Vol] 17 mg/dL Normal 7-25 [facility] Comment on above: Performed By: #### C K, HS TROP, CBC, HEPATIC, BMP, LIPASE, BNP, PT, PTT #### [address] angio chest PE protocolon 02-10-2024 CT angio chest PE protocol [facility] [address] [address] [place] [address] CT Scan Report Signed Patient: Urmila Sosa MR#: [id number] : 1995 Acct:[id number] Age/Sex: 28 / F ADM Date: 02/10/24 Loc: ER Room: Type: [facility] ER Attending Dr: Copies to: Maryann Montalvo DO Ordering Provider: Maryann Montalvo DO Date of Service: 02/10/24 CT/CT angio chest PE protocol: f CTA Chest with PE protocol TECHNIQUE: Axial imaging with 2-D and 3-D reconstruction. 90cc of Isovue-[address] exam was performed using one or more the following dose reduction techniques: Automated exposure control, adjustment of the MA and/or Kv according to patient size, or use of the iterative reconstruction technique. History: Chest tightness. Aortic stenosis. History of bicuspid aortic valve. COMPARISON: None THYROID: Unremarkable TRACHEA AND BRONCHI: Patent ESOPHAGUS: Unremarkable. HEART: Within normal limits PERICARDIAL EFFUSION: None CORONARY ARTERY CALCIFICATION: None MEDIASTINUM: No adenopathy. No pneumoperitoneum. No mediastinal hematoma. PULMONARY BARBARA: No hilar mass or adenopathy is seen. THORACIC AORTA diameter of ascending thoracic aorta 4.7 cm. No dissection. No leak. PULMONARY EMBOLUS: None LUNG NODULE None LUNGS: Lungs are clear PLEURAL EFFUSION: None PNEUMOTHORAX: No pneumothorax seen. CHEST WALL: No abnormality AXILLA: Unremarkable BONY STRUCTURES Intact UPPER ABDOMEN: Hepatic steatosis. Mild splenomegaly. CT/CT angio chest PE protocol IMPRESSION: No acute pulmonary embolus. 4.7 cm diameter of the ascending thoracic aorta. Impression dictated by: Tyler Amaya M.D.02/10/2024 8:33 PM Dictation Location: [place] [address] Transcribed By: [facility] 02/10/242032 Dictated By: Tyler Amaya DO 02/10/242027 Signed By: 02/10/242032 Normal [facility] Complete Blood Count Auto Di ffon 02-10-2024 Basophils (Bld) [#/Vol] 0.2 10*3/uL Normal 0.0-0.2 [facility] Comment on above: Result Comment: PERF ORMED BY: [facility] [address] [place] [address] PATHOLOGIST VOTING MACHINE MECHANIC JESUS LEMA M.D. Performed By: #### C K, HS TROP, CBC, HEPATIC, BMP, LIPASE, BNP, PT, PTT #### [address] Basophils/100 WBC (Bld) 1.2 % Normal . T [facility] Comment on above: Performed By: #### C K, HS TROP, CBC, HEPATIC, BMP, LIPASE, BNP, PT, PTT #### [address] Eosinophils (Bld) [#/Vol] 0.3 10*3/uL Normal 0.0-0.45 [facility] Comment on above: Performed By: #### C K, HS TROP, CBC, HEPATIC, BMP, LIPASE, BNP, PT, PTT #### [address] Eosinophils/100 WBC (Bld) 2.1 % Normal . [facility] Comment on above: Performed By: #### C K, HS TROP, CBC, HEPATIC, BMP, LIPASE, BNP, PT, PTT #### [address] Erythrocyte distribution width (RBC) [Ratio] 13.3 % Normal 11.9-15.3 [facility] Comment on above: Performed By: #### C K, HS TROP, CBC, HEPATIC, BMP, LIPASE, BNP, PT, PTT #### [address] Hematocrit (Bld) [Volume fraction] 44.7 % Normal 34.0-46.4 [facility] Comment on above: Performed By: #### C K, HS TROP, CBC, HEPATIC, BMP, LIPASE, BNP, PT, PTT #### [address] Hemoglobin (Bld) [Mass/Vol] 14.8 g/dL Normal 11.8-15.4 [facility] Comment on above: Performed By: #### C K, HS TROP, CBC, HEPATIC, BMP, LIPASE, BNP, PT, PTT #### [address] Lymphocytes (Bld) [#/Vol] 2.2 10*3/uL Normal 1.00-4.8 [facility] Comment on above: Performed By: #### C K, HS TROP, CBC, HEPATIC, BMP, LIPASE, BNP, PT, PTT #### [address] Lymphocytes/100 WBC (Bld) 14.6 % Normal . [facility] Comment on above: Performed By: #### C K, HS TROP, CBC, HEPATIC, BMP, LIPASE, BNP, PT, PTT #### [address] MCH (RBC) [Entitic mass] 26.9 pg Normal 24.7-34.3 [facility] Comment on above: Performed By: #### C K, HS TROP, CBC, HEPATIC, BMP, LIPASE, BNP, PT, PTT #### [address] MCV (RBC) [Entitic vol] 81.1 fL Normal 80-100 [facility] Comment on above: Performed By: #### C K, HS TROP, CBC, HEPATIC, BMP, LIPASE, BNP, PT, PTT #### [address] Mean Corpuscular HGB Conc 33.2 g/dL Normal 32.0-35.0 [facility] Comment on above: Performed By: #### C K, HS TROP, CBC, HEPATIC, BMP, LIPASE, BNP, PT, PTT #### [address] Monocytes (Bld) [#/Vol] 1.0 10*3/uL High 0.0-0.8 [facility] Comment on above: Performed By: #### C K, HS TROP, CBC, HEPATIC, BMP, LIPASE, BNP, PT, PTT #### [address] Monocytes/100 WBC (Bld) 16.06 % Normal 0.00-20.00 [facility] Comment on above: Performed By: #### C K, HS TROP, CBC, HEPATIC, BMP, LIPASE, BNP, PT, PTT #### [address] Monocytes/100 WBC (Bld) 6.7 % Normal . [facility] Comment on above: Performed By: #### C K, HS TROP, CBC, HEPATIC, BMP, LIPASE, BNP, PT, PTT #### [address] Neutrophils (Bld) [#/Vol] 11.3 10*3/uL High 1.8-7.7 [facility] Comment on above: Performed By: #### C K, HS TROP, CBC, HEPATIC, BMP, LIPASE, BNP, PT, PTT #### [address] Neutrophils/100 WBC (Bld) 75.4 % Normal . [facility] Comment on above: Performed By: #### C K, HS TROP, CBC, HEPATIC, BMP, LIPASE, BNP, PT, PTT #### [address] NRBC% 0.2 /100{WBC} Normal 0-0.5 [facility] Comment on above: Performed By: #### C K, HS TROP, CBC, HEPATIC, BMP, LIPASE, BNP, PT, PTT #### [address] Platelet mean volume (Bld) [Entitic vol] 10.0 fL Normal 6.3-10.7 [facility] Comment on above: Performed By: #### C K, HS TROP, CBC, HEPATIC, BMP, LIPASE, BNP, PT, PTT #### [address] Platelets (Bld) [#/Vol] 285 10*3/uL Normal 150-450 [facility] Comment on above: Performed By: #### C K, HS TROP, CBC, HEPATIC, BMP, LIPASE, BNP, PT, PTT #### [address] RBC (Bld) [#/Vol] 5.50 10*6/uL High 3.60-5.00 [facility] Comment on above: Performed By: #### C K, HS TROP, CBC, HEPATIC, BMP, LIPASE, BNP, PT, PTT #### [facility] [address] WBC (Bld) [#/Vol] 14.9 10*3/uL High 3.8-11.6 [facility] Comment on above: Performed By: #### C K, HS TROP, CBC, HEPATIC, BMP, LIPASE, BNP, PT, PTT #### [facility] [address] Creatine Kinaseon 02-10-2024 CK [Catalytic activity/Vol] 108 U/L Normal 30-223 [facility] Comment on above: Performed By: #### C K, HS TROP, CBC, HEPATIC, BMP, LIPASE, BNP, PT, PTT ####[facility] ECG 12 lead ECGon 02-10-2024 ECG 12 lead ECG [facility] [address] [place] [address] Electrocardiograph Report Signed Patient: Urmila Sosa MR#: [id number] : 1995 Acct:[id number] Age/Sex: 28 / F ADM Date: 02/10/24 Loc: ER Room: Type: [facility] ER Attending Dr: Ordering Provider: Maryann Montalvo DO Date of Service: 02/10/2411/01/1507 ECG/ECG 12 lead ECG: Chest Pain Copies to: Test Reason : Blood Pressure : 112/065 mmHG Vent. Rate : 108 BPM Atrial Rate : 108 BPM P-R Int : 144 ms QRS Dur : 088 ms QT Int : 326 ms P-R-T Axes : 052 070 101 degrees QTc Int : 436 ms Sinus tachycardia Septal infarct , age undetermined Abnormal ECG No previous ECGs available Confirmed by AV DOWD MD, FACC ([id number]) on 02/12/2024 5:25:16 PM Referred By: Electronically Signed By:AV DOWD MD FACHong Transcribed By: MUS Signed By Av Dowd MD, FACC 02/12/24 1725 Normal [facility] Hepatic Panelon 02-10-2024 Albumin [Mass/Vol] 5.0 g/dL Normal 3.5-5.7 [facility] Comment on above: Performed By: #### C K, HS TROP, CBC, HEPATIC, BMP, LIPASE, BNP, PT, PTT #### [facility] [address] Albumin/Globulin [Mass ratio] 1.8 {ratio} Normal [facility] Comment on above: Performed By: #### C K, HS TROP, CBC, HEPATIC, BMP, LIPASE, BNP, PT, PTT #### [facility] [address] ALP [Catalytic activity/Vol] 78 U/L Normal 34-104 [facility] Comment on above: Performed By: #### C K, HS TROP, CBC, HEPATIC, BMP, LIPASE, BNP, PT, PTT #### [address] ALT [Catalytic activity/Vol] 97 U/L High 7-52 [facility] Comment on above: Performed By: #### C K, HS TROP, CBC, HEPATIC, BMP, LIPASE, BNP, PT, PTT #### [address] AST [Catalytic activity/Vol] 43 U/L High 13-39 [facility] Comment on above: Performed By: #### C K, HS TROP, CBC, HEPATIC, BMP, LIPASE, BNP, PT, PTT #### [address] Bilirubin [Mass/Vol] 0.5 mg/dL Normal 0.3-1.0 [facility] Comment on above: Performed By: #### C K, HS TROP, CBC, HEPATIC, BMP, LIPASE, BNP, PT, PTT #### [facility] [address] Bilirubin,Indirect 0.4 mg/dL Normal [facility] Comment on above: Performed By: #### C K, HS TROP, CBC, HEPATIC, BMP, LIPASE, BNP, PT, PTT #### [address] Bilirubin.indirect [Mass/Vol] 0.10 mg/dL Normal 0.03-0.18 [facility] Comment on above: Performed By: #### C K, HS TROP, CBC, HEPATIC, BMP, LIPASE, BNP, PT, PTT #### [address] Globulin (S) [Mass/Vol] 2.8 g/dL Normal T [facility] Comment on above: Performed By: #### C K, HS TROP, CBC, HEPATIC, BMP, LIPASE, BNP, PT, PTT #### [address] Protein [Mass/Vol] 7.8 g/dL Normal 6.4-8.9 [facility] Comment on above: Performed By: #### C K, HS TROP, CBC, HEPATIC, BMP, LIPASE, BNP, PT, PTT #### [address] Lipaseon 02-10-2024 Lipase [Catalytic activity/Vol] 14.0 U/L Normal 11.0-82.0 [facility] Comment on above: Result Comment: PERF ORMED BY: [place] [address] PATHOLOGIST VOTING MACHINE MECHANIC JESUS LEMA M.D. Performed By: #### C K, HS TROP, CBC, HEPATIC, BMP, LIPASE, BNP, PT, PTT #### [address] Partial Thromboplastin Timeo n 02-10-2024 aPTT Coag (Bld) [Time] 33.0 s Normal 25.1-36.5 Th e [facility] Comment on above: Result Comment: A matocrit value greater than 55% may lead to inaccurate results in coagulation testing. Patients having hematocrit values >55% require a special collection tube for coagulation studies. Please contact the laboratory at [phone] for redraw instructions. PERFORMED BY: [address] [place] [address] PATHOLOGIST VOTING MACHINE MECHANIC JESUS LEMA M.D. Performed By: #### C K, HS TROP, CBC, HEPATIC, BMP, LIPASE, BNP, PT, PTT #### [address] Prothrombin Time INRon 02-09 INR Coag (PPP) [Relative time] 1.0 {INR} Normal [facility] Comment on above: Result Comment: INR Therapeutic Range A) Pre- and Peroperative OAT started two weeks before surgery. NOT HIP SURGERY: 1.5 - 2.5 HIP SURGERY: 2 - 3 B) Primary and secondary prevention of venous THROMBOSIS: 2 - 3 C) Active venous thrombosis, pulmonary embolism and prevention of recurrent venous thrombosis: 2 - 3 D) Prevention of arterial thromboembolism including patients with mechanical heart valves: 3 - 4.5 Performed By: #### C K, HS TROP, CBC, HEPATIC, BMP, LIPASE, BNP, PT, PTT #### [address] PT Coag (PPP) [Time] 11.9 s Normal 9.0-12.9 [facility] Comment on above: Result Comment: A he matocrit value greater than 55% may lead to inaccurate results in coagulation testing. Patients having hematocrit values >55% require a special collection tube for coagulation studies. Please contact the laboratory at [phone] for redraw instructions. Performed By: #### C K, HS TROP, CBC, HEPATIC, BMP, LIPASE, BNP, PT, PTT #### [address] Troponin I High Sensitivityo n 02-10-2024 Troponin I High Sensitivity 130.6 pg/mL Off scale high 0.0-15.0 [facility] Comment on above: Result Comment: Crit ical Result : Called to and read back by: SUSIE ALLEN at: 02/10/2024 20:32:55 by:TONY PERFORMED BY: [place] [address] PATHOLOGIST VOTING MACHINE MECHANIC JESUS LEMA M.D. Performed By: #### H S TROP #### [facility] [address] Troponin I High Sensitivity 98.5 pg/mL Off scale high 0.0-15.0 [facility] Comment on above: Result Comment: Crit ical Result : Called to and read back by: CHRISTOPHER DEAN at: 02/10/2024 19:12:01 by:LFM PERFORMED BY: [place] [address] PATHOLOGIST VOTING MACHINE MECHANIC JESUS LEMA M.D. Performed By: #### C K, HS TROP, CBC, HEPATIC, BMP, LIPASE, BNP, PT, PTT ####[facility] [address] [place] [address] XR chest 2V*on 02-10-2024 XR chest 2V* [facility] [address] [place] [address] XRay Report Signed Patient: Urmila Sosa MR#: [id number] : 1995 Acct:[id number] Age/Sex: 28 / F ADM Date: 02/10/24 Loc: ER Room: Type: PRE ER Attending Dr: Copies to: ROSA ISELA Gaxiola DO Ordering Provider: Abad Carlisle PA-C Date of Service: 02/10/24 XR/XR chest 2V*: Chest Pain Plain film chest 2 view HISTORY: Dyspnea with exertion COMPARISON: None FINDINGS: SUPPORT DEVICES: None POSTSURGICAL CHANGES: None HEART: Within normal limits PULMONARY BARBARA: Within normal limits MEDIASTINUM: Unremarkable LUNGS AND PLEURA: No acute lung process, pleural effusion or pneumothorax identified. BONY STRUCTURES: Intact ADDITIONAL FINDINGS None XR/XR chest 2V* IMPRESSION: No acute process. Impression dictated by: Tyler Amaya M.D.02/10/2024 5:50 PM Dictation Location: [place] [address] Transcribed By: [facility] 02/10/241749 Dictated By: Tyler Amaya DO 02/10/241748 Signed By: 02/10/241749 Normal [facility] XR KNEE LEFT (3 VIEWS)on No acute abnormality identified. [facility] EXAMINATION: THREE XRAY VIEWS OF THE LEFT KNEE 12/15/2022 5:46 pm COMPARISON: None. HISTORY: ORDERING SYSTEM PROVIDED HISTORY: pain TECHNOLOGIST PROVIDED HISTORY: pain FINDINGS: No stress or traumatic fractures are detected. No joint effusion is found. Periarticular soft tissues are unremarkable in appearance. [facility] Gaetano Patel MD - 12/15/2022 EXAMINATION: THREE XRAY VIEWS OF THE LEFT KNEE 12/15/2022 5:46 pm COMPARISON: None. HISTORY: ORDERING SYSTEM PROVIDED HISTORY: pain TECHNOLOGIST PROVIDED HISTORY: pain FINDINGS: No stress or traumatic fractures are detected. No joint effusion is found. Periarticular soft tissues are unremarkable in appearance. IMPRESSION: No acute abnormality identified. [facility] [employer] [facility] Phone: Radiology Study observation (narrative) [employer] Phone: XR KNEE LEFT (3 VIEWS)Ordere d By: Gaetano Patel on 12-15-2022 [facility] Phone: CHLAMYDIA/GONOCOCCUS LIZBETH (SW AB/URINE/PAPon 09-04-2022 Chlamydia trachomatis, LIZBETH Negative Normal Negative [facility] Comment on above: Performed By: #### C T/NGNA #### [facility] [address] [place] [address] Dr. Alek Barnes Neisseria gonorrhoeae, LIZBETH Negative Normal Negative [facility] Comment on above: Performed By: #### C T/NGNA #### [facility] [address] [place] [address] [address] Alek Barnes VAGINITIS/VAGINOSIS DNA PROB Alberto 09-04-2022 Vianey species Negative Normal Negative [facility] Comment on above: Performed By: #### V AGINT #### [facility] [address] [place] [address] [address] Alek Barnes Gardnerella vaginalis Positive Abnormal Negative [facility] Comment on above: Performed By: #### V AGINT #### [facility] [address] [place] [address] [address] Alek Barnes Trichomonas vaginalis Negative Normal Negative [facility] Comment on above: Performed By: #### V AGINT #### [facility] [address] [place] [address] [address] Alek Barnes EKG 12 LeadOrdered By: Comfort Desir hmad on 04-01-2022 Atrial Rate 64 BPM [employer] Work Phone: P [place] 37 degrees [employer] Work Phone: P-R Interval 138 ms [employer] Work Phone: Q-T Interval 398 ms [employer] Work Phone: QRS Duration 96 ms [employer] Work Phone: QTc Calculation (Bazett) 410 ms [employer] Work Phone: R [place] 2 degrees [employer] Work Phone: T [place] 47 degrees [employer] Work Phone: Ventricular Rate 64 BPM [facility] [employer] [employer] Work Phone: [employer] Work Phone: EKG 12 Leadon 04-01-2022 Normal sinus rhythm Septal infarct (cited on or before 31-DEC-2020) Nonspecific ST and T wave abnormality Abnormal ECG When compared with ECG of 31-DEC-2020 21:45, Nonspecific T wave abnormality, worse in Inferior leads Confirmed by Comfort Licona MD ([id number]) on 04/01/2022 7:48:19 PM [facility] RADIOLOGY Comfort Licona MD - 04/01/2022 Normal sinus rhythm Septal infarct (cited on or before 31-DEC-2020) Nonspecific ST and T wave abnormality Abnormal ECG When compared with ECG of 31-DEC-2020 21:45, Nonspecific T wave abnormality, worse in Inferior leads Confirmed by Comfort Licona MD ([id number]) on 04/01/2022 7:48:19 PM [employer] Work Phone: Microscopic Urinalysison - [facility] Bacteria, UA 2+ Abnormal None [facility] Epithelial Cells UA 5 TO 10 [facility] Interpretation and review of laboratory results Abnormal [facility] Mucus, UA 3+ Abnormal None [facility] RBC, UA 0 TO 2 [facility] Trichomonas, UA PRESENCE NOTED Abnormal None [facility] WBC, UA 10 TO [address] [facility] , Urineon 2 Beta HCG ( test) Ql (U) Negative NEGATIVE [facility] Comment on above: Specimens with hCG l evels near the threshold of the test (25 mIU/mL) may give a negative or indeterminate result. In such cases, another test should be performed with a new specimen in 48-72 hours. If early is suspected clinically in this setting, correlation with quantitative serum b-hCG level is suggested. [employer] has confirmed the use of plasma for this test. This has not been cleared or approved by the U.S. Food and Drug Administration. The FDA has determined that such clearance is not necessary. [facility] Urinalysis with Reflex to Cu ltureon 03-05-2022 Bilirubin Urine Negative NEGATIVE [facility] Color, UA Yellow Yellow [facility] Glucose, Ur Negative NEGATIVE [facility] Interpretation and review of laboratory results Abnormal [facility] Ketones Ql (U) Negative NEGATIVE [facility] Leukocyte esterase Test strip Ql (U) SMALL Abnormal NEGATIVE [facility] Nitrite, Urine Negative NEGATIVE [facility] pH, UA 6.0 5 - 9 [facility] Protein, UA Negative NEGATIVE [facility] Specific [place], UA 1.025 High 1.01 - 1.02 [facility] Turbidity UA Clear Clear [facility] Urine Hgb Negative NEGATIVE [facility] Urobilinogen, Urine Normal Normal [facility] Wet Prep, Genitalon 03-05-20 22 Direct Exam TRICHOMONAS Abnormal [facility] Direct Exam NO YEAST OBSERVED [facility] Direct Exam NO CLUE CELLS SEEN [facility] Interpretation and review of laboratory results Abnormal [facility] Specimen Description .VAGINA [facility] Complete Blood Count with Au to Diffon 09-23-2021 Basophils (Bld) [#/Vol] 0.12 10*3/uL Normal 0.00-0.20 [facility] [employer] Comment on above: Performed By: #### C MP, CBCAD #### [facility] [address] [place], [place] [id number] Basophils/100 WBC (Bld) 1.1 % Normal [facility] Comment on above: Performed By: #### C BETSY, CBCAD #### [facility] [address] [place], [place] [id number] Eosinophils (Bld) [#/Vol] 0.42 10*3/uL Normal 0.02-0.50 [facility] It Portfolio Manager Comment on above: Performed By: #### C MP, CBCAD #### [facility] [address] [place], [place] [id number] Eosinophils/100 WBC (Bld) 3.8 % Normal [facility] It Portfolio Manager Comment on above: Performed By: #### C BETSY, CBCAD #### [facility] [address] [place], [place] [id number] Erythrocyte distribution width (RBC) [Ratio] 14.1 % Normal 11.0-15.0 [facility] It Portfolio Manager Comment on above: Performed By: #### C MP, CBCAD #### [facility] [address] [place], [place] [id number] Hematocrit (Bld) [Volume fraction] 39.6 % Normal 35.0-47.0 [facility] It Portfolio Manager Comment on above: Performed By: #### C MP, CBCAD #### [facility] [address] [place], [place] [id number] Hemoglobin (Bld) [Mass/Vol] 12.7 g/dL Normal 11.6-15.5 [facility] It Portfolio Manager Comment on above: Performed By: #### C MP, CBCAD #### [facility] [address] [place], [place] [id number] Lymphocytes (Bld) [#/Vol] 2.4 10*3/uL Normal 0.9-3.9 [facility] Comment on above: Performed By: #### C MP, CBCAD #### [facility] [address] [place], [place] [id number] Lymphocytes/100 WBC (Bld) 21.8 % Normal [facility] Comment on above: Performed By: #### C MP, CBCAD #### [facility] [address] [place], [place] [id number] MCH (RBC) [Entitic mass] 25.9 pg Low 27.0-33.0 [facility] Comment on above: Performed By: #### C MP, CBCAD #### [facility] [address] [place], [place] [id number] MCHC (RBC) [Mass/Vol] 32.1 g/dL Normal 32.0-36.0 [facility] Comment on above: Performed By: #### C MP, CBCAD #### [facility] [address] [place], [place] [id number] MCV (RBC) [Entitic vol] 81 fL Normal 80-100 [facility] Comment on above: Performed By: #### C MP, CBCAD #### [facility] [address] [place], [place] [id number] Monocytes (Bld) [#/Vol] 0.8 10*3/uL Normal 0.2-0.9 [facility] Comment on above: Performed By: #### C MP, CBCAD #### [facility] [address], [place] [id number] Monocytes/100 WBC (Bld) 7.0 % Normal [facility] Comment on above: Performed By: #### C MP, CBCAD #### [facility] [address], [place] [id number] Neutrophils (Bld) [#/Vol] 7.2 10*3/uL Normal 1.5-7.8 [facility] Comment on above: Performed By: #### C MP, CBCAD #### [facility] [address], [place] [id number] Neutrophils/100 WBC (Bld) 65.4 % Normal [facility] Comment on above: Performed By: #### C MP, CBCAD #### [facility] [address], [place] [id number] Platelet mean volume (Bld) [Entitic vol] 12.80 fL High 7.50-12.50 [facility] Comment on above: Performed By: #### C MP, CBCAD #### [facility] [address], [place] [id number] Platelets (Bld) [#/Vol] 217 10*3/uL Normal 140-400 [facility] Comment on above: Performed By: #### C MP, CBCAD #### [facility] [address], [place] [id number] RBC (Bld) [#/Vol] 4.91 10*6/uL Normal 3.90-5.20 [facility] Comment on above: Performed By: #### C MP, CBCAD #### [facility] [address], [place] [id number] RDW-SD 41.4 fL Normal 37.0-50.0 [facility] Comment on above: Performed By: #### C MP, CBCAD #### [facility] [address], [place] [id number] WBC (Bld) [#/Vol] 11.0 10*3/uL Normal 3.8-11.[address] [facility] Specialist Comment on above: Performed By: #### C MP, CBCAD #### [facility] [address], [place] [id number] Comprehensive Metabolic Pane [facility] 09-23-2021 Albumin [Mass/Vol] 4.3 g/dL Normal 3.6-5.1 [facility] Comment on above: Performed By: #### C MP, CBCAD #### [facility] [address], [place] [id number] Albumin/Globulin [Mass ratio] 2.4 {ratio} Normal 1.0-2.5 [facility] Specialist Comment on above: Performed By: #### C MP, CBCAD #### [facility] [address], [place] [id number] ALP [Catalytic activity/Vol] 92 U/L Normal 35-119 [facility] Comment on above: Performed By: #### C MP, CBCAD #### [facility] [address], [place] [id number] ALT [Catalytic activity/Vol] 18 U/L Normal 6-33 [facility] Comment on above: Result Comment: 07/10 Female reference range changed. Performed By: #### C MP, CBCAD #### [facility] [address], [place] [id number] Anion gap [Moles/Vol] 17 mmol/L Normal 12-20 [facility] Comment on above: Result Comment: Effe ctive 08/15/2019 reference range changed. Performed By: #### C MP, CBCAD #### [facility] [address], [place] [id number] AST [Catalytic activity/Vol] 15 U/L Normal 9-34 [facility] Comment on above: Performed By: #### C MP, CBCAD #### [facility] [address], [place] [id number] BUN/CREA 15 Ratio Normal 6-22 [facility] Comment on above: Performed By: #### C MP, CBCAD #### [facility] [address], [place] [id number] Calcium [Mass/Vol] 9.6 mg/dL Normal 8.6-10.2 [facility] Comment on above: Performed By: #### C MP, CBCAD #### [facility] [address], [place] [id number] Chloride [Moles/Vol] 106 mmol/L Normal 98-107 [facility] Comment on above: Performed By: #### C MP, CBCAD #### [facility] [address], [place] [id number] CO2 [Moles/Vol] 23 mmol/L Normal 20-31 [facility] Comment on above: Performed By: #### C MP, CBCAD #### [facility] [address], [place] [id number] Creatinine [Mass/Vol] 1.0 mg/dL Normal 0.6-1.4 [facility] [employer] Comment on above: Performed By: #### C MP, CBCAD #### [facility] [address], [place] [id number] eGFRAA 83 mL/min/1.73m2 Normal >60 [facility] Specialist Comment on above: Performed By: #### C MP, CBCAD #### [facility] [address], [place] [id number] eGFRNAA 68 mL/min/1.73m2 Normal >60 [facility] Specialist Comment on above: Performed By: #### C MP, CBCAD #### [facility] [address], [place] [id number] Globulin (S) [Mass/Vol] 1.8 g/dL Low 1.9-3.7 [facility] [employer] Comment on above: Performed By: #### C MP, CBCAD #### [facility] [address], [place] [id number] Glucose [Mass/Vol] 96 mg/dL Normal 65-99 [facility] It Portfolio Manager Comment on above: Result Comment: For FASTING Glucose --- ADA reference ranges: Normal 65-99 mg/dl Prediabetes 100-125 Diabetes >/= 126 Performed By: #### C MP, CBCAD #### [facility] [address], [place] [id number] Potassium [Moles/Vol] 4.2 mmol/L Normal 3.5-5.5 [facility] [employer] Comment on above: Performed By: #### C MP, CBCAD #### [facility] [address], [place] [id number] Protein [Mass/Vol] 6.1 g/dL Normal 6.1-8.1 [facility]ney [facility] [place] [employer] Comment on above: Performed By: #### C MP, CBCAD #### [facility] [address], [place] [id number] Sodium [Moles/Vol] 142 mmol/L Normal 135-146 Rodney [facility] [place] [employer] Comment on above: Performed By: #### C MP, CBCAD #### [facility] [address], [place] [id number] TBIL <0.3 Normal [facility] It Portfolio Manager Comment on above: Performed By: #### C MP, CBCAD #### [facility] [address], [place] [id number] Urea nitrogen [Mass/Vol] 15 mg/dL Normal 7-25 [facility] It [employer] Manager Comment on above: Performed By: #### C MP, CBCAD #### [facility] [address], [place] [id number] Basic Metabolic Panel w/ Ref amy to MGon 09-21-2021 Anion gap [Moles/Vol] 13 mmol/L 9 - 17 mmol/L [facility] [employer] Calcium [Mass/Vol] 9.0 mg/dL 8.6 - 10. 4 mg/dL [employer] Chloride [Moles/Vol] 105 mmol/L 98 - 10 7 mmol/L [employer] CO2 [Moles/Vol] 21 mmol/L 20 - 31 mmol/L [employer] Creatinine [Mass/Vol] 0.97 mg/dL High 0.50 - 0.90 mg/dL [facility] GFR >60 >60 mL/min [facility] [employer] GFR Non- >60 >60 mL/min [facility] Glucose [Mass/Vol] 109 mg/dL High 70 - 99 mg/dL [facility] [employer] Interpretation and review of laboratory results Abnormal [facility] Potassium [Moles/Vol] 3.9 mmol/L 3.7 - 5.3 mmol/L [employer] Sodium [Moles/Vol] 139 mmol/L 135 - 144 mmol/L [facility] [employer] Urea nitrogen (BldV) [Mass/Vol] 15 mg/dL 6 - 20 mg/dL [facility] [employer] Urea nitrogen/Creatinine (Bld) [Mass ratio] 15 [facility] CTA LOWER EXTREMITY LEFT W W O [...] trifurcation with patent arteries into the foot. [facility] Jhonatan Solano MD - 09/21/2021 EXAMINATION: CTA [...] as described with mild suprapatellar joint effusion. [employer] Work Phone: Radiology Study observation (narrative) [employer] Work Phone: CTA LOWER EXTREMITY LEFT W W O CONTRASTOrdered By: Jhonatan Solano on 09-21-2021 [employer] Work Phone: HCG Qualitative, Serumon hCG Qual Negative NEGATIVE [employer] Comment on above: Specimens with hCG l evels near the threshold of the test (25 mIU/mL) may give a negative or indeterminate result. In such cases, another test should be performed with a new specimen in 48-72 hours. If early is suspected clinically in this setting, correlation with quantitative serum b-hCG level is suggested. [employer] has confirmed the use of plasma for this test. This has not been cleared or approved by the U.S. Food and Drug Administration. The FDA has determined that such clearance is not necessary. [facility] - Chemistry and C hemistry - challengeon 09-21-2021 GFR/1.73 sq M.predicted MDRD (S/P/Bld) [Vol rate/Area] [facility] Comment on above: Average GFR for 20-2 9 years old: 116 mL/min/1.73sq m Chronic Kidney Disease: <60 mL/min/1.73sq m Kidney failure: <15 mL/min/1.73sq m eGFR calculated using average adult body mass. Additional eGFR calculator available at: http://www.[employer]/multiple_crcl_2012.htm Stage 1: Some kidney damage normal GFR [...] Cici Valentino DO 09/21/21 Final result Normal [facility] CT CHEST PULMONARY EMBOLISM W CONTRASTOrdered By: [...] of the finding is unclear.. Fatty liver. [employer] Work Phone: EXAMINATION: CTA OF THE CHEST [...] No acute bone or soft tissue abnormality. [employer] Phone: Jalen, Rust Incoming Radiant Results From [employer] - 01/01/2021 12:32 AM EDT EXAMINATION: CTA [...] of the finding is unclear.. Fatty liver. [employer] Phone: [employer] Phone: Brain Natriuretic PeptideOrd ered By: Melita Hernandes on 12-31-2020 BNP Interpretation Pro-BNP Reference Range: [employer] Phone: Comment on above: Rule Out: <300 [place]ge[place] Zone: Age <50 300-450 Age 50-75 300-900 Age >75 300-1800 Usually represents mild to moderate HF but other cardiopulmonary causes cannot be ruled out. Rule In: Age <50 >450 Age 50-75 >900 Age >75 >1800 Natriuretic peptide B (Bld) [Mass/Vol] 76 pg/mL <300 [employer] Phone: Comment on above: Pro-BNP results jackson ot be compared to BNP results. CBC Auto DifferentialOrdered By: Melita Hernandes on 12-31-2020 [employer] # 0.36 [employer] Work Phone: Absolute Immature Granulocyte 0.07 [employer] Phone: Absolute Lymph # 2.59 [employer] [facility] Work Phone: Absolute Beckham # 1.05 Vapother[employer]lynsey Padilla [facility] Work Phone: Basophils (Bld) [#/Vol] 0.09 10*3/uL [employer] Work Phone: Basophils/100 WBC (Bld) 1 % 0 - 2 % M [employer] Work Phone: Differential Type NOT REPORTED [employer] Phone: Eosinophils/100 WBC (Bld) 2 % 1 - 4 % [employer] Phone: Hematocrit (Bld) [Volume fraction] 42.7 % 36.3 - 47.1 % [employer] Phone: Hemoglobin.gastrointest inal spec 1 Ql (Stl) 14.1 g/dL 11.9 - 15.1 g/dL [employer] Work Phone: Immature granulocytes/100 WBC (Bld) 0 % 0 [employer] Phone: Interpretation and review of laboratory results Abnormal [employer] Phone: Lymphocytes/100 WBC (Bld) 15 % Low 24 - 43 % [employer] Phone: MCH (RBC) [Entitic mass] 26.5 pg 25.2 - 33.5 pg [employer] Work Phone: MCHC (RBC) [Mass/Vol] 33.0 g/dL 28.4 - 34.8 g/dL [employer] Phone: MCV (RBC) [Entitic vol] 80.3 fL Low 82.6 - 102.9 fL [employer] Phone: Monocytes/100 WBC (Bld) 6 % 3 - 12 % M [employer] Work Phone: NRBC Automated 0.0 0.0 per 100 WBC [employer] Phone: Platelet distribution width (Bld) [Ratio] 12.5 % 11.8 - 14.4 % [employer] Phone: Platelet Estimate NOT REPORTED [employer] Phone: Platelet mean volume (Bld) [Entitic vol] 11.3 fL 8.1 - 13.5 fL [employer] Phone: Platelets (Bld) [#/Vol] 273 10*3/uL [employer] Phone: RBC (Bld) [#/Vol] 5.32 10*6/uL High 3.95 - 5.1 1 m/uL [employer] Phone: RBC (Bld) [#/Vol] NOT REPORTED [employer] Phone: Segmented neutrophils/100 WBC (Bld) 76 % High 36 - 65 % [employer] Phone: Segs Absolute 12.63 High [employer] Work Phone: WBC (Bld) [#/Vol] 16.8 10*3/uL High [employer] Phone: WBC (Bld) [#/Vol] NOT REPORTED [employer] Phone: [employer] Phone: COVID-19, RapidOrdered By: Ruth Hernnades on 12-31-2020 SARS-CoV-2 (COVID-19) RNA LIZBETH+probe Ql (Unsp spec) Not detected Not Detected [employer] Phone: Comment on above: Rapid NAAT: The [...] management decisions. Fact sheet for Healthcare Providers: https://www.fda.gov/media/976466/download Fact sheet for Patients: https://www.fda.gov/media/973074/download Methodology: Isothermal Nucleic Acid Amplification Specimen Description .NASOPHARYNGEAL SWAB [employer] Phone: [employer] Phone: Comprehensive Metabolic Pane lOrdered By: Melita Hernandes on 12-31-2020 Albumin [Mass/Vol] 4.1 g/dL 3.5 - 5.2 g/dL [employer] Phone: Albumin/Globulin [Mass ratio] 1.4 {ratio} [employer] Phone: ALP (Bld) [Catalytic activity/Vol] 100 U/L 35 - 104 U/L [employer] Phone: ALT [Catalytic activity/Vol] 32 U/L 5 - 33 U/L [employer] Phone: Anion gap [Moles/Vol] 12 mmol/L 9 - 17 mmol/L [employer] Phone: AST [Catalytic activity/Vol] 40 U/L High <32 [employer] Phone: Bilirubin [Mass/Vol] 0.22 mg/dL Low 0.3 - 1 .2 mg/dL [employer] Phone: Calcium [Mass/Vol] 9.4 mg/dL 8.6 - 10. 4 mg/dL [employer] Phone: Chloride [Moles/Vol] 101 mmol/L 98 - 10 7 mmol/L [employer] Phone: CO2 [Moles/Vol] 23 mmol/L 20 - 31 mmol/L [employer] Phone: Creatinine [Mass/Vol] 0.86 mg/dL 0.50 - 0.90 mg/dL [employer] Phone: Free PSA/Total PSA [Mass fraction] 7.0 g/dL 6.4 - 8.3 g/dL [employer] Phone: GFR >60 >60 mL/min [employer] Phone: GFR Non- >60 >60 mL/min [employer] Phone: Glucose [Mass/Vol] 105 mg/dL High 70 - 99 mg/dL [employer] Phone: Interpretation and review of laboratory results Abnormal [employer] Phone: Potassium [Moles/Vol] 5.5 mmol/L High 3.7 - 5.3 mmol/L [employer] Phone: Sodium [Moles/Vol] 136 mmol/L 135 - 144 mmol/L [employer] Phone: Urea nitrogen (BldV) [Mass/Vol] 15 mg/dL 6 - 20 mg/dL [employer] Phone: Urea nitrogen/Creatinine (Bld) [Mass ratio] 17 [employer] Phone: [employer] Phone: D-dimer, quantitativeOrdered By: Melita Hernandes on 12-31-2020 D-Dimer, Quant 0.48 [employer] Phone: Comment on above: When combined with [...] more prevalent in patients with distal DVT. [employer] Phone: EKG 12 LeadOrdered By: Melita Hernandes on 12-31-2020 Atrial Rate 88 BPM [employer] Phone: P [place] 32 degrees [employer] Phone: P-R Interval 142 ms [employer] Phone: Q-T Interval 348 ms [employer] Phone: QRS Duration 88 ms [employer] Phone: QTc Calculation (Bazett) 421 ms [employer] Phone: R [place] 3 degrees [employer] Phone: T [place] 107 degrees [employer] Phone: Ventricular Rate 88 BPM [employer] Phone: Normal sinus rhythm Septal infarct (cited on or before 31-DEC-2020) T wave abnormality, consider lateral ischemia Abnormal ECG When compared with ECG of 11-APR-2014 13:45, No significant change was found Confirmed by DENIS MORRIS ([id number]) on 12/31/2020 11:48:53 PM [employer] Phone: Muna Rao Incoming Ekg Results From [employer] - 12/31/2020 11:48 PM EDT Normal sinus rhythm Septal infarct (cited on or before 31-DEC-2020) T wave abnormality, consider lateral ischemia Abnormal ECG When compared with ECG of 11-APR-2014 13:45, No significant change was found Confirmed by DENIS MORRIS ([id number]) on 12/31/2020 11:48:53 PM [employer] Phone: [employer] Phone: Laboratory - Chemistry and C hemistry - challengeOrdered By: Melita Hernandes on 12-31-2020 GFR/1.73 sq M.predicted MDRD (S/P/Bld) [Vol rate/Area] [employer] Phone: Comment on above: Average GFR for 20-2 9 years old: 116 mL/min/1.73sq m Chronic Kidney Disease: <60 mL/min/1.73sq m Kidney failure: <15 mL/min/1.73sq m eGFR calculated using average adult body mass. Additional eGFR calculator available at: http://www.[employer]/multiple_crcl_2012.htm Stage 1: Some kidney damage normal GFR Stage 2: Mild kidney damage GFR 60-89 Stage 3: Moderate kidney damage GFR 30-59 Stage 4: Severe kidney damage GFR 15-29 Stage 5: Severe kidney damage GFR <15 ESRD - chronic treatment by dialysis or transplant Microscopic UrinalysisOrdere d By: Melita Hernandes on 12-31-2020 - [employer] Work Phone: Amorphous, UA NOT REPORTED None [facility] Work Phone: Bacteria, UA TRACE Abnormal None [employer] Work Phone: Casts UA NOT REPORTED /LPF [employer] Work Phone: Crystals, UA NOT REPORTED None /HPF [facility] Work Phone: Epithelial Cells UA 0 TO 2 [employer] Work Phone: Interpretation and review of laboratory results Abnormal [employer] Work Phone: Mucus, UA NOT REPORTED None [employer] Phone: Other Observations UA NOT REPORTED NOT REQ. M [facility] [employer] Work Phone: RBC, UA 0 TO 2 [employer] Phone: Renal Epithelial, UA NOT REPORTED 0 /HPF Me [facility] [employer] Work Phone: Trichomonas, UA NOT REPORTED None [facility] Work Phone: WBC, UA 0 TO 2 [employer] Phone: Yeast, UA NOT REPORTED None [employer] Phone: [employer] Phone: No Panel InformationOrdered By: Melita Hernandes on 12-31-2020 [employer] Phone: SPECIMEN REJECTIONOrdered By : Melita Hernandes on 12-31-2020 - NOT REPORTED [employer] Phone: Ordered Test CDP [employer] Phone: Reason for Rejection Unable to perform testing: Specimen clotted. [employer] Phone: Specimen source Nom (Unsp spec) .BLOOD [employer] Phone: [employer] Phone: TroponinOrdered By: Melita maharaj on 12-31-2020 Troponin Interp NOT REPORTED [facility] Work Phone: Troponin T NOT REPORTED <0.03 ng/mL [facility] [employer] Work Phone: Troponin, High Sensitivity <6 0 - 14 ng/L [employer] Phone: Comment on above: High Sensitivity Troponin values cannot be compared with other Troponin methodologies. Patients with high levels of Biotin oral intake (i.e >5mg/day) may have falsely decreased Troponin levels. Samples collected within 8 hours of biotin intake may require additional information for diagnosis. Urinalysis Reflex to Culture Ordered By: Melita Hernandes on 12-31-2020 Bilirubin Urine Negative NEGATIVE [facility] Work Phone: Color, UA YELLOW YELLOW [facility] [employer] Work Phone: Glucose, Ur Negative NEGATIVE [facility] [employer] Work Phone: Interpretation and review of laboratory results Abnormal [facility] [employer] Work Phone: Ketones Ql (U) Negative NEGATIVE [facility] Work Phone: Leukocyte esterase Test strip Ql (U) Negative NEGATIVE [facility] [employer] Work Phone: Nitrite, Urine Negative NEGATIVE [facility] Work Phone: pH, UA 6.[address] [facility] [employer] Work Phone: Protein, UA Negative NEGATIVE [facility] [employer] Work Phone: Specific [place], UA 1.025 High [facility] [employer] Work Phone: Turbidity UA CLEAR CLEAR [facility] [employer] Work Phone: Urinalysis Comments NOT REPORTED [facility] [employer] Work Phone: Urine Hgb Negative NEGATIVE [facility] [employer] Work Phone: Urobilinogen, Urine Normal Normal [facility] [employer] Phone: [facility] [employer] Work Phone: XR CHEST PORTABLEOrdered By: Melita Hernandes on 12-31-2020 Clear lungs. Cardiomegaly. No acute cardiopulmonary abnormality. [employer] Phone: EXAMINATION: ONE XRAY VIEW OF THE [...] normal limits. No significant thoracic osseous abnormality. [employer] Phone: Jalen, Mh[employer] Incoming Radiant Results From [employer] - 12/31/2020 10:14 PM EDT EXAMINATION: ONE [...] Clear lungs. Cardiomegaly. No acute cardiopulmonary abnormality. [employer] Phone: [employer] Phone: hCG, quantitative, Ordered By: Melita Hernandes on 12-31-2020 hCG Quant <1 <5 IU/L [employer] Phone: Comment on above: Non-preg premeno <=5 Postmeno <=8 Male <=3 If HCG results do not concur with clinical observations, additional testing to confirm results is recommended. Elevated results not associated with may be found in patients with other diseases such as tumors of the germ cells (testis, ovaries, etc.), bladder, pancreas, stomach, lungs, and liver. [employer] Phone: CBC Auto Differentialon 12-0 Basophils (Bld) [#/Vol] 0.08 10*3/uL [facility] [employer] [place] Basophils/100 WBC (Bld) 1 % 0 - 2 % [facility] [employer] [place] Differential Type NOT REPORTED [facility] [place] Eosinophils (Bld) [#/Vol] 0.42 10*3/uL [facility] [employer] [place] Eosinophils/100 WBC (Bld) 5 % High 1 - 4 % [facility] [place] Erythrocyte distribution width (RBC) [Ratio] 12.8 % 11.8 - 14.4 % [facility] [place] Hematocrit (Bld) [Volume fraction] 40.6 % 36.3 - 47.1 % [place] Hemoglobin (Bld) [Mass/Vol] 13.3 g/dL 11.9 - 15.1 g/dL [place] Immature granulocytes (Bld) [#/Vol] 0 % 0 [place] Immature granulocytes (Bld) [#/Vol] 10*3/uL [place] Interpretation and review of laboratory results Abnormal [place] Lymphocytes (Bld) [#/Vol] 1.93 10*3/uL [place] Lymphocytes/100 WBC (Bld) 23 % Low 24 - 43 % [place] MCH (RBC) [Entitic mass] 26.2 pg 25.2 - 33.5 pg [place] MCHC (RBC) [Mass/Vol] 32.8 g/dL 28.4 - 34.8 g/dL [place] MCV (RBC) [Entitic vol] 80.1 fL Low 82.6 - 102.9 fL [place] Monocytes (Bld) [#/Vol] 0.58 10*3/uL [place] Monocytes/100 WBC (Bld) 7 % 3 - 12 % M [place] Platelet mean volume (Bld) [Entitic vol] 11.2 fL 8.1 - 13.5 fL [place] Platelets (Bld) [#/Vol] 215 10*3/uL [place] Platelets (Bld) [#/Vol] NOT REPORTED [place] RBC (Bld) [#/Vol] 5.07 10*6/uL 3.95 - 5.1 1 m/uL [place] RBC morphology finding Nom (Bld) NOT REPORTED [place] Segmented neutrophils/100 WBC (Bld) 64 % 36 - 65 % [place] Segs Absolute 5.31 [place] WBC (Bld) [#/Vol] 8.3 10*3/uL [place] WBC (Bld) [#/Vol] 0.0 10*3/uL 0.0 per 10 0 WBC [place] WBC Morphology NOT REPORTED [place], [place] CT ABDOMEN PELVIS W IV CONTR [...] Bones/Soft Tissues: The osseous structures are unremarkable. [place] 1. No acute abnormality. [place] Jalen, Mhpn Incoming Radiant Results From [employer] - 07/10/2020 7:59 PM EST EXAMINATION: CT [...] are unremarkable. IMPRESSION: 1. No acute abnormality. [place] Comprehensive Metabolic Pane l w/ Reflex to MGon 07-10-2020 Albumin [Mass/Vol] 4.1 g/dL 3.5 - 5.2 g/dL [place] Albumin/Globulin [Mass ratio] 1.6 {ratio} [place] ALP [Catalytic activity/Vol] 83 U/L 35 - 104 U/L [place] ALT [Catalytic activity/Vol] 68 U/L High 5 - 33 U/L [place] Anion gap [Moles/Vol] 9 mmol/L 9 - 17 mmol/L [place] AST [Catalytic activity/Vol] 40 U/L High <32 [place] Bilirubin Ql (U) 0.27 mg/dL Low 0.3 - 1.2 mg/dL [place] Bun/Cre Ratio 20 [place] Calcium [Mass/Vol] 8.9 mg/dL 8.6 - 10. 4 mg/dL [place] Chloride [Moles/Vol] 101 mmol/L 98 - 10 7 mmol/L [place] CO2 [Moles/Vol] 24 mmol/L 20 - 31 mmol/L [place] Creatinine [Mass/Vol] 0.91 mg/dL High 0.5 - 0.9 mg/dL [place] GFR >60 >60 mL/min [place] GFR Non- >60 >60 mL/min [place] Glucose [Mass/Vol] 107 mg/dL High 70 - 99 mg/dL [place] Potassium [Moles/Vol] 4.2 mmol/L 3.7 - 5.3 mmol/L [place] Protein [Mass/Vol] 6.6 g/dL 6.4 - 8.3 g/dL [place] Sodium [Moles/Vol] 134 mmol/L Low 135 - 144 mmol/L [place] Urea nitrogen [Mass/Vol] 18 mg/dL 6 - 20 mg/dL [place] Lactic Acidon 07-10-2020 Lactate [Moles/Vol] 0.9 mmol/L 0.5 - 2. 2 mmol/L [place] Lipaseon 07-10-2020 Lipase [Catalytic activity/Vol] 12 U/L Low 13 - 60 U/L [place] Metabolic Panelon 07-10-2020 GFR/1.73 sq M predicted among non-blacks MDRD (S/P/Bld) [Vol rate/Area] [place] Comment on above: Average GFR for 20-2 9 years old: 116 mL/min/1.73sq m Chronic Kidney Disease: <60 mL/min/1.73sq m Kidney failure: <15 mL/min/1.73sq m eGFR calculated using average adult body mass. Additional eGFR calculator available at: http://www.[employer]/multiple_crcl_2012.htm Stage 1: Some kidney damage normal GFR Stage 2: Mild kidney damage GFR 60-89 Stage 3: Moderate kidney damage GFR 30-59 Stage 4: Severe kidney damage GFR 15-29 Stage 5: Severe kidney damage GFR <15 ESRD - chronic treatment by dialysis or transplant Otheron 07-10-2020 Interpretation and review of laboratory results Abnormal [place], [place] , Urineon 0 Beta HCG ( test) Ql (U) Negative NEGATIVE [place] Comment on above: Specimens with hCG l evels near the threshold of the test (25 mIU/mL) may give a negative or indeterminate result. In such cases, another test should be performed with a new specimen in 48-72 hours. If early is suspected clinically in this setting, correlation with quantitative serum b-hCG level is suggested. [employer] has confirmed the use of plasma for this test. This has not been cleared or approved by the U.S. Food and Drug Administration. The FDA has determined that such clearance is not necessary. Urinalysis, reflex to micros copicon 07-10-2020 Bilirubin Urine Negative NEGATIVE [facility] [place] Color, UA YELLOW [place] Glucose, Ur Negative NEGATIVE [place] Interpretation and review of laboratory results Abnormal [place] Ketones Ql (U) Negative NEGATIVE [place], [place] Leukocyte esterase Test strip Ql (U) Negative NEGATIVE [place] Nitrite, Urine Negative NEGATIVE [place] pH, UA 5.5 [place] Protein (U) [Mass/Vol] Negative NEGATIVE [place] Specific [place], UA >1.030 High [place] Turbidity UA CLEAR CLEAR [place] Urinalysis Comments NOT REPORTED [place] Urine Hgb Negative NEGATIVE [place] Urobilinogen, Urine Normal Normal [place] CBCon 07-05-2019 Erythrocyte distribution width (RBC) [Ratio] 12.5 % 11.8 - 14.4 % [place] Hematocrit (Bld) [Volume fraction] 45.1 % 36.3 - 47.1 % [place] Hemoglobin (Bld) [Mass/Vol] 15.0 g/dL 11.9 - 15.1 g/dL [place] Interpretation and review of laboratory results Abnormal [place] MCH (RBC) [Entitic mass] 27.0 pg 25.2 - 33.5 pg [place] MCHC (RBC) [Mass/Vol] 33.3 g/dL 28.4 - 34.8 g/dL [place] MCV (RBC) [Entitic vol] 81.1 fL Low 82.6 - 102.9 fL [place] Platelet mean volume (Bld) [Entitic vol] 11.1 fL 8.1 - 13.5 fL [place] Platelets (Bld) [#/Vol] 229 10*3/uL [place] RBC (Bld) [#/Vol] 5.56 10*6/uL High 3.95 - 5.1 1 m/uL [place] WBC (Bld) [#/Vol] 0.0 10*3/uL 0.0 per 10 0 WBC [place] WBC (Bld) [#/Vol] 14.8 10*3/uL [place] Comprehensive Metabolic Pane josh 07-05-2019 Albumin [Mass/Vol] 4.4 g/dL 3.5 - 5.2 g/dL [place] Albumin/Globulin [Mass ratio] 1.6 {ratio} [place] ALP [Catalytic activity/Vol] 101 U/L 35 - 104 U/L [place] ALT [Catalytic activity/Vol] 34 U/L High 5 - 33 U/L [place] Anion gap [Moles/Vol] 16 mmol/L 9 - 17 mmol/L [place] AST [Catalytic activity/Vol] 24 U/L <32 [place] Bilirubin Ql (U) 0.54 mg/dL 0.3 - 1.2 mg/dL [place] Bun/Cre Ratio 22 [place] Calcium [Mass/Vol] 9.0 mg/dL 8.6 - 10. 4 mg/dL [place] Chloride [Moles/Vol] 98 mmol/L 98 - 10 7 mmol/L [place] CO2 [Moles/Vol] 22 mmol/L 20 - 31 mmol/L [place] Creatinine [Mass/Vol] 0.83 mg/dL 0.5 - 0.9 mg/dL [place] GFR >60 >60 mL/min [place] GFR Non- >60 >60 mL/min [place] Glucose [Mass/Vol] 115 mg/dL High 70 - 99 mg/dL [place] Potassium [Moles/Vol] 4.4 mmol/L 3.7 - 5.3 mmol/L [place] Protein [Mass/Vol] 7.2 g/dL 6.4 - 8.3 g/dL [place] Sodium [Moles/Vol] 136 mmol/L 135 - 144 mmol/L [place] Urea nitrogen [Mass/Vol] 18 mg/dL 6 - 20 mg/dL [place] Lipaseon 07-05-2019 Lipase [Catalytic activity/Vol] 11 U/L Low 13 - 60 U/L [place] Metabolic Panelon 07-05-2019 GFR/1.73 sq M predicted among non-blacks MDRD (S/P/Bld) [Vol rate/Area] [place], [place] Comment on above: Stage 1: Some [...] body mass. Additional eGFR calculator available at: http://www.[employer]/multiple_crcl_2012.htm Microscopic Urinalysison Amorphous, UA 1+ Abnormal None [place] Bacteria, UA 3+ Abnormal None [place] Casts UA NOT REPORTED /LPF [place] Crystals UA NOT REPORTED None /HPF [place] Epithelial Cells UA 10 TO 20 [place] Interpretation and review of laboratory results Abnormal [place] Mucus, UA NOT REPORTED None [place] Other Observations UA NOT REPORTED NOT REQ. M [place] RBC (U) [#/Vol] 0 TO [address] [facility] [place] Renal Epithelial, Urine NOT REPORTED 0 /HPF [place] Trichomonas, UA NOT REPORTED None [facility] [place] WBC, UA 0 TO 2 [place] Yeast, UA NOT REPORTED None [place] - [place] Otheron 07-05-2019 Interpretation and review of laboratory results Abnormal [place] , Urineon 9 Beta HCG ( test) Ql (U) Negative NEGATIVE [place] Comment on above: Specimens with hCG l evels near the threshold of the test (25 mIU/mL) may give a negative or indeterminate result. In such cases, another test should be performed with a new specimen in 48-72 hours. If early is suspected clinically in this setting, correlation with quantitative serum b-hCG level is suggested. [employer] has confirmed the use of plasma for this test. This has not been cleared or approved by the U.S. Food and Drug Administration. The FDA has determined that such clearance is not necessary. Urinalysis Reflex to Culture on 07-05-2019 Bilirubin Urine Negative NEGATIVE [place] Color, UA YELLOW YELLOW [place] Glucose, Ur Negative NEGATIVE [place] Interpretation and review of laboratory results Abnormal [place] Ketones Ql (U) Negative NEGATIVE [place] Leukocyte esterase Test strip Ql (U) Negative NEGATIVE [place] Nitrite, Urine Positive Abnormal NEGATIVE [place], [place] pH, UA 6.0 [place] Protein (U) [Mass/Vol] 2+ Abnormal NEGATIVE [place] Specific [place], UA >1.030 High [place] Turbidity UA TURBID Abnormal CLEAR [place] Urinalysis Comments NOT REPORTED [place] Urine Hgb Negative NEGATIVE [place] Urobilinogen, Urine Normal Normal [place] Vital Signs Date Time Vital Sign Value Performing Clinician Facility 01-13-2025 13:56-0400 Body temperature 98.8 [degF] April Farris MD Work Phone: [facility] 01-13-2025 13:56-0400 Diastolic blood pressure 87 mm[Hg] April Farris MD Work Phone: [facility] 01-13-2025 13:56-0400 Heart rate 66 /min April Farris MD Work Phone: [facility] 01-13-2025 13:56-0400 Respiratory rate 17 /min April Farris MD Work Phone: [facility] 01-13-2025 13:56-0400 SaO2% (BldA) [Mass fraction] 99 % April Farris MD Work Phone: [facility] 01-13-2025 13:56-0400 Systolic blood pressure 146 mm[Hg] April Farris MD Work Phone: [facility] 12-12-2024 09:25-0400 Body mass index (BMI) [Ratio] 42.69 kg/m2 Sumeet Barron PMHNP-BC Work Phone: [facility] 12-12-2024 09:25-0400 Body weight 109.32 kg Sumeet Barron PMHNP-BC Work Phone: [facility] 12-12-2024 09:25-0400 Diastolic blood pressure 94 mm[Hg] Sumeet Barron PMHNP-BC Work Phone: [facility] 12-12-2024 09:25-0400 Heart rate 66 /min Sumeet Barron PMHNP-BC Work Phone: [facility] 12-12-2024 09:25-0400 Systolic blood pressure 144 mm[Hg] Sumeet Barron PMHNP-BC Work Phone: [facility] 11-22-2024 09:10-0400 Body height 160 cm Susie Risaliti GANG DRILL OPERATOR Work Phone: [facility] 11-22-2024 09:10-0400 Body mass index (BMI) [Ratio] 41.27 kg/m2 Susie Risaliti GANG DRILL OPERATOR Work Phone: [facility] 11-22-2024 09:10-0400 Body weight 105.69 kg Susie Risaliti GANG DRILL OPERATOR Work Phone: [facility] 11-22-2024 09:10-0400 Diastolic blood pressure 80 mm[Hg] Susie Risaliti GANG DRILL OPERATOR Work Phone: [facility] 11-22-2024 09:10-0400 Heart rate 77 /min Susie Risaliti GANG DRILL OPERATOR Work Phone: [facility] 11-22-2024 09:10-0400 SaO2% (BldA) [Mass fraction] 99 % Susie Risaliti GANG DRILL OPERATOR Work Phone: [facility] 11-22-2024 09:10-0400 Systolic blood pressure 120 mm[Hg] Susie Alaniz GANG DRILL OPERATOR Work Phone: [facility] 09-05-2024 11:08-0500 Body height 160 cm Cici Fulton MD Work Phone: [facility] 09-05-2024 11:08-0500 Body mass index (BMI) [Ratio] 39.86 kg/m2 Cici Fulton MD Work Phone: [facility] 09-05-2024 11:08-0500 Body weight 102.06 kg Cici Fulton MD Work Phone: [facility] 09-05-2024 11:08-0500 Diastolic blood pressure 70 mm[Hg] Cici Fulton MD Work Phone: [facility] 09-05-2024 11:08-0500 Heart rate 72 /min Cici Fulton MD Work Phone: [facility] 09-05-2024 11:08-0500 SaO2% (BldA) [Mass fraction] 95 % Cici Fulton MD Work Phone: [facility] 09-05-2024 11:08-0500 Systolic blood pressure 118 mm[Hg] Cici Fulton MD Work Phone: [facility] 06-27-2024 09:49-0500 Body height 160 cm Malgorzata Cherryion GANG DRILL OPERATOR Work Phone: [facility] 06-27-2024 09:49-0500 Body mass index (BMI) [Ratio] 40.74 kg/m2 Malgorzata Didion GANG DRILL OPERATOR Work Phone: [facility] 06-27-2024 09:49-0500 Body weight 104.33 kg Malgorzata Didion GANG DRILL OPERATOR Work Phone: [facility] 06-27-2024 09:49-0500 Diastolic blood pressure 78 mm[Hg] Malgorzata Didion GANG DRILL OPERATOR Work Phone: [facility] 06-27-2024 09:49-0500 Heart rate 66 /min Malgorzata Mccollum GANG DRILL OPERATOR Work Phone: [facility] 06-27-2024 09:49-0500 Respiratory rate 16 /min Malgorzata Mccollum GANG DRILL OPERATOR Work Phone: [facility] 06-27-2024 09:49-0500 SaO2% (BldA) [Mass fraction] 99 % Malgorzata Mccollum GANG DRILL OPERATOR Work Phone: [facility] 06-27-2024 09:49-0500 Systolic blood pressure 110 mm[Hg] Malgorzata Mccollum GANG DRILL OPERATOR Work Phone: [facility] 06-09-2024 09:46-0400 Body mass index (BMI) [Ratio] 40.74 kg/m2 Yadira Spencer GANG DRILL OPERATOR Work Phone: [facility] 06-09-2024 09:46-0400 Body weight 104.33 kg Yadira Spencer GANG DRILL OPERATOR Work Phone: [facility] 06-09-2024 09:46-0400 Diastolic blood pressure 78 mm[Hg] Yadira Spencer GANG DRILL OPERATOR Work Phone: [facility] 06-09-2024 09:46-0400 Heart rate 84 /min Yadira Spencer GANG DRILL OPERATOR Work Phone: [facility] 06-09-2024 09:46-0400 SaO2% (BldA) [Mass fraction] 98 % Yadira Spencer GANG DRILL OPERATOR Work Phone: [facility] 06-09-2024 09:46-0400 Systolic blood pressure 110 mm[Hg] Yadiraayla Spencer GANG DRILL OPERATOR Work Phone: [facility] 05-05-2024 10:21-0400 Body mass index (BMI) [Ratio] 40.21 kg/m2 Yadiraayla Spencer GANG DRILL OPERATOR Work Phone: [facility] 05-05-2024 10:21-0400 Body weight 102.97 kg Yadiraayla Spencer GANG DRILL OPERATOR Work Phone: [facility] 05-05-2024 10:21-0400 Diastolic blood pressure 92 mm[Hg] Yadira Spencer GANG DRILL OPERATOR Work Phone: [facility] 05-05-2024 10:21-0400 Heart rate 83 /min Yadira Spencer GANG DRILL OPERATOR Work Phone: [facility] 05-05-2024 10:21-0400 SaO2% (BldA) [Mass fraction] 99 % Yadira Spencer GANG DRILL OPERATOR Work Phone: [facility] 05-05-2024 10:21-0400 Systolic blood pressure 118 mm[Hg] Yadira Spencer GANG DRILL OPERATOR Work Phone: [facility] 02-11-2024 15:40-0400 Body temperature 98.4 [degF] Radha Gutierrez MD Work Phone: [employer] 02-11-2024 15:40-0400 Diastolic blood pressure 57 mm[Hg] Radha Gutierrez MD Work Phone: [employer] 02-11-2024 15:40-0400 Heart rate 65 /min Radha Gutierrez MD Work Phone: [employer] 02-11-2024 15:40-0400 Respiratory rate 16 /min Radha Gutierrez MD Work Phone: [employer] 02-11-2024 15:40-0400 SaO2% (BldA) [Mass fraction] 99 % Radha Gutierrez MD Work Phone: [employer] 02-11-2024 15:40-0400 Systolic blood pressure 108 mm[Hg] Radha Gutierrez MD Work Phone: [employer] 02-11-2024 06:00-0400 Body mass index (BMI) [Ratio] 43.19 kg/m2 Radha Gutierrez MD Work Phone: [employer] 02-11-2024 06:00-0400 Body weight 110.6 kg Radha Gutierrez MD Work Phone: [employer] 02-11-2024 03:45-0400 Body height 160 cm Radha Gutierrez MD Work Phone: [employer] 06-01-2023 14:30-0400 Body height 160.02 cm Imad Asaad Other [employer] Other 06-01-2023 14:30-0400 Body mass index (BMI) [Ratio] 41.36 kg/m2 Imad Asaad Other [employer] Other 06-01-2023 14:30-0400 Body weight 105.92 kg Imad Asaad Other [employer] Other 06-01-2023 14:30-0400 Diastolic blood pressure 99 mm[Hg] Imad Asaad Other [employer] Other 06-01-2023 14:30-0400 Systolic blood pressure 156 mm[Hg] Imad Asaad Other [employer] Other 03-06-2023 10:00-0400 Body temperature 98.6 [degF] Franco Jeffrey MD [facility] [place] 03-06-2023 10:00-0400 Diastolic blood pressure 68 mm[Hg] Franco Jeffrey MD [facility] [employer] 03-06-2023 10:00-0400 Heart rate 78 /min Franco Jeffrey MD [facility] [employer] 03-06-2023 10:00-0400 Respiratory rate 20 /min Franco Jeffrey MD [facility] [place] 03-06-2023 10:00-0400 SaO2% (BldA) [Mass fraction] 99 % Franco Jeffrey MD [facility] [employer] 03-06-2023 10:00-0400 Systolic blood pressure 146 mm[Hg] Franco Jeffrey MD [facility] [employer] 12-15-2022 21:52-0400 Diastolic blood pressure 74 mm[Hg] Abdiel Mak MD Work Phone: [employer] 12-15-2022 21:52-0400 Heart rate 74 /min Abdiel Mak MD Work Phone: [employer] 12-15-2022 21:52-0400 Respiratory rate 15 /min Abdiel Mak MD Work Phone: [employer] 12-15-2022 21:52-0400 SaO2% (BldA) [Mass fraction] 99 % Abdiel Mak MD Work Phone: [employer] 12-15-2022 21:52-0400 Systolic blood pressure 121 mm[Hg] Abdiel Mak MD Work Phone: [employer] 12-15-2022 20:35-0400 Body temperature 98.01 [degF] Abdiel Mak MD Work Phone: [employer] 04-16-2022 12:08-0400 Body height 160 cm Von Kunz MD Work Phone: [employer] 04-16-2022 12:08-0400 Body mass index (BMI) [Ratio] 38.97 kg/m2 oVn Kunz MD Work Phone: [employer] 04-16-2022 12:08-0400 Body temperature 98.1 [degF] Von Kunz MD Work Phone: [employer] 04-16-2022 12:08-0400 Body weight 99.79 kg Von Kunz MD Work Phone: [employer] 04-16-2022 12:08-0400 Diastolic blood pressure 77 mm[Hg] Von Kunz MD Work Phone: [employer] 04-16-2022 12:08-0400 Heart rate 77 /min Von Kunz MD Work Phone: [employer] 04-16-2022 12:08-0400 Respiratory rate 16 /min Von Kunz MD Work Phone: [facility] [employer] 04-16-2022 12:08-0400 SaO2% (BldA) [Mass fraction] 98 % Von Kunz MD Work Phone: [facility] [employer] 04-16-2022 12:08-0400 Systolic blood pressure 115 mm[Hg] Von Kunz MD Work Phone: [facility] [employer] 03-05-2022 14:16-0400 Body temperature 98.1 [degF] Cici [place] Work Phone: [facility] [employer] 03-05-2022 14:16-0400 Diastolic blood pressure 97 mm[Hg] [facility] Work Phone: [facility] [employer] 03-05-2022 14:16-0400 Heart rate 69 /min [facility] Work Phone: [facility] [employer] 03-05-2022 14:16-0400 Respiratory rate 18 /min [facility] Work Phone: [facility] [employer] 03-05-2022 14:16-0400 SaO2% (BldA) [Mass fraction] 95 % [facility] Work Phone: [facility] [employer] 03-05-2022 14:16-0400 Systolic blood pressure 161 mm[Hg] Cici [place] Work Phone: [facility] [employer] 09-21-2021 11:35-0500 Body height 160 cm [facility]-21-[facility]21 11:35-0500 Body mass index (BMI) [Ratio] 38.97 kg/m2 Franco Jeffrey MD [employer] 09-21-2021 11:35-0500 Body temperature 97.9 [degF] [facility] 09-21-2021 11:35-0500 Body weight 99.79 kg Franco Jeffrey MD [employer] 09-21-2021 11:35-0500 Diastolic blood pressure 87 mm[Hg] Franco Jeffrey MD [employer] 09-21-2021 11:35-0500 Heart rate 92 /min Franco Jeffrey MD [employer] 09-21-2021 11:35-0500 Respiratory rate 20 /min Franco Jeffrey MD [employer] 09-21-2021 11:35-0500 SaO2% (BldA) [Mass fraction] 99 % Franco Jeffrey MD [employer] 09-21-2021 11:35-0500 Systolic blood pressure 161 mm[Hg] Franco Jeffrey MD [employer] 09-21-2021 04:00-0500 Diastolic blood pressure 78 mm[Hg] Cici Fulton Work Phone: [employer] 09-21-2021 04:00-0500 Heart rate 89 /min Cici Fulton Work Phone: [employer] 09-21-2021 04:00-0500 Respiratory rate 16 /min Cici Fulton Work Phone: [employer] 09-21-2021 04:00-0500 SaO2% (BldA) [Mass fraction] 94 % Cici Fulton Work Phone: [employer] 09-21-2021 04:00-0500 Systolic blood pressure 100 mm[Hg] Cici Fulton Work Phone: [employer] 09-21-2021 03:55-0500 Body height 160 cm Cici Fulton Work Phone: [employer] 09-21-2021 03:55-0500 Body mass index (BMI) [Ratio] 39.86 kg/m2 Cici Fulton Work Phone: [employer] 09-21-2021 03:55-0500 Body weight 102.06 kg Cici Fulton Work Phone: [employer] 09-21-2021 03:53-0500 Body temperature 98.2 [degF] Cici Fulton Work Phone: [employer] 12-31-2020 23:15-0400 Diastolic blood pressure 46 mm[Hg] Cici Fulton Work Phone: [employer] Work Phone: 12-31-2020 23:15-0400 Heart rate 84 /min Cici Fulton Work Phone: [employer] Work Phone: 12-31-2020 23:15-0400 Respiratory rate 19 /min Cici Fulton Work Phone: [employer] Work Phone: 12-31-2020 23:15-0400 SaO2% (BldA) [Mass fraction] 94 % Cici Fulton Work Phone: [employer] Work Phone: 12-31-2020 23:15-0400 Systolic blood pressure 125 mm[Hg] Cici Fulton Work Phone: [employer] Work Phone: 12-31-2020 21:06-0400 Body temperature 100 [degF] Cici Fulton Work Phone: [employer] Work Phone: 09-11-2020 14:12-0500 BMI (Body Mass Index) 38.97 kg/m2 [facility] [place], [place] 09-11-2020 14:12-0500 Body Temperature 97 [degF] [facility] [place] [place] 09-11-2020 14:12-0500 Body weight 99.79 kg [facility] [place] 09-11-2020 14:12-0500 BP Diastolic 84 mm[Hg] [facility] [place] 09-11-2020 14:12-0500 BP Systolic 138 mm[Hg] [facility] [place] 09-11-2020 14:12-0500 Height 160 cm [facility]r [facility] [place] 09-11-2020 14:12-0500 Pulse (Heart Rate) 72 /min [facility] [place] 09-11-2020 14:12-0500 Pulse Oximetry 99 % Barry Aaron Andrews [employer] [place] 09-11-2020 14:12-0500 Respiratory Rate 20 /min [facility] [place] 07-10-2020 20:00-0500 BP Diastolic 82 mm[Hg] [place] 07-10-2020 20:00-0500 BP Systolic 152 mm[Hg] [place] 07-10-2020 20:00-0500 Pulse (Heart Rate) 55 /min [place] 07-10-2020 20:00-0500 Respiratory Rate 13 /min [place] 07-10-2020 19:46-0500 Pulse Oximetry 100 % [place] 07-10-2020 17:53-0500 BMI (Body Mass Index) 42.99 kg/m2 [place] 07-10-2020 17:53-0500 Body Temperature 96.49 [degF] [place] 07-10-2020 17:53-0500 Body weight 109.77 kg [place] 07-05-2019 22:11-0500 BMI (Body Mass Index) 35.53 kg/m2 [place] 07-05-2019 22:11-0500 Body Temperature 98.6 [degF] [place] 07-05-2019 22:11-0500 Body weight 90.72 kg [place] 07-05-2019 22:11-0500 BP Diastolic 92 mm[Hg] [place] 07-05-2019 22:11-0500 BP Systolic 132 mm[Hg] [place] 07-05-2019 22:11-0500 Pulse (Heart Rate) 104 /min [place] 07-05-2019 22:11-0500 Pulse Oximetry 94 % [place] 07-05-2019 22:11-0500 Respiratory Rate 18 /min [facility] [place] Encounters Encounter Date Encounter Type Care Provider Facility Start: 02-09-2025 End: 02-09-2025 Subsequent hospital visit by physician Cici Fulton MD Work Phone: [facility] Start: 02-09-2025 End: 02-09-2025 Clinisync Result Encounter Pb Alvaro DO Work Phone: [facility] Unsolicited Start: 02-09-2025 End: 02-09-2025 Clinisync Result Encounter Pb Alvaro DO Work Phone: [facility] Unsolicited Start: 02-07-2025 End: 02-07-2025 Orders Only Sumeet Barron [facility]- Work Phone: [facility] Comment on above: Moderate episode of recurrent major depressive disorder (HCC); ADOLFO (generalized anxiety disorder) ; PTSD (post-traumatic stress disorder) Start: 01-31-2025 End: 02-01-2025 Refbill Fulton MD Work Phone: [facility] Comment on above: Attention deficit hy peractivity disorder (ADHD), predominantly inattentive type Start: 01-16-2025 End: 01-16-2025 Clinisync Result Encounter Generic External Data Provider [facility] Unsolicited Start: 01-16-2025 End: 01-16-2025 Clinisync Result Encounter Generic External Data Provider [facility] External [facility] Unsolicited Start: 01-13-2025 End: 01-13-2025 Emergency department patient visit April Farris MD Work Phone: [facility] Start: 01-13-2025 End: 01-13-2025 Emergency department patient visit CICI FULTON [facility] Start: 12-22-2024 End: 12-22-2024 Refbill Alaniz NP Work Phone: [facility] Comment on above: Attention deficit hy peractivity disorder (ADHD), predominantly inattentive type (CMS/HCC) Start: 12-12-2024 End: 12-12-2024 Bamboo flowsheet Sumeeteduardo Barron [facility]- Work Phone: [facility] Start: 12-12-2024 End: 12-12-2024 Bamboo flowsheet Sumeeteduardo Barron [facility]- Work Phone: [facility] Start: 12-12-2024 End: 12-12-2024 ambulatory SUMEET BARRON Not Available Start: 11-23-2024 End: 11-23-2024 Telephone encounter Susie R Risaliti GANG DRILL OPERATOR Work Phone: [facility] Comment on above: referral and medicat ion Start: 11-22-2024 End: 11-22-2024 Bamboo flowsheet Susie R Risaliti GANG DRILL OPERATOR Work Phone: [facility] Start: 11-22-2024 End: 11-22-2024 Bamboo flowsheet Susie R Risaliti GANG DRILL OPERATOR Work Phone: [facility] Start: 11-22-2024 End: 11-22-2024 ambulatory SUSIE R RISALITI Not Available Start: 11-22-2024 End: 11-22-2024 Office outpatient visit 25 minutes Susie R Risaliti GANG DRILL OPERATOR Work Phone: [facility] Comment on above: ADOLFO (generalized anx iety disorder) (CMS/HCC) (Primary Dx); Moderate major depression (CMS/HCC); Mixed bipolar affective disorder, mild (CMS/HCC); Attention deficit hyperactivity disorder (ADHD), predominantly inattentive type (CMS/HCC) Start: 09-12-2024 End: 09-12-2024 ambulatory [facility] Start: 09-05-2024 End: 09-05-2024 ambulatory CICI FULTON Not Available Start: 09-05-2024 End: 09-05-2024 Patient encounter procedure Cici Fulton MD Work Phone: [facility] Start: 09-05-2024 End: 09-05-2024 Periodic preventive med est patient 18-39 yrs Cici Fulton MD Work Phone: [facility] Comment on above: Annual physical exam (Primary Dx); Essential hypertension (CMS/HCC); Prediabetes; Attention deficit hyperactivity disorder (ADHD), predominantly inattentive type (CMS/HCC); Bipolar disorder, current episode mixed, mild (CMS/HCC); Major depressive disorder, single episode, moderate (HCC) (CMS/HCC); ADOLFO (generalized anxiety disorder) ([facility]); Thoracic aortic aneurysm without rupture, unspecified part ([facility]); Nonrheumatic aortic valve stenosis; Vitamin D deficiency; Severe obesity (BMI 35.0-39.9) with comorbidity ([facility]); BMI 40.0-44.9, adult ([facility]); Medication management Start: 08-22-2024 End: 08-22-2024 Refill Cici Fulton MD Work Phone: [facility] Comment on above: Attention deficit di sorder (ADD) in adult Start: 07-20-2024 End: 07-21-2024 Refill Susie Alaniz GANG DRILL OPERATOR Work Phone: [facility] Comment on above: Attention deficit di sorder (ADD) in adult Start: 07-05-2024 End: 07-05-2024 Telephone encounter Abdiel Frye MD Work Phone: [facility] Start: 06-30-2024 End: 06-30-2024 Telephone encounter Abdiel Frye MD Work Phone: [facility] Start: 06-27-2024 End: 06-27-2024 ambulatory MALGORZATA MCCOLLUM Not Available Start: 06-27-2024 End: 06-27-2024 Office outpatient visit 15 minutes Malgorzata Mccollum GANG DRILL OPERATOR Work Phone: [facility] Comment on above: Numbness and tinglin g of right thumb (Primary Dx); Decreased director of security strength of right hand Start: 06-23-2024 End: 06-23-2024 Bamboo flowsheet Christy Gimenez GANG DRILL OPERATOR Work Phone: [facility] Start: 06-23-2024 End: 06-23-2024 Bamboo flowsheet Christy Gimenez GANG DRILL OPERATOR Work Phone: [facility] Start: 06-23-2024 End: 06-23-2024 Office outpatient visit 25 minutes Christy Gimenez GANG DRILL OPERATOR Work Phone: [facility] Comment on above: Primary localized os teoarthritis of left knee (Primary Dx); Left knee pain, unspecified chronicity; Knee strain, left, initial encounter Start: 06-23-2024 End: 06-23-2024 ambulatory CHRISTY Ricky GIMENEZ Not Available Start: 06-20-2024 End: 06-20-2024 Afshan Fulton MD Work Phone: [facility] Comment on above: Attention deficit di sorder (ADD) in adult Start: 06-09-2024 End: 06-09-2024 Office outpatient visit 25 minutes Yadira Spencer GANG DRILL OPERATOR Work Phone: [facility] IM Comment on above: Postural dizziness w ith presyncope (Primary Dx); Bicuspid aortic valve Start: 06-09-2024 End: 06-09-2024 ambulatory CICI FULTON Not Available Start: 05-18-2024 End: 05-18-2024 Refbill Alaniz GANG DRILL OPERATOR Work Phone: [facility] Comment on above: Attention deficit di sorder (ADD) in adult Start: 05-05-2024 End: 05-05-2024 Office outpatient visit 15 minutes Yadira Spencer GANG DRILL OPERATOR Work Phone: [facility] IM Comment on above: Other constipation ( Primary Dx); Bicuspid aortic valve; Morbid obesity (CMS/HCC); Hemorrhoids, unspecified hemorrhoid type Start: 05-05-2024 End: 05-05-2024 ambulatory CICI FULTON Not Available Start: 04-19-2024 End: 04-20-2024 Afshan Fulton MD Work Phone: [facility] IM Comment on above: Attention deficit di sorder (ADD) in adult Start: 02-22-2024 End: 02-22-2024 ambulatory [facility] Start: 02-17-2024 End: 02-17-2024 ambulatory SUSIE ALANIZ Not Available Start: 02-11-2024 End: 02-11-2024 Evaluation and management of inpatient Radha Gutierrez MD Work Phone: [id number] Comment on above: Nonrheumatic aortic valve insufficiency (Primary Dx); Bicuspid aortic valve; Nonrheumatic aortic valve stenosis; Other chest pain Start: 02-10-2024 End: 02-11-2024 Emergency department patient visit Maryann Montalvo Facility:[facility] Start: 02-03-2024 End: 02-03-2024 ambulatory PB JOHN Not Available Start: 01-07-2024 End: 01-07-2024 ambulatory PB JOHN Not Available Start: 07-31-2023 End: 07-31-2023 Subsequent hospital visit by physician Irvin Singer PT [facility] Physical Therapy Start: 06-24-2023 End: 06-24-2023 ambulatory Imad Asaad Other [employer] Other Start: 06-24-2023 Telephone encounter Imad Asaad [facility] Start: 06-01-2023 End: 06-01-2023 ambulatory Imad Asaad Other [employer] Other Start: 06-01-2023 Office outpatient ne w 45 minutes Imad Asaad [facility] Start: 03-06-2023 End: 03-06-2023 Emergency department patient visit Franco Jeffrey MD [facility] ED Comment on above: Back spasm (Primary Dx) Start: 12-15-2022 End: 12-15-2022 Emergency department patient visit Abdiel Mak MD Work Phone: [facility] ED Comment on above: Contusion of left kn ee, initial encounter (Primary Dx) Start: 09-02-2022 End: 09-02-[address] PB JONH . 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 (Primary Dx) Start: 04-01-2022 End: 04-01-2022 Subsequent hospital visit by physician Cici Fulton Work Phone: [facility] Laboratory Start: 03-05-2022 End: 03-05-2022 Emergency department patient visit Cici Fulton Work Phone: [facility] ED Comment on above: STD exposure (Primar y Dx); Trichomonas infection Start: 09-21-2021 End: 09-21-2021 Emergency department patient visit Franco Jeffrey MD [facility] ED Comment on above: Left knee injury, se quela (Primary Dx) Start: 09-21-2021 End: 09-21-2021 Emergency department patient visit CICI Tariq [facility] Start: 09-21-2021 End: 09-21-2021 Emergency department patient visit Cici [place] Work Phone: [facility] ED Comment on above: Acute pain of left k nee (Primary Dx) Start: 12-31-2020 End: 01-01-2021 Emergency department patient visit Cici [place] Work Phone: [facility] ED Comment on above: Chest pain, unspecif ied type (Primary Dx) Start: 09-11-2020 End: 09-11-2020 Emergency department patient visit Barry Chapman Work Phone: [facility] ED Comment on above: Nausea vomiting and diarrhea (Primary Dx) Start: 07-10-2020 End: 07-10-2020 Emergency department patient visit [facility] ED Comment on above: Abdominal pain, unsp ecified abdominal location (Primary Dx) Start: 07-05-2019 End: 07-06-2019 Emergency department patient visit Ross Noriega Work Phone: [facility] ED Comment on above: Nausea and vomiting, intractability of vomiting not specified, unspecified vomiting type (Primary Dx) Procedures Date Procedure Procedure Detail Performing Clinician Start: 02-09-2025 ALL HCG, QUANTITATIVE G eneric External Data Provider Start: 02-09-2025 Gonadotropin chorion ic quantitative Bp Anand John MD Work Phone: Start: 01-16-2025 [facility] PREG QUANT HCG Core y Alvaro DO Work Phone: Start: 12-12-2024 End: 12-12-2024 Psychiatric diagnostic eval w/medical services Moderate episode of recurrent major depressive disorder (CMS/HCC) Sumeet Barron [facility] Work Phone: Comment on above: Moderate episode of recurrent major depressive disorder (CMS/HCC); ADOLFO (generalized anxiety disorder) (CMS/HCC); PTSD (post-traumatic stress disorder) ([facility]); Vitamin D insufficiency; Morbid (severe) obesity due to excess calories ([facility]); Encounter for drug screening; High risk medication use; Marijuana user; Attention deficit hyperactivity disorder (ADHD), predominantly inattentive type ([facility]) Start: 09-05-2024 Complete blood count with white cell differential, automated Cici Fulton MD Work Phone: Start: 09-05-2024 Comprehensive metabo lic panel Cici Fulton MD Work Phone: Start: 09-05-2024 Lipid panel Cici khan MD Work Phone: Start: 06-23-2024 Radiologic examinati on knee 1/2 views Christy Gimenez NP Work Phone: Start: 02-11-2024 Assay of troponin quantitative Galina Quiroga MD Work Phone: Start: 02-11-2024 Glucose blood reagen t strip Galina Quiroga MD Work Phone: Start: 02-11-2024 End: 02-11-2024 Basic metabolic panel calcium total Amy Koch [employer] [facility] Work Phone: Start: 02-11-2024 Lipid panel Amy Koch [employer] [facility] Work Phone: Start: 02-11-2024 Ecg routine ecg w/le ast 12 lds w/i&r Amy Koch [employer] Work Phone: Start: 12-15-2022 Radiologic examinati on knee 3 views Abdiel Mak MD Work Phone: Start: 04-01-2022 Ecg routine ecg w/le ast 12 lds w/i&r Cici Colon MD Work Phone: Start: 03-05-2022 Urine test visual color cmprsn meths Buddy Whitt PA-C Work Phone: Start: 03-05-2022 End: 03-05-2022 Smr prim src wet mount nfct agt Buddy Whitt [facility] Work Phone: Start: 09-21-2021 Ct angiography lower extremity Franco Jeffrey MD Start: 09-21-2021 BASIC METABOLIC PANE L W/ REFLEX TO MG FOR LOW K Franco Jeffrey MD Start: 09-21-2021 Gonadotropin chorion ic qualitative Franco Jeffrey MD Start: 01-01-2021 Ct thorax w/contrast material Melita Cecilio [facility] Work Phone: Start: 12-31-2020 Urinalysis microscop ic only [facility] Work Phone: Start: 12-31-2020 Urnls dip stick/tabl et rgnt auto w/o microscopy Melita [email or web address] [facility] [employer] Work Phone: Start: 12-31-2020 Ecg routine ecg w/le ast 12 lds w/i&r Melita Cecilio [facility] Work Phone: Start: 12-31-2020 End: 12-31-2020 Comprehensive metabolic panel [facility]ita [facility] Work Phone: Start: 12-31-2020 SPECIMEN REJECTION David menon Cecilio PA[facility] [place] [employer] Work Phone: Start: 12-31-2020 Radiologic exam ches t single view Melita [employer] [place] [employer] Work Phone: Start: 12-31-2020 COVID-19, RAPID Melita Miranda [employer] PA[facility] [employer] Work Phone: Start: 07-10-2020 Ct abdomen & [...] Cam Cannon Work Phone: Start: 07-05-2019 Urinalysis microscop ic only Melita Hernandes Work Phone: Start: 07-05-2019 Urine test visual color cmprsn meths Melita Hernandes Work Phone: Start: 07-05-2019 Urnls dip stick/tabl et rgnt auto w/o microscopy Melita Hernandes Work Phone: Start: 07-05-2019 Assay of lipase Melita garces Work Phone: Start: 07-05-2019 Blood count complete automated Melita Hernandes Work Phone: Start: 07-05-2019 Comprehensive metabo lic panel Melita Springercheson Work Phone: Plan of Treatment Date Care Activity Detail Author Start: 09-11-2025 End: 09-11-2025 Patient encounter procedure [facility] Start: 04-10-2025 Influenza vaccination N [facility] Start: 03-15-2025 End: 03-15-2025 Patient encounter procedure 03/15/2025 11:00 AM EDT Office Visit [facility] [address] [facility] [address] [place] [address] Sumeet Barron, HNP- [address] [facility] [address] [place] [address] [facility] Start: 03-10-2025 Influenza vaccination B on [facility] Start: 02-27-2025 End: 02-27-2025 Patient encounter procedure 02/27/2025 3:00 PM EDT Office Visit [facility] [address] [place] [address] [facility] Start: 02-20-2025 End: 02-20-2025 Patient encounter procedure [facility] Start: 02-13-2025 End: 02-13-2025 Patient encounter procedure 02/13/2025 12:30 PM EDT Office Visit [facility] [address], [address] [place] [address] Alan Mac APRN - GANG DRILL OPERATOR [address] [facility] [address] [place] [address] GANG DRILL OPERATOR: LMP 12/02? [facility] Comment on above: GANG DRILL OPERATOR: LMP 12/02? Start: 02-10-2025 Lipid panel Lipids SARAH Sr [facility] Start: 02-03-2025 End: 02-03-2025 ambulatory 02/03/2025 10:00 AM EDT Initial [facility] [address] [facility] [place] [address] [facility] Start: 02-03-2025 End: 02-03-2025 Professional / ancillary services management 02/03/2025 9:30 AM EDT Ancillary Procedure [facility] [address] [facility] [place] [address] [facility] Start: 01-30-2025 End: 01-30-2025 Patient encounter procedure 01/30/2025 11:00 AM EDT Office Visit [facility] [address] [facility] [address] [place] [address] [facility] Start: 01-20-2025 End: 01-20-2025 Telemedicine consultation with patient [facility] Comment on above: Moderate episode of recurrent major depressive disorder (CMS/HCC); ADOLFO (generalized anxiety disorder) (CMS/HCC); PTSD (post-traumatic stress disorder) (CMS/HCC); Vitamin D insufficiency; Attention deficit hyperactivity disorder (ADHD), predominantly inattentive type (CMS/HCC); Marijuana user Start: 01-12-2025 End: 01-12-2025 Social Work 01/12/2025 1:00 PM EDT Social Work [facility] [address] [place] [address] Myke Alvarenga LPC [facility] Start: 12-12-2024 End: 03-14-2025 25-hydroxyvitamin D3 [Mass/volume] in Serum or Plasma Vitamin D 25 hydroxy Total Lab Routine Vitamin D insufficiency Expected: 12/12/2024 (Approximate), Expires: 03/14/2025 [facility] Work Phone: Comment on above: Expected: 12/12/2024 (Approximate), Expires: 03/14/2025 Start: 10-31-2024 Influenza vaccination Influenza Vacc ine (#1) [facility] Comment on above: Postponed from 04/10 (Patient Refused) Start: 09-20-2024 End: 09-20-2024 Patient encounter procedure 09/20/2024 2:00 PM EST Office Visit [facility] [address] [place] [address] Marium Boyer PA [address] [place] [address] [facility] Start: 09-05-2024 End: 09-05-2024 Patient encounter procedure 09/05/2024 11:00 AM EST Office Visit [facility] [address] [place] [id number] Cici Fulton MD [address] [place] [address] [facility] Start: 08-23-2024 End: 08-23-2024 Patient encounter procedure 08/23/2024 11:00 AM EST Office Visit [facility] [address] [facility] [place] [id number] Pb John DO [address] [place] [address] [facility] Start: 08-22-2024 End: 08-22-2024 Patient encounter procedure 08/22/2024 10:45 AM EST Office Visit [facility] [address] [place] [address] Cici Fulton MD [address] [place] [address] [facility] Start: 08-09-2024 End: 08-09-2024 Patient encounter procedure 08/09/2024 2:15 PM EST Procedure Visit [facility] B [address] [place] [address] Abdiel Frye MD [address] [id number] [facility] Start: 06-27-2024 End: 06-27-2025 EMG AND NERVE CONDUCTION STUDY EMG AND NERVE CONDUCTION STUDY Neurology Routine Numbness and tingling of right thumb Decreased director of security strength of right hand Expected: 06/27/2024 (Approximate), Expires: 06/27/2025 [facility] Work Phone: Comment on above: Expected: 06/27/2024 (Approximate), Expires: 06/27/2025 Start: 06-01-2024 End: 06-01-2024 Patient encounter procedure 06/01/2024 9:15 AM EDT Consult [facility] [address] [address] Murray Wang MD [address] [facility] [address] [place], [place] [id number] [facility] Start: 04-10-2024 COVID-19 Vaccine ( season) COVID-19 Vaccine ( season) [facility] Start: 04-10-2024 Influenza vaccination Influenza Vacc ine (#1) [facility] Start: 03-10-2024 Influenza vaccination Flu vaccine (# 1) [facility] Start: 04-10-2023 COVID-19 Vaccine ( season) COVID-19 Vaccine ( season) [facility] Start: 03-10-2023 Influenza vaccination B ON [facility] Start: 03-05-2023 Screening for Chlamy ivan trachomatis Chlamydia screen [facility] Start: 12-09-2022 COVID-19 Vaccine (3 - Booster for Pfizer series) COVID-19 Vaccine (3 - Booster for Pfizer series) [facility] Start: 09-21-2022 Creatinine measurement Creatinine mo [facility] Start: 09-21-2022 Potassium monitoring Potassium monit [facility] Start: 04-10-2022 Influenza vaccination Flu vaccine (# 1) [facility] Start: 12-31-2021 Creatinine measurement Creatinine mo [facility] Start: 12-31-2021 Potassium monitoring Potassium monit [facility] Start: 07-10-2021 Creatinine measurement Creatinine mo [place], [place] Start: 07-10-2021 Potassium monitoring Potassium monit [place], [place] Start: 04-10-2021 Influenza vaccination [facility] Start: 07-05-2020 Creatinine measurement Creatinine mo [place] Start: 07-05-2020 Potassium monitoring Potassium monit [place] Start: 04-10-2020 Influenza vaccination Flu vaccine (# 1) [place], [place] Start: 04-10-2019 Influenza vaccination Flu vaccine (# 1) [place] Start: 2017 Cervical cancer screen Cervical canc er screen [place], [place] Start: 2017 Screening for malign ant neoplasm of cervix [facility] Start: 02-27-2017 DTaP/Tdap/Td vaccine (7 - Td or Tdap) DTaP/Tdap/Td vaccine (7 - Td or Tdap) [facility] Start: 10-28-2016 Creatinine monitoring Creatinine mon itoring [place], [place] Start: 10-28-2016 Potassium monitoring Potassium monit [place], [place] Start: 2015 DTaP/Tdap/Td vaccine (1 - Tdap) DTaP/Tdap/Td vaccine (1 - Tdap) [facility] Start: 2014 Hepatitis C screening Hepatitis C sc reen [facility] Start: 11-02-2013 Chlamydia screen Chlamydia screen [place], [place] Start: 11-02-2013 Screening for Chlamy ivan trachomatis Chlamydia screen [facility] Start: 2011 HIV screen HIV screen [place], [place] Start: 2011 HIV screening HIV screen [facility] Start: 2009 Varicella vaccine (1 of 2 - 13+ 2-dose series) Varicella vaccine (1 of 2 - 13+ 2-dose series) [facility] Start: 2008 COVID-19 Vaccine (1) COVID-19 Vaccin e (1) [facility] Work Phone: Start: 2008 Depression Screen Depression Screen [facility] Start: 2007 DTaP/Tdap/Td vaccine (1 - Tdap) DTaP/Tdap/Td vaccine (1 - Tdap) [place] Start: 2007 HPV vaccine (1 - 2-d ose series) HPV vaccine (1 - 2-dose series) [facility] Start: 2007 HPV vaccine (1 - Fem rafita 2-dose series) HPV vaccine (1 - Female 2-dose series) [place] Start: 2001 COVID-19 Vaccine (1) COVID-19 Vaccin e (1) [facility] Start: 1997 Varicella vaccine (1 of 2 - 2-dose childhood series) Varicella vaccine (1 of 2 - 2-dose childhood series) [facility] Start: 1996 COVID-19 Vaccine (#1) COVID-19 Vacci ne (#1) [facility] Start: 1996 Hepatitis C screening [facility] C sc [facility] End: 07-05-2019 Bacteria identified Cx Nom (U) Urine Culture Microbiology Routine Once for 1 Occurrences starting 07/05/2019 until 07/05/2019 [place] Comment on above: Once for 1 Occurrenc es starting 07/05/2019 until 07/05/2019 End: 03-05-2022 C.trachomatis N.gonorrhoeae DNA [employer] Phone: Comment on above: Once for 1 Occurrenc es starting 03/05/2022 until 03/05/2022 Continuous pulse oximetry Pulse oximetry, continuous Respiratory Care Routine Every 4hr until discontinued starting 02/11/2024 [employer] Comment on above: Every 4hr until disc ontinued starting 02/11/2024 End: 12-31-2020 Culture, Blood 1 Culture, Blood 1 Microbiology STAT One Time for 1 Occurrences starting 12/31/2020 until 12/31/2020 [employer] Work Phone: Comment on above: One Time for 1 Occur rences starting 12/31/2020 until 12/31/2020 Culture, Blood 1 [employer] Work Phone: End: 07-10-2020 Culture, Urine Culture, Urine Microbiology STAT One Time for 1 Occurrences starting 07/10/2020 until 07/10/2020 [employer] Comment on above: One Time for 1 Occur rences starting 07/10/2020 until 07/10/2020 Culture, Urine [employer], [employer] End: 03-05-2022 Culture, Urine [employer] Phone: Comment on above: Once for 1 Occurrenc es starting 03/05/2022 until 03/05/2022 DRUG TOX MONITORIGN 6 W/ CONF,URINE DRUG TOX MONITORIGN 6 W/ CONF,URINE Lab Routine Encounter for drug screening High risk medication use Ordered: 12/12/2024 [facility] Comment on above: Ordered: 12/12/2024 End: 02-11-2024 EKG 12 lead - PRN for Chest Pain or symptoms of ACS [employer] Comment on above: As Needed for 1 Occu rrences starting 02/11/2024 Every 30 Min for 2 O ccurrences starting 02/11/2024 until 02/11/2024, 1 completed As Needed for 999 Oc currences starting 02/11/2024 Oxygen therapy [[facility] Data Set] Initiate Oxygen Therapy Protocol Respiratory Care Routine As Needed until discontinued starting 02/11/2024 [employer] Work Phone: Comment on above: As Needed until disc ontinued starting 02/11/2024 End: 02-11-2024 Pediatric echo (TTE) complete [facility] Comment on above: One Time for 1 Occur rences starting 02/11/2024 until 02/11/2024 End: 09-21-2021 [facility] (3 VIEWS[facility] Comment on above: Once for 1 Occurrenc es starting 09/21/2021 until 09/21/2021 Immunizations Immunization Date Immunization Notes Care Provider Fa anita 05-11-2014 influenza, injectabl e, quadrivalent, preservative free Imad Asaad Other [employer] Other 04-18-2014 influenza, seasonal, injectable, preservative free Cici Fulton MD Work Phone: [facility] 04-18-2014 influenza virus vaccine, unspecified formulation Cici Fulton MD Work Phone: [facility] 06-02-2013 influenza, seasonal, injectable,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 HISTORY Her son has ADHD. I have reviewed and reconciled the history and medication list with the patient today. HISTORIES: PAST MEDICAL HISTORY: Past Medical History: Diagnosis Date ADHD (attention deficit hyperactivity disorder) ([facility]) Allergic rhinitis Congenital stenosis of aortic valve Encounter for insertion of Mirena IUD Essential hypertension (CMS/HCC) ADOLFO (generalized anxiety disorder) (CMS/HCC) GERD (gastroesophageal reflux disease) Heartburn Hx of being hospitalized childbirth Hx of being hospitalized [facility] age 5 Irregular menses Marijuana use Migraine Migraine headache (CMS/HCC) Morbid obesity with BMI of 40.0-44.9, adult (CMS/HCC) Raynaud's phenomenon Rupture of anterior cruciate ligament of left knee 03/31/2023 Subaortic membrane SURGICAL HISTORY: Past Surgical History: Procedure Laterality Date CARDIAC SURGERY 04/2011 Open Heart surgery - age 5 SECTION, LOW TRANSVERSE 07/07/2017 KNEE ARTHROSCOPY W/ MENISCECTOMY Left 03/2022 SOCIAL HISTORY: Social History Tobacco Use Smoking status: Never Smokeless tobacco: Never Vaping Use Vaping status: Never Used Substance Use Topics Alcohol use: Not Currently Comment: caffeine-1 to 2 cups per day soda/pop Drug use: Yes Types: Marijuana Depression: At risk (11/22/2024) PHQ-2 PHQ-2 Score: 3 FAMILY HISTORY: Family History Problem Relation Name Age of Onset Mental illness Mother Heart disease Mother Hypertension Mother Diabetes Father Heart disease Father Hypertension Father Mental illness Father Cancer Father Drug abuse Sister Other (vonsanderericad) Sister ADD / ADHD Son Ovarian cancer Maternal Grandmother Colon cancer Paternal Grandmother Mental illness Sibling Hypertension Sibling Heart disease Sibling Stroke Paternal Great-Grandmother MEDICATIONS: Current Outpatient Medications Medication Instructions citalopram (CELEXA) 20 mg, Oral, Daily lisinopril 30 mg, Oral, Daily metFORMIN (GLUCOPHAGE) 1,000 mg, Oral, Daily with breakfast omeprazole (PRILOSEC) 40 mg, Oral, Daily ALLERGIES: Allergies Allergen Reactions Atomoxetine Anaphylaxis Other Reaction(s): hypertension and tremors Other Reaction(s): hypertension and tremors Cardiac issues Aripiprazole Other Reaction(s): agitation Bupropion Other Reaction(s): Anger Estradiol Other Reaction(s): hypertension Lurasidone Other Reaction(s): arm pain/swelling Medroxyprogesterone Other Reaction(s): anxiety, weight gain Other Reaction(s): hypertension Other Reaction(s): anxiety, weight gain Cardiac issues Medroxyprogesterone Acetate Other Reaction(s): hypertension Medroxyprogesterone Acetate Other Quinolones Other Reaction(s): Aortic Aneurysm Sertraline Other Reaction(s): suicidal thoughts PHYSICAL EXAM: Visit Vitals BP (!) 146/98 (BP Location: Left arm, Patient Position: Sitting) Pulse 77 Ht 5' 3 Wt 233 lb SpO2 99% BMI 41.27 kg/m OB Status Having periods Smoking Status Never BSA 2.17 m BP Readings from Last 3 Encounters: 11/22/24 (!) 146/98 09/05/24 118/70 06/27/24 110/78 Wt Readings from Last 3 Encounters: 11/22/24 233 lb 09/05/24 225 lb 06/27/24 230 lb Physical Exam HENT: Mouth/Throat: Mouth: Mucous membranes are moist. Cardiovascular: Rate and Rhythm: Normal rate and regular rhythm. Heart sounds: No murmur heard. No friction rub. No gallop. Pulmonary: Effort: Pulmonary effort is normal. Breath sounds: Normal breath sounds. Skin: General: Skin is warm and dry. Neurological: Mental Status: She is alert and oriented to person, place, and time. Psychiatric: Thought Content: Thought content normal. Judgment: Judgment normal. Results ASSESSMENT AND PLAN: Assessment & Plan 1. ADOLFO (generalized anxiety disorder) (CMS/HCC) (Primary) Previous medications include Wellbutrin, Vyvanse, BuSpar, and Abilify, with Vyvanse being the most effective but discontinued due to irritability. Referral to a psychiatrist for comprehensive evaluation and treatment planning. Virtual consultation options discussed. Vyvanse will be restarted if psychiatric appointment cannot be secured within a week. Recommendations for self-care activities, including adequate sleep, outdoor exposure, and regular exercise, as well as listening to the [employer] podcast and [facility] for emotional support. Discussed possible counseling. She will think about this. She is to call if symptoms worsening. 2. Moderate major depression (CMS/HCC) As above. 3. Mixed bipolar affective disorder, mild (CMS/HCC) As above. 4. Attention deficit hyperactivity disorder (ADHD), predominantly inattentive type (CMS/HCC) As above. documented in this encounter [facility] 09-12-2024 Note Cici Fulton MD [address] [facility] [id number] September 12, 2024 Patient: Urmila Sosa Date of : 1995 Date of Visit: 09/12/2024 Dear Cici Fulton MD: I had the pleasure of seeing Urmila Sosa, at our pediatric cardiology clinic on 09/12/2024 for evaluation of Congenital aortic valve disease. Urmila is a 29 y.o. 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 She has previously also had aortic dilatation that is being followed as well. We currently have her on lisinopril for control of systemic hypertension and she has been doing better with improved overall compliance. For the most part, she tells me that she has not been to the emergency room or hospital for any cardiac reason. She denies any episodes of chest pain or any serious palpitations. She has not had dizziness or syncope and only occasionally has shortness of breath but she is not active and does not exercise. Some of the reason for her lack of activity has been her persistent knee injury which she is still not had surgery for. Her noncardiac review of systems is remarkable for recent laboratory studies that showed an elevated cholesterol and A1c requiring her to be started on metformin. She currently denies any significant gastrointestinal symptoms other than the fact that she stools more frequently than normal. Her menses is still irregular related to her polycystic ovarian syndrome. Overall her mood has still been quite depressed and she has had significant mood sways. She has been on Celexa and they have been weaning her Vyvanse and increasing her Celexa to cover her mental illness. She is still using marijuana frequently. Current Outpatient Medications Medication Sig Dispense Refill citalopram (CeleXA) 20 mg tablet Take 20 mg by mouth in the morning. lisdexamfetamine (Vyvanse) 10 MG capsule Take 10 mg by mouth in the morning. lisinopril 30 mg tablet Take 30 mg by mouth in the morning. metFORMIN (Glucophage) 500 mg tablet TAKE 1 TABLET BY MOUTH IN THE MORNING WITH MEALS omeprazole (PriLOSEC) [address] capsule Take 1 capsule by mouth in the morning. Vyvanse 30 mg capsule TAKE 1 CAPSULE BY MOUTH ONCE DAILY IN THE MORNING citalopram (CeleXA) 20 mg tablet Take 20 mg by mouth in the morning. omeprazole-sodium bicarbonate 20-1.1 mg-gram capsule omeprazole No current facility-administered medications for this visit. Allergies Allergen Reactions Atomoxetine Anaphylaxis Other Reaction(s): hypertension and tremors Cardiac issues Bupropion Other Reaction(s): Anger Medroxyprogesterone Other Reaction(s): hypertension Other Reaction(s): anxiety, weight gain Cardiac issues Review of Systems - Respiratory ROS, Gastrointestinal ROS, Genitourinary ROS, Hematologic, Endocrinologic ROS, Musculoskeletal, Immunologic, Infectious ROS, Neurologic ROS are unremarkable. On physical exam the patient was alert, cooperative, acyanotic and in no apparent distress. Vitals: 09/12/24 1159 BP: 146/84 BP Location: Right arm Patient Position: Sitting BP Cuff Size: Adult long Pulse: 84 SpO2: 99% Weight: 104 kg (228 lb 13.4 oz) Height: 1.609 m (5' 3.35 ) Repeat blood pressure today was 126/84 mmHg. HEENT was normal. Lungs were clear to auscultation. Neck exam demonstrated no JVD or LAURYN. Chest was normal active without thrill. There was a regular rate and rhythm with a normal S1 and S2 with physiologic splitting of the S2. There was an audible grade 2+/6 systolic ejection murmur which was low-frequency and heard at the right upper parasternal border with an easily audible grade 2/4 high-frequency diastolic decrescendo murmur consistent with aortic regurgitation. Abdominal examination continues to show her to be overweight with abdominal striae and she had a soft nontender abdomen. There was no hepatosplenomegaly evident on examination. Peripheral extremities demonstrated symmetrical pulses and pulse pressure without BF delay. No clubbing, cyanosis, or edema was seen with normal capillary refill. Skin & joint exam was normal. EKG demonstrated: Sinus rhythm at a rate of 61 bpm with normal cardiac intervals there was abnormal initial ventricular activation to the left and posterior with slight repolarization abnormality in the V6 precordial lead and in the inferior leads. There was no evidence of atrial or ventricular hypertrophy. 2023 Echocardiogram demonstrated: S/P repair of discrete subaortic stenosis A) Functionally bicuspid aortic valve with thickened aortic valve leaflets and fusion between the left and right cusps. B) Mild aortic valve stenosis with peak/mean pressure gradient= 18-22/7-10 mmHg. C) Mild-plus aortic valve insufficiency. Moderate to severely dilated ascending aorta= 43-45 mm ( z score= 4.69 ; [place] (more content not included)... [facility] 09-05-2024 History of Presen t illness Narrative Images from the original note were not included. Urmila Sosa is a 29 y.o. female presents with chief complaint of Annual Exam (She did not have lab prior to visit, new order created. ) HPI: History of Present Illness Patient presents today for follow up of chronic medical problems. She reports that her anxiety medication has been significantly beneficial. However, she has been experiencing heightened emotional sensitivity over the past few weeks, characterized by frequent crying episodes. She also discloses recurrent suicidal ideation, a symptom not present since her teenage years. She attributes these symptoms to the stress of losing her job in 06/2024 and the subsequent financial strain. Despite recently returning to work, she continues to struggle with daily feelings of distress. She has been on citalopram for approximately 6 months, which she finds effective for her anxiety but less so for her current depressive symptoms. She has been on Vyvanse for about 2 years and questions its continued efficacy, although she does not report any issues with focus or productivity at work. She recalls an experiment where she took only citalopram, which resulted in fatigue. She expresses a desire to take a break from Vyvanse to address her depression and anxiety, which she considers more pressing concerns. She notes that caffeine consumption in the morning seems to improve her mood. She also mentions an incident at work where she felt overly focused, leading her to question if her Vyvanse dosage might be too high. She believes that improving her mental health and resolving her depression will enhance her focus. She was previously on Ozempic but discontinued it due to financial constraints. She has not regained the weight she lost while on the medication, which totaled 15 pounds, bringing her weight down from nearly 240 pounds. She plans to resume Ozempic when feasible. She has not used any other weight loss medications. She reports no changes in bowel or bladder habits. She suspects she contracted COVID-19 during a trip to [place] last month, although she did not undergo testing. She experienced illness upon her return, as did her friend, but has since recovered. SOCIAL HISTORY She is currently employed at [employer]. I have reviewed and reconciled the history and medication list with the patient today. HISTORIES: PAST MEDICAL HISTORY: Past Medical History: Diagnosis Date ADHD (attention deficit hyperactivity disorder) (CMS/[facility]) Allergic rhinitis Congenital stenosis of aortic valve Encounter for insertion of Mirena IUD Essential hypertension (CMS/HCC) ADOLFO (generalized anxiety disorder) (CMS/[facility]) GERD (gastroesophageal reflux disease) Heartburn Hx of being hospitalized childbirth Hx of being hospitalized [facility] age 5 Irregular menses Marijuana use Migraine (CMS/HCC) Migraine headache (CMS/HCC) Morbid obesity with BMI of 40.0-44.9, adult (CMS/[facility]) Raynaud's phenomenon Rupture of anterior cruciate ligament of left knee 03/31/2023 Subaortic membrane SURGICAL HISTORY: Past Surgical History: Procedure Laterality Date CARDIAC SURGERY 04/2011 Open Heart surgery - age 5 SECTION, LOW TRANSVERSE 07/07/2017 KNEE ARTHROSCOPY W/ MENISCECTOMY Left 03/2022 SOCIAL HISTORY: Social History Tobacco Use Smoking status: Never Smokeless tobacco: Never Vaping Use Vaping status: Never Used Substance Use Topics Alcohol use: Not Currently Comment: caffeine-1 to 2 cups per day soda/pop Drug use: Yes Types: Marijuana Depression: At risk (09/05/2024) PHQ-2 PHQ-2 Score: 3 FAMILY HISTORY: Family History Problem Relation Name Age of Onset Mental illness Mother Heart disease Mother Hypertension Mother Diabetes Father Heart disease Father Hypertension Father Mental illness Father Cancer Father Drug abuse Sister Other (kalie) Sister ADD / ADHD Son Ovarian cancer Maternal Grandmother Colon cancer Paternal Grandmother Mental illness Sibling Hypertension Sibling Heart disease Sibling Stroke Paternal Great-Grandmother MEDICATIONS: Current Outpatient Medications Medication Instructions citalopram (CELEXA) 20 mg, Oral, Daily lisdexamfetamine (VYVANSE) 30 mg, Oral, Every morning lisinopril 30 mg, Oral, Daily metFORMIN (GLUCOPHAGE) 500 mg, Oral, Daily with breakfast omeprazole (PRILOSEC) 40 mg, Oral, Daily semaglutide (Ozempic) 2 MG/1.5ML solution pen-injector FIRST MONTH inject 0.25 mg under the skin once weekly; then SECOND MONTH inject 0.5 mg under the skin 1 (one) time per week for 4 doses. ALLERGIES: Allergies Allergen Reactions Atomoxetine Anaphylaxis Other Reaction(s): hypertension and tremors Other Reaction(s): hypertension and tremors Cardiac issues Medroxyprogesterone Acetate Other Sertraline Other Reaction(s): suicidal thoughts Aripiprazole Other Reaction(s): agitation Bupropion Other Reaction(s): Anger Estradiol Other Reaction(s): hypertension Lurasidone Other Reaction(s): arm pain/swelling Medroxyprogesterone Other Reaction(s): anxiety, weight gain Other Reaction(s): hypertension Other Reaction(s): anxiety, weight gain Cardiac issues Medroxyprogesterone Acetate Other Reaction(s): hypertension Quinolones Other Reaction(s): Aortic Aneurysm PHYSICAL EXAM: Visit Vitals BP 118/70 (BP Location: Left arm, Patient Position: Sitting) Pulse 72 Ht 5' 3 Wt 225 lb SpO2 95% BMI 39.86 kg/m OB Status Having periods Smoking Status Never BSA 2.13 m BP Readings from Last 3 Encounters: 09/05/24 118/70 06/27/24 110/78 06/09/24 110/78 Wt Readings from Last 3 Encounters: 09/05/24 225 lb 06/27/24 230 lb 06/09/24 230 lb Physical Exam Vitals reviewed. Constitutional: General: She is not in acute distress. Appearance: Normal appearance. Neck: Vascular: No carotid bruit. Cardiovascular: Rate and Rhythm: Normal rate and regular rhythm. Pulmonary: Breath sounds: Normal breath sounds. No wheezing or rhonchi. Musculoskeletal: Cervical back: Neck supple. Right lower leg: No edema. Left lower leg: No edema. Lymphadenopathy: Cervical: No cervical adenopathy. Skin: General: Skin is warm and dry. Neurological: Mental Status: She is alert. Results ASSESSMENT AND PLAN: Assessment & Plan 1. Annual physical exam (Primary) Doing well. Regular exercise and a healthy diet is recommended. Exam is unremarkable. Health maintenance was reviewed. Call if any new health issues arise. Otherwise, will reassess again in one year. - Lipid panel; Future - Lipid panel 2. Essential hypertension (CMS/HCC) Blood pressure doing well. Continue lifestyle modifications to include minimizing salt and alcohol, exercising regularly, and keeping weight down. Continue current medications. - CBC and differential; Future - Comprehensive metabolic panel; Future - Lipid panel; Future - Vitamin D 25 hydroxy Total; Future - CBC and differential - Comprehensive metabolic panel - Lipid panel - Vitamin D 25 hydroxy Total 3. Prediabetes Exercise regularly to help increase sensitivity to insulin and help with weight loss. Add weightlifting or resistance training with bands at least 3 days per week. Eat a healthy diet that is high in protein and lower in carbohydrates such as bread and pasta. Avoid or minimize processed foods. - Hemoglobin a1c with eag; Future - Hemoglobin a1c with eag 4. Attention deficit hyperactivity disorder (ADHD), predominantly inattentive type (CMS/HCC) Will try tapering off of Vyvanse as below. - lisdexamfetamine (Vyvanse) 10 MG capsule; Take 2 capsules (20 mg) by mouth Daily for 7 days, THEN 1 capsule (10 mg) Daily for 7 days, THEN 1 capsule (10 mg) every other day for 7 days. Dispense: 24 capsule; Refill: 0 5. Bipolar disorder, current episode mixed, mild (CMS/HCC) Stable. Continue to monitor. 6. Major depressive disorder, single episode, moderate (HCC) (CMS/HCC) Her symptoms of emotional lability and suicidal thoughts may be exacerbated by the long-term use of Vyvanse, a stimulant medication. The potential interaction between Vyvanse and citalopram precludes an increase in the latter's dosage. A temporary discontinuation of Vyvanse is recommended to assess its impact on her emotional state. She is advised to maintain adequate sleep and caffeine intake during this period. A prescription for a tapering regimen of Vyvanse will be provided, which she can commence upon receipt. She is instructed to continue her current medication until the new prescription is received. If her focus deteriorates after discontinuing Vyvanse, a reintroduction at a lower dose will be considered. 7. ADOLFO (generalized anxiety disorder) ([facility]) As above. 8. Thoracic aortic aneurysm without rupture, unspecified part ([facility]) Stable. Continue to monitor. 9. Nonrheumatic aortic valve stenosis Stable. Continue to monitor. She follows with cardiology. 10. Vitamin D deficiency She should take Vitamin d 200 units daily. - Vitamin D 25 hydroxy Total; Future - Vitamin D 25 hydroxy Total 11. Severe obesity (BMI 35.0-39.9) with comorbidity ([facility]) She has previously lost 15 pounds on Ozempic but discontinued it due to cost. Adipex is suggested as a potential weight loss aid, pending cardiology clearance, given its affordability compared to Ozempic. 12. BMI 40.0-44.9, adult ([facility]) As above. 13. Medication management - CBC and differential; Future - Vitamin B12; Future - CBC and differential - Vitamin B12 documented in this encounter [facility] 08-22-2024 Telephone encounter Note Pt requesting a refill on Vyvanse to Jose D Fry [facility] 08-22-2024 Miscellaneous Notes Pt requesting a refill on Vyvanse to Jose D Fry documented in this encounter [facility] 07-05-2024 Telephone encounter Note RC Scheduled on 08/09/24--Has Medicaid [facility] 07-05-2024 Miscellaneous Notes RC Scheduled on 08/09/24--Has Medicaid documented in this encounter [facility] 06-30-2024 Telephone encounter Note LVM to RC in regard to BUE referral breezy Mccollum--approved to schedule--has [place] Medicaid [facility] 06-30-2024 Miscellaneous Notes LVM to RC in regard to BUE referral breezy Mccollum--approved to schedule--has [place] Medicaid documented in this encounter [facility] 06-27-2024 History of Presen t illness Narrative Images from the original note were not included. Subjective Patient ID: Urmila Sosa (: 1995) is a 29 y.o. female who presents for Numbness. HPI History of Present Illness The patient presents for evaluation of numbness and tingling in her right hand. She has been experiencing these symptoms for approximately a month. The symptoms began while she was using a screw gun at work and have persisted since then. The numbness and tingling are constant and intensify upon touch. She reports no pain radiating down her arm or any neck discomfort. The condition has progressed to the point where it interferes with her daily activities, such as tying her shoelaces. She has also noticed a tendency to drop objects. Despite trying various remedies, including pain patches, she has found no relief. Her director of security strength has noticeably weakened. She has not taken prednisone or similar medications in the past. She is currently on metformin for Polycystic Ovary Syndrome (PCOS). Current Outpatient Medications Medication Instructions citalopram (CELEXA) 20 mg, Oral, Daily lisdexamfetamine (VYVANSE) 30 mg, Oral, Every morning lisinopril 30 mg, Oral, Daily metFORMIN (GLUCOPHAGE) 500 mg, Oral, Daily with breakfast methylPREDNISolone (Medrol Dospak) 4 MG tablets Follow schedule on package instructions omeprazole (PRILOSEC) 40 mg, Oral, Daily semaglutide (Ozempic) 2 MG/1.5ML solution pen-injector FIRST MONTH inject 0.25 mg under the skin once weekly; then SECOND MONTH inject 0.5 mg under the skin 1 (one) time per week for 4 doses. Allergies Allergen Reactions Atomoxetine Anaphylaxis Other Reaction(s): hypertension and tremors Other Reaction(s): hypertension and tremors Cardiac issues Estradiol Other Reaction(s): hypertension Sertraline Other Reaction(s): suicidal thoughts Aripiprazole Other Reaction(s): agitation Bupropion Other Reaction(s): Anger Lurasidone Other Reaction(s): arm pain/swelling Medroxyprogesterone Other Reaction(s): anxiety, weight gain Other Reaction(s): hypertension Other Reaction(s): anxiety, weight gain Cardiac issues Medroxyprogesterone Acetate Other Reaction(s): hypertension Quinolones Other Reaction(s): Aortic Aneurysm Patient Active Problem List Diagnosis ADHD (attention deficit hyperactivity disorder) (CMS/HCC) Bicuspid aortic valve Essential hypertension (CMS/HCC) ADOLFO (generalized anxiety disorder) (CMS/HCC) GERD (gastroesophageal reflux disease) Moderate major depression (CMS/HCC) Morbid obesity (CMS/HCC) Nonalcoholic fatty liver disease Raynauds phenomenon Thoracic aortic aneurysm without rupture (CMS/HCC) Vitamin D deficiency Allergic rhinitis Subaortic membrane Social anxiety disorder (CMS/HCC) Arrhythmia Aortic stenosis Aortic regurgitation Subaortic stenosis Family history of chromosomal abnormality Mixed bipolar affective disorder, mild (CMS/HCC) History of migraine headaches Review of Systems Constitutional: Negative for chills, fatigue and fever. Neurological: Positive for weakness and numbness. Objective Vital signs: BP 110/78 (Patient Position: Sitting) Pulse 66 Resp 16 Ht 5' 3 Wt 230 lb SpO2 99% BMI 40.74 kg/m Physical Exam Constitutional: Appearance: Normal appearance. HENT: Head: Normocephalic. Eyes: Pupils: Pupils are equal, round, and reactive to light. Musculoskeletal: Comments: Right thumb with decrease sensation. RUE strength 4/5. R hand with full ROM. Skin: General: Skin is warm and dry. Neurological: Mental Status: She is alert and oriented to person, place, and time. Psychiatric: Mood and Affect: Mood normal. Assessment/Plan Assessment & Plan 1. Right hand numbness and tingling. The patient reports experiencing numbness and tingling in the right hand for about a month, which began after using a screw gun at work. The symptoms are constant and painful, affecting her ability to perform certain tasks. There is no pain radiating down the arm or neck pain. An EMG is recommended to confirm the diagnosis. A prescription for a prednisone dose pack has been given to her recently by Dr. Gimenez and she did not take it. She will start that today. She is advised to avoid taking the evening dose to prevent insomnia. A referral to Dr. Frye in Neurology for an EMG has been made. If the EMG results indicate carpal tunnel syndrome, a referral to Orthopedics will be made. Paperwork for light duty at work will be completed. She is also advised to use a brace at night for additional support. Problem List Items Addressed This Visit None Visit Diagnoses Numbness and tingling of right thumb - Primary Decreased director of security strength of right hand Health Maintenance Topic Date Due Influenza Vaccine (1)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 OCD & Adhd Weight Gain Reason Onset Date Comments referral and medication 11/23/2024 Reason Comments Psychiatric Evaluation Specialty Diagnoses / Procedures Referred By Edita t Referred To Contact Behavioral Health Diagnoses Anxiety disorder, unspecified Depression, unspecified ([facility]) Procedures [place] OFFICE/OUTPATIENT NEW HIGH MDM 60 MINUTES Susie Alaniz, GANG DRILL OPERATOR [address] [facility] [address] [place] [address] Phone: tel: fax: Sumeet Barron, [facility] [address] [facility] [address] [place] [address] Phone: tel: fax: Referral ID Status Reason Start Date Expiration Date V isits Requested Visits Authorized [id number] Closed Specialty Services Required 11/23/2024 05/22/2025 1 1 Reason Onset Date Comments Med Refill 12/22/2024 Reason Comments Vaginal Bleeding Pt recently found ou t she is ,complains of bleeding and intense cramping. Pt was seen in [place] yesterday and was told her hcg was 20 and US did not show gestational sac, was told to come to ER if bleeding increased. Reason Onset Date Comments Med Refill 01/31/2025 PRN Active and Recently Administ ered Medications [...] STD infection 1607 (Given - Provid er: Mrack Day RN) No Frequency Medication Order 03/03/2022 03/04/2022 03/05/2022 sterile water injection 1 dose, Starting on Thu03/05/22 at 1603, Until Thu03/06/22 at 0414, Marck Day: cabinet override, Marck [...] (Given - Provid er: Izabella Bob RN) Scheduled Medication Order 02/09/2024 02/10/2024 02/11/2024 aspirin chewable tablet 81 mg 81 mg, Oral, DAILY, First dose on Thu02/12/24 at 0900, Until Discontinued 1213 (Held by [facility] - Provider: Endy Skelton MD - Reason: Other) lisdexamfetamine (VYVANSE) capsule 30 mg (Patient Supplied) 30 mg, Oral, EVERY MORNING, First dose on Thu02/11/24 at 1300, Until Discontinued, We do not have this medication in stock, and there is no direct substitute, or substitute was declined. The medication is marked patient supplied, however if the patient cannot provide their own medication then contact the prescriber for an alternative. 1245 (Not Given - Pr ovider: Talisha Martinez RN - Reason: Patient/family refused - Comment: pt states she does not want to take this late in the day.) lisinopril (PRINIVIL;ZESTRIL) tablet 30 mg 30 mg, Oral, DAILY, First dose on Thu02/11/24 at 1245, Until Discontinued 1313 (Given - Provid er: Talisha Martinez RN) metFORMIN (GLUCOPHAGE-XR) extended release tablet 500 mg 500 mg, Oral, DAILY WITH BREAKFAST, First dose on Thu02/12/24 at 0800, Until Discontinued, Do not crush or break. metoprolol tartrate (LOPRESSOR) tablet 25 mg (CANCELED) 25 mg, Oral, 2 TIMES DAILY, First dose on Thu02/11/24 at 0900, Until Discontinued, May cancel order if already on a Beta Chelsea started from home. Do not duplicate therapies. Hold for HR <55 or SBP <100 1001 (Given - Provid er: Talihsa Martinez RN) pantoprazole (PROTONIX) tablet 40 mg 40 mg, Oral, DAILY BEFORE BREAKFAST, First dose on Thu02/12/24 at 0700, Until Discontinued, Do not crush or break. Substituted for Omeprazole (PRILOSEC). sodium chloride flush 0.9 % injection 5-40 mL 5-40 mL, IntraVENous, EVERY 12 HOURS SCHEDULED (2 times per day), First dose on Leann 02/11/24 at 0900, Until Discontinued, For Line Patency: Peripheral IV = 5 mL; Midline or Central Line = 10 mL/lumen. If following IV push medication, administer flush at same rate as the IV push. Flush volume is determined by type of infusion therapy being given. For non-viscous solutions use: Peripheral IV = 5 mL Midline or Central Line = 10 mL/lumen For viscous solutions (i.e. blood components, parenteral nutrition, contrast media, or after obtaining blood sample) use: Peripheral IV = 10 mL Midline or Central Line = 20 mL/lumen 0934 (Not Given - Pr ovider: Talisha Martinez RN - Reason: IV Fluid Infusing)2100 (Due) Continuous Medication Order 02/09/2024 02/10/2024 02/11/2024 0.9 % sodium chloride infusion IntraVENous, at 75 mL/hr, CONTINUOUS, Starting on Leann 02/11/24 at 0445, For 48 hours 0453 (New Bag - Prov ider: Regan James RN) PRN Medication Order 02/09/2024 02/10/2024 02/11/2024 0.9 % sodium chloride infusion IntraVENous, at 5-250 mL/hr, PRN, if patient receiving piggyback infusions and maintenance fluids are not ordered OR KVO fluids to protect IV site / prevent frequent line interruptions/ long duration, Starting on Leann 02/11/24 at 0423, For piggyback infusion, administer at same rate as piggyback for a total of 25 mL. Enter 25 mL into dose field and piggyback rate into rate field of order. If piggyback is infusing at a rate less than 100 mL/hr, enter 25 mL into dose field and 100 mL/hr into rate field of order. For KVO fluids, enter rate of 20 mL/hr or less into rate field of order. acetaminophen (TYLENOL) suppository 650 mg(Linked Group 1) 650 mg, Rectal, EVERY 6 HOURS PRN, Starting on Leann 02/11/24 at 0423, Until Discontinued, Pain Mild (1-3), Fever, For temp greater than 100.4 F (38 C), Administer if oral route cannot be used. acetaminophen (TYLENOL) tablet 650 mg(Linked Group 1) 650 mg, Oral, EVERY 6 HOURS PRN, Starting on Leann 02/11/24 at 0423, Until Discontinued, Pain Mild (1-3), Fever, For temp greater than 100.4 F (38 C), Maximum dose of acetaminophen is 4000 mg from all sources in 24 hours. magnesium hydroxide (MILK OF MAGNESIA) 400 MG/5ML suspension 30 mL 30 mL, Oral, DAILY PRN, Starting on Leann 02/11/24 at 0423, Until Discontinued, Constipation, First line therapy for constipation. magnesium sulfate 1000 mg in dextrose 5% 100 mL IVPB 1,000 mg, IntraVENous, at 100 mL/hr, Administer over 1 Hours, PRN, Other, Per IV Magnesium Replacement Protocol, Starting on Leann 02/11/24 at 0423, Mg Lab Replacement Action 1.4-1.6 1 gram IVPB x 2 doses (2 gram Total) 1.0-1.3 1 gram IVPB x 4 doses (4 gram Total) <1.0 CALL PHYSICIAN and 1 gram IVPB x 4 doses (4 gram Total) Infuse at 1 gram/hr Repeat Mag level next AM Protocol not for use in Patients with CrCl<30ml/min nitroGLYCERIN (NITROSTAT) SL tablet 0.4 mg 0.4 mg, SubLINGual, EVERY 5 MIN PRN, Starting on Leann 02/11/24 at 0423, Until Discontinued, Chest pain, Place 1 tablet under tongue upon chest pain, wait 5 minutes and may repeat up to 3 doses in 15 minutes. Do not crush or break. ondansetron (ZOFRAN) injection 4 mg(Linked Group 2) 4 mg, IntraVENous, EVERY 6 HOURS PRN, Starting on Leann 02/11/24 at 0423, Until Discontinued, Nausea, Vomiting, Administer if oral route cannot be used. ondansetron (ZOFRAN-ODT) disintegrating tablet 4 mg(Linked Group 2) 4 mg, Oral, EVERY 8 HOURS PRN, Starting on Leann 02/11/24 at 0423, Until Discontinued, Nausea, Vomiting potassium bicarb-citric acid (EFFER-K) effervescent tablet 40 mEq(Linked Group 3) 40 mEq, Oral, PRN, Starting on Leann 02/11/24 at 0423, Until Discontinued, Per Potassium Replacement Protocol, Administer as alternative if patient unable to tolerate oral tablet. K Lab Replacement Action 3.1 to 3.5 40 mEq ORAL x 1 Under 3.1 Refer to IV replacement protocol Recheck K level in AM. Protocol not for use in patients with CrCl less than 30 mL/min. Do not chew or crush. Dissolve flavored tablets completely in 3 to 4 ounces of cold water; unflavored tablets may be dissolved in 3 to 4 ounces of cold juice. Patient to sip slowly over a 5 to 10 minute period. May further dilute if GI adverse effects occur. potassium chloride (KLOR-CON M) extended release tablet 40 mEq(Linked Group 3) 40 mEq, Oral, PRN, Starting on Leann 02/11/24 at 0423, Until Discontinued, Potassium Replacement, May give alternative linked oral order (ordered as effervescent, packet, or liquid solution) if patient unable to tolerate tablet. K Lab Replacement Action 3.1 to 3.5 40 mEq ORAL x 1 Under 3.1 Refer to IV replacement protocol Recheck K level in AM. Protocol not for use in patients with CrCl less than 30 mL/min. Do not crush, chew, or suck on tablet. Tablet may also be broken in half and each half swallowed separately. potassium chloride 10 mEq/100 mL IVPB (Peripheral Line)(Linked Group 3) 10 mEq, IntraVENous, PRN, Starting on Leann 02/11/24 at 0423, Until Discontinued, at 100 mL/hr, Potassium Replacement, K Lab Replacement Action 2.7-3.0 10 mEq IVPB x 6 doses (60 mEq Total) < 2.7 CALL PHYSICIAN and 10 mEq IVPB x 6 doses (60 mEq Total) Infuse at 10 mEq/hr Repeat Potassium lab 1 hour after final administration. Not for use in patients with CrCl less than 30 mL/min. sodium chloride flush 0.9 % injection 10 mL 10 mL, IntraVENous, PRN, Starting on Leann 02/11/24 at 0423, Until Discontinued, Line Care, After every IV line use Linked Groups Order Group 1: acetaminophen (TYLENOL) tablet 650 mgJump to med 650 mg, Oral, EVERY 6 HOURS PRN, Starting on Leann 02/11/24 at 0423, Until Discontinued, Pain Mild (1-3), Fever, For temp greater than 100.4 F (38 C)
Maximum dose of acetaminophen is 4000 mg from all sources in 24 hours.
Or acetaminophen (TYLENOL) suppository 650 mgJump to med 650 mg, Rectal, EVERY 6 HOURS PRN, Starting on Leann 02/11/24 at 0423, Until Discontinued, Pain Mild (1-3), Fever, For temp greater than 100.4 F (38 C)
Administer if oral route cannot be used.
Group 2: ondansetron (ZOFRAN-ODT) disintegrating tablet 4 mgJump to med 4 mg, Oral, EVERY 8 HOURS PRN, Starting on Leann 02/11/24 at 0423, Until Discontinued, Nausea, Vomiting Or ondansetron (ZOFRAN) injection 4 mgJump to med 4 mg, IntraVENous, EVERY 6 HOURS PRN, Starting on Leann 02/11/24 at 0423, Until Discontinued, Nausea, Vomiting
Administer if oral route cannot be used.
Group 3: potassium chloride (KLOR-CON M) extended release tablet 40 mEqJump to med 40 mEq, Oral, PRN, Starting on Leann 02/11/24 at 0423, Until Discontinued, Potassium Replacement
May give alternative linked oral order (ordered as effervescent, packet, or liquid solution) if patient unable to tolerate tablet. K Lab Repla cemen t Action 3.1 to 3.5 40 mEq ORAL x 1 Under 3.1 Refer to IV replacement protocol Recheck K level in AM. Protocol not for use in patients with CrCl less than 30 mL/min. Do not crush, chew, or suck on tablet. Tablet may also be broken in half and each half swallowed separately.
Or potassium bicarb-citric acid (EFFER-K) effervescent tablet 40 mEqJump to med 40 mEq, Oral, PRN, Starting on Leann 02/11/24 at 0423, Until Discontinued, Per Potassium Replacement Protocol
Administer as alternative if patient unable to tolerate oral tablet. K Lab Repla cemen t Action 3.1 to 3.5 40 mEq ORAL x 1 Under 3.1 Refer to IV replacement protocol Recheck K level in AM. Protocol not for use in patients with CrCl less than 30 mL/min. Do not chew or crush. Dissolve flavored tablets completely in 3 to 4 ounces of cold water; unflavored tablets may be dissolved in 3 to 4 ounces of cold juice. Patient to sip slowly over a 5 to 10 minute period. May further dilute if GI adverse effects occur.
Or potassium chloride 10 mEq/100 mL IVPB (Peripheral Line)Jump to med 10 mEq, IntraVENous, PRN, Starting on Leann 02/11/24 at 0423, Until Discontinued, at 100 mL/hr, Potassium Replacement
K Lab Replacement Action 2.7-3.0 10 mEq IVPB x 6 doses (60 mEq Total) < 2.7 CALL PHYSICIAN and 10 mEq IVPB x 6 doses (60 mEq Total) Infuse at 10 mEq/hr Repeat Potassium lab 1 hour after final administration. Not for use in patients with CrCl less than 30 mL/min.
Care Teams (unrecognized sec tion and content) Regional Director Of Finance Relationship Specialty Start Date End Date Cici Fulton PCP - General 03/28/15 Regional Director Of Finance Relationship Specialty Start Date End Date Cici Fulton PCP - General 03/28/15 Regional Director Of Finance Relationship Specialty Start Date End Date Cici Fulton PCP - General 03/28/15 Regional Director Of Finance Relationship Specialty Start Date End Date Cici Fulton PCP - General 03/28/15 Regional Director Of Finance Relationship Specialty Start Date End Date Cici Fulton PCP - General 03/28/15 Regional Director Of Finance Relationship Specialty Start Date End Date Cici Fulton PCP - General 03/28/15 Regional Director Of Finance Relationship Specialty Start Date End Date Cici Fulton PCP - General 03/28/15 Regional Director Of Finance Relationship Specialty Start Date End Date Cici Fulton MD PCP - General 03/28/15 Regional Director Of Finance Relationship Specialty Start Date End Date Cici Fulton MD [address] [place] [address] PCP - General Internal Medicine 03/11/23 Parag Feliciano PA 112 [facility] [address] [place] [address] [facility] 02/08/24 Renetta Hobbs, RN Registered Nurse Family Medicine 05/10/24 Regional Director Of Finance Relationship Specialty Start Date End Date Cici Fulton MD [address] [place] [address] PCP - General Internal Medicine 03/11/23 Parag Feliciano PA [address] [place] [address] PCP - [facility] 02/08/24 Renetta Hobbs, KATIE Registered Nurse Family Medicine 05/10/24 Regional Director Of Finance Relationship Specialty Start Date End Date Cici Fulton MD [address] [place] [address] PCP - General Internal Medicine 03/11/23 Renetta Hobbs RN Registered Nurse Family Medicine 05/10/24 Regional Director Of Finance Relationship Specialty Start Date End Date Cici Fulton MD [address] [place] [address] PCP - General Internal Medicine 03/11/23 Regional Director Of Finance Relationship Specialty Start Date End Date Cici Fulton MD [address] [place] [address] PCP - General Internal Medicine 03/11/23 Renetta Hobbs RN Registered Nurse Family Medicine 05/10/24 06/28/24 Regional Director Of Finance Relationship Specialty Start Date End Date Cici Fulton MD [address] [place] [address] PCP - General Internal Medicine 03/11/23 Renetta Hobbs RN Registered Nurse Family Medicine 05/10/24 06/28/24 Regional Director Of Finance Relationship Specialty Start Date End Date Cici Fulton MD [address] [place] [address] PCP - General Internal Medicine 03/11/23 Renetta Hobbs, KATIE Registered Nurse Family Medicine 05/10/24 06/28/24 Regional Director Of Finance Relationship Specialty Start Date End Date Cici Fulton MD [address] [place] [address] PCP - General Internal Medicine 03/11/23 Regional Director Of Finance Relationship Specialty Start Date End Date Cici Fulton MD [address] [place] [address] PCP - General Internal Medicine 03/11/23 Regional Director Of Finance Relationship Specialty Start Date End Date Cici Fulton MD [address] [place] [address] PCP - General Internal Medicine 03/11/23 Parag Feliciano PA [address] [facility] [address] [place] [address] PCP - [facility] 02/08/24 Regional Director Of Finance Relationship Specialty Start Date End Date Cici Fulton MD [address] [place] [address] PCP - General Internal Medicine 03/11/23 Parag Feliciano PA [address] [facility] [address] [place] [address] PCP - [facility] 02/08/24 Regional Director Of Finance Relationship Specialty Start Date End Date Cici Fulton MD [address] [place] [address] PCP - General Internal Medicine 03/11/23 Regional Director Of Finance Relationship Specialty Start Date End Date Cici Fulton MD [address] [place] [address] PCP - General Internal Medicine 03/11/23 Regional Director Of Finance Relationship Specialty Start Date End Date Cici Fulton MD [address] [place] [address] PCP - General Internal Medicine 03/11/23 Yadira Spencer NP [address] [place] [address] PCP - [facility] 08/10/24 Regional Director Of Finance Relationship Specialty Start Date End Date Cici Fulton MD [address] [place] [address] PCP - General Internal Medicine 03/11/23 Yadira Spencer NP [address] [place] [address] PCP - [facility] 08/10/24 Regional Director Of Finance Relationship Specialty Start Date End Date Cici Fulton MD [address] [place] [address] PCP - [facility] Internal [facility] 03/11/23 Yadira Spencer NP [address] [place] [address] PCP - [facility] 08/10/24 Regional Director Of Finance Relationship Specialty Start Date End Date Cici Fulton MD [address] [place] [address] PCP - General Internal Medicine 03/11/23 Yadira Spencer NP [address] [place] [address] PCP - [facility] 08/10/24 Sumeet Barron [facility] [address] [place] [phone] Nurse Practitioner Behavioral Health 12/12/24 Endy Skelton MD [address] [place] [phone] Referring Physician Pediatric Cardiology 12/12/24 Regional Director Of Finance Relationship Specialty Start Date End Date Cici Fulton MD [address] [address] PCP - General Internal Medicine 03/11/23 Yadira Spencer NP [address] [place] [address] PCP - [facility] 08/10/24 Sumeet Barron [facility] [address] [place] [phone] Nurse Practitioner Behavioral Health 12/12/24 Endy Skelton MD [address] [place] [phone] Referring Physician Pediatric Cardiology 12/12/24 Regional Director Of Finance Relationship Specialty Start Date End Date Cici Fulton MD PCP - General 03/28/15 Regional Director Of Finance Relationship Specialty Start Date End Date Cici Fulton MD [address] [address] PCP - General Internal Medicine 03/11/23 Yadira Spencer NP [address] [place] [address] PCP - [facility] 08/10/[facility] [address] [phone] Nurse Practitioner Behavioral Health 12/12/24 Endy Skelton MD [address] [place] [address] Referring Physician Pediatric Cardiology 12/12/24 Regional Director Of Finance Relationship Specialty Start Date End Date Cici Fulton MD [address] [address] PCP - General Internal Medicine 03/11/23 Yadira Spencer NP [address] [place] [address] PCP - [facility] 08/10/24 Sumeet Barron, [facility] [address] [address] Nurse Practitioner Behavioral Health 12/12/24 Endy Skelton MD [address] [place] [phone] Referring Physician Pediatric Cardiology 12/12/24 Regional Director Of Finance Relationship Specialty Start Date End Date Cici Fulton MD [address] [address] PCP - General Internal Medicine 03/11/23 Yadira Spencer NP [address] [place] [address] PCP - [facility] 08/10/24 [facility] 112 [facility] [address] [place] [phone] Nurse Practitioner Behavioral Health 12/12/24 Endy Skelton MD [address] [place] [address] Referring Physician Pediatric Cardiology 12/12/24 Regional Director Of Finance Relationship Specialty Start Date End Date C[facility]ulton MD [address] [facility] [address] [place] [address] PCP - General Internal Medicine 03/11/23 Yadira Spencer NP [address] [place] [address] PCP - [facility] 08/10/24 Sumeet Barron, [facility] 112 [facility] [address] [place] [phone] Nurse Practitioner Behavioral Health 12/12/24 Endy Skelton MD [address] [place] [phone] Referring Physician Pediatric Cardiology 12/12/24 Regional Director Of Finance Relationship Specialty Start Date End Date Cici Fulton MD PCP - General 03/28/15 INFORMATION SOURCE (unrecogn ized section and content) DATE CREATED AUTHOR 09/21/2021 [facility] DATE CREATED AUTHOR AUTHOR'S ORGANIZ ATION 09/24/2021 [facility] dical Specialist DATE CREATED AUTHOR AUTHOR'S ORGANIZ ATION 12/17/2022 [facility] DATE CREATED AUTHOR AUTHOR'S ORGANIZ ATION 02/12/2024 [facility] DATE CREATED AUTHOR AUTHOR'S ORGANIZ ATION 02/28/2024 [facility] DATE CREATED AUTHOR AUTHOR'S ORGANIZ ATION 12/15/2024 [facility] dical Specialists EPIC DATE CREATED AUTHOR AUTHOR'S ORGANIZ ATION 01/14/2025 [facility] DATE CREATED AUTHOR AUTHOR'S ORGANIZ ATION 01/14/2025 [facility] pital DATE CREATED AUTHOR AUTHOR'S ORGANIZ ATION 01/19/2025 [facility] DATE CREATED AUTHOR AUTHOR'S ORGANIZ ATION 02/09/[address] [facility] Ordered Prescriptions (unrec ognized section and content) [...] 3 days. 24 tablet 0 03/06/2023 03/11/2023 Prescription Sig Dispensed Refills Start Date End Da te lisinopril (PRINIVIL;ZESTRIL) 30 MG tablet Take 1 tablet by mouth daily 30 tablet 3 02/11/2024 FOR RECORDS PERTAINING TO PATIENTS WHO ARE [...] BE BASED ON THE PRIMARY CLINICAL RECORDS. [facility] [employer] [facility]. provides no warranty or guarantee of the accuracy or completeness of information in this document.
== END 2025-03-09 17:03 | disposition home or self-care (01) ==
LOC: LAB 09:29
PROVIDERS: PCP Internal Medicine; Visit Provider Obstetrics & Gynecology
DX: Z51.81 Encounter for therapeutic drug level monitoring (principal); Z32.01 Encounter for pregnancy test, result positive
CPT/HCPCS: 36415; 84702